=== PATIENT | female | born 1995 | race Caucasian/White ===

== ENCOUNTER 2020-01-23 17:10 | Emergency (ER) | payer SELFPAY ==
--- NOTE | 2020-01-23 17:20 | ED.GENADULT ---
HPI - General Adult General Chief complaint: General Medical Stated complaint: FLU LIKE SYMPTOMS Time Seen by Provider: 01/23/20 17:19 Source: patient Mode of arrival: ambulatory Limitations: no limitations History of Present Illness HPI narrative: Patient presents seeking COVID test. States she has had some mild body aches today around a friend that has COVID like symptoms. Denies any chest pain shortness of breath. No fever. No GI symptoms. Onset (ago): day(s) (today ) Severity: mild Quality: aching Relieving factors: none Exacerbating factors: none Associated symptoms: denies other symptoms Treatments prior to arrival: none Related Data Allergies Allergy/AdvReac Type Severity Reaction Status Date / Time No Known Allergies Allergy Unverified 11/26/19 16:31 Review of Systems Review of Systems: Constitutional: No Weight loss, No Fever, No Chills, No Night Sweats, No Fatigue, No Malaise ENT/Mouth: No Hearing loss, No Ear Pain, No Nasal Congestion, No Sinus Pain, No Hoarseness, No sore throat, No Rhinorrhea, No Swallowing Difficulty Eyes: No Eye Pain, No Swelling, No Redness, No Foreign Body, No Discharge, No Vision Changes Cardiovascular: No Chest Pain, No SOB, No Dyspnea on Exertion, No Orthopnea, No Edema, No Palpitations Respiratory: No Cough, No Sputum, No Wheezing, No Smoke Exposure, No Dyspnea Gastrointestinal: No Nausea, No Vomiting, No Diarrhea, No Constipation, No abdominal Pain, No Hematochezia, No Melena Genitourinary: no irregular bleeding, No Dysuria, No Urinary Frequency, No Hematuria, No Urinary Incontinence, No Urgency, No Flank Pain, No Urinary Flow Changes, No Hesitancy Musculoskeletal: No joint pain, No Myalgias, No Joint Swelling Skin: No Skin Lesions, No rash Neuro: No Weakness, No Numbness, No Paresthesias, No Loss of Consciousness, No Dizziness, No Headache Psych: No Social Issues Heme/Lymph: No Bruising, No Bleeding,No Lymphadenopathy Endocrine: No Polyuria, No Polydipsia, No Temperature Intolerance Yes all other systems are reviewed and are negative [facility] Past Medical History Attestation statement: The following information was validated with the patient. Social History Social History Advance Directives: No Advance Directives Information Provided: Yes Physical Exam Vital Signs: Vital Signs: Reviewed Const: General: cooperative and healthy appearing; No acute distress or intoxicated appearing Nutritional Appearance: average body habitus Orientation/consciousness: patient oriented x3 HENMT: Head: Yes normal to inspection Ears: hearing grossly normal bilaterally Eyes: General: appearance normal, both eyes and all related structures Visual Bryant: normal visual bryant by confrontation Neck: Neck: Yes normal visual inspection, No positive Brudzinski's sign, No positive Kernig's sign and No tender Thyroid: Thyroid normal Chest: Chest palpation & inspection: normal inspection of the chest Resp: Effort & Inspection: normal respiratory effort Cardio: Jugular venous distension: no JVD : General: Yes no CVA tenderness Back/Spine/Pelvis: Back: no CVA tenderness Skin: General skin exam: no rashes or lesions noted Neuro: General: patient oriented x3 Extrem: General: Yes normal to inspection Discharge Plan Discharge Clinical Impression: Viral syndrome Patient Disposition: Home, Self-Care Instructions: Viral Syndrome (ED) Additional Instructions: Based on your symptoms and history we have sent a COVID-19. Although your RESULT IS PENDING at this time. RESULTS should return within 72 hours. At this time you will be contacted with either NEGATIVE OR POSITIVE results. -Please wait until we contact you for your results. At this time you will be okay for discharge. Please plan for self quarantine for up to 14 days. Do not expose yourself to others. You may not go to work. If testing does come back negative you may return to activities as long as you are no longer having any symptoms for at least 3 days. Please continue to follow cold instructions and wash your hands frequently. You may take Tylenol as directed on the bottle for pain or fever. Patient seen in the emergency department on 09/04/2019 and should be excused from work until negative test results AND until 72 hours without any symptoms AND at least 10 days have passed since symptoms first appeared or since last exposure to COVID-19 positive patient CDC Guidelines for home isolation: - Stay away from others - WEAR A MASK if you are sick AND STAY HOME - Cover your mouth and nose with a tissue when you cough or sneeze. Dispose of tissues in a lined trash can and wash your hands immediately with soap and water for at least 20 seconds. If soap and water are not available, clean hands with alcohol-based hand wastewater supervisor that contains at least 60% alcohol. - Clean your hands often with soap and water for at least 20 seconds - Avoid touching your eyes, nose and mouth with unwashed hands - Do not share dishes, drinking glasses, cups, eating utensils, towels, or bedding with other people in your home. After using these items, wash them thoroughly with soap and water or put in the sugar drier. - Clean high-touch surfaces in your isolation area ( sick room and bathroom) every day; let a caregiver clean and disinfect high-touch surfaces in other areas of the home. Clean the area or item with soap and water or another detergent if it is dirty. Then, use a household disinfectant. - Limit contact with pets and animals: If you must care for a pet, wash your hands before and after interacting with them Referrals: Physician,Unknown [Primary Care Provider] - 1 week (Your primary care doctor as needed)
[2020-01-23 17:21] VITALS: BP 118/71; PULSE 86; RESP 16; TEMP 37.4; O2SAT 97; BMI 18.6
== END 2020-01-23 17:55 | disposition home or self-care (01) ==
PROVIDERS: Nurse Practitioner Primary Care; Emergency Provider Emergency Medicine
DX: B34.9 Viral infection, unspecified (principal); M79.10 Myalgia, unspecified site; Z20.828 Contact with and (suspected) exposure to other viral communicable diseases
CPT/HCPCS: 99283; U0003

== ENCOUNTER 2020-03-28 16:20 | Emergency (ER) | payer MEDICAID, SELFPAY ==
[2020-03-28] VITALS (27 sets, daily range): BP systolic 99–110; BP diastolic 72–75; PULSE 18–110; RESP 18–20; TEMP 36.1–36.3; O2SAT 97; BMI 18.2
[2020-03-28] MEDS: LORazepam 2 MG/ML VIAL IM (16:50)
[2020-03-28] MEDS: Haloperidol Lactate 5 MG/ML VIAL IM (16:50)
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
[2020-03-28] MEDS: diphenhydrAMINE HCL 50 MG/ML VIAL IM (17:10)
--- NOTE | 2020-03-28 18:43 | MHC.RECOVSUP ---
ETOH/Substance o Current location: [facility] o Identified substance use concern: - ? Intervention: o ? Plan: o ? Additional information: I was not able to engage with pt. pt was being monitored by sitters due to erratic behaviors. Will attempt again
[2020-03-28] MEDS: Ziprasidone Mesylate 20 MG VIAL 10 MG IM (20:30)
--- NOTE | 2020-03-28 21:58 | PC.NURSE ---
PT NOTED TO HAVE BRUISE TO R FOOT SUPERIOR R SIDE, PROVIDER AWARE, PT HAD COMPLAINED OF PAIN TO R FOOT UPON ARRIVAL.
[2020-03-29 01:52] LABS: COVID-19 Test Negative (Negative)
--- NOTE | 2020-03-29 02:24 | PC.NURSE ---
pt ambulatory to bathroom, has been restless the past few hours. didn't obtain urine sample in time.
--- NOTE | 2020-03-29 02:51 | PC.NURSE ---
pt asking for water, able to sit up and drink without difficulty swallowing.
--- NOTE | 2020-03-29 03:59 | PC.NURSE ---
plan is to discharge patient in morning, pt's uncle has been calling and asking to pick her up.
== END 2020-03-29 04:00 | disposition home or self-care (01) ==
PROVIDERS: Emergency Provider Emergency Medicine
DX: F10.120 Alcohol abuse with intoxication, uncomplicated (principal); Y90.9 Presence of alcohol in blood, level not specified; F19.10 Other psychoactive substance abuse, uncomplicated; S40.812A Abrasion of left upper arm, initial encounter; S40.811A Abrasion of right upper arm, initial encounter; X58.XXXA Exposure to other specified factors, initial encounter; Z20.822 Contact with and (suspected) exposure to COVID-19; Y93.9 Activity, unspecified; Y92.9 Unspecified place or not applicable; Y99.9 Unspecified external cause status
CPT/HCPCS: 36415; 87635; 96372; 99284; J1200; J2060; J3486

== ENCOUNTER 2020-04-15 13:23 | Emergency (ER) | payer MEDICAID, SELFPAY ==
--- NOTE | ~2020-04-15 | XR_ITS ---
EXAMINATION: XR FOOT, RIGHT CLINICAL INFORMATION: Pain and swelling fourth and fifth metatarsal. COMPARISON: None TECHNIQUE: AP, lateral, and oblique views of the right foot. FINDINGS: There are slightly displaced oblique fractures of the midshaft of the fourth and fifth metatarsal. No dislocation. Joint spaces are normal. XR/XR foot RT min 3V IMPRESSION: Fracture of the fourth and fifth metatarsal shaft.
--- NOTE | ~2020-04-15 | XR_ITS ---
EXAMINATION: XR CLAVICLE, RIGHT CLINICAL INFORMATION: Pain in right clavicle COMPARISON: None TECHNIQUE: Two views of the right clavicle. FINDINGS: No fracture of the clavicle. The acromioclavicular and the sternoclavicular joints are normal. Normal glenohumeral joint. Amorphous calcification over the humeral head in the soft tissues consistent with calcific tendinosis/bursitis. This measures about 1.5 cm in length. XR/XR clavicle RT IMPRESSION: 1. No abnormality of the clavicle. 2. Soft tissue calcifications adjacent humeral head consistent with calcific tendinosis/bursitis.
[2020-04-15 15:04] VITALS: BP 109/57; PULSE 69; RESP 17; TEMP 36.8; O2SAT 98; BMI 17.8
--- NOTE | 2020-04-15 15:51 | PC.NURSE ---
pt sleeping in wr, aroused ambulatory with steady gait to main ed, sleeping on stretcher, easily aroused, ewa patel at bedside for exam
--- NOTE | 2020-04-15 16:44 | PC.NURSE ---
ewa patel at bedside for exam and collection of vaginal swabs with pct nerupa present
[2020-04-15 16:59] LABS: MANUAL DIFF FLAG NO
[2020-04-15 17:00] LABS: Basophils Absolute Auto 0.1 X10*3/uL (0.0-0.2); Basophils Percent Auto 0.8 % (0-2); Eosinophils Absolute Auto 0.1 X10*3/uL (0.0-0.4); Eosinophils Percent Auto 1.5 % (0-4); Hematocrit 38.3 % (37-47); Imm Gran Abs Auto 0.02 X10*3/uL (0.00-0.03); Imm Gran Pct Auto 0.3 % (0.0-0.4); Lymphocytes Absolute Auto 3.2 X10*3/uL (1.2-4.9); Lymphocytes Percent Auto 42.7 % (20-40); Mean Corpuscular HGB Conc 33.9 g/dl (31.0-35.0); Mean Corpuscular Volume 91.4 fL (80-98); Mean Platelet Volume 9.1 fL (9.4-12.3); Monocytes Absolute Auto 0.6 X10*3/uL (0.1-1.2); Monocytes Percent Auto 7.4 % (2-11); Neutrophils Absolute Auto 3.6 X10*3/uL (2.0-8.3); Neutrophils Percent Auto 47.3 % (45-73); Platelet Count 276 X10*3/uL (160-400); Red Blood Count 4.19 X10*6/uL (4.20-5.50); Red Cell Distribution Width 12.5 % (11.0-16.0); White Blood Count 7.6 X10*3/uL (4.8-10.8)
[2020-04-15 17:06] LABS: INTERNATIONAL NORM RATIO 1.1 (0.9-1.1); Prothrombin Time 12.5 SEC (10.8-13.0)
[2020-04-15 17:24] LABS: Alanine Aminotransferase 23 U/L (0-31); Albumin Level 4.3 g/dL (3.5-5.0); Alkaline Phosphatase 95 U/L (39-117); Anion Gap 13 (12-20); Aspartate Amino Transferase 25 U/L (5-31); Bilirubin Direct 0.2 mg/dL (0.0-0.5); Bilirubin Total 0.4 mg/dL (0.0-1.0); Blood Urea Nitrogen 13 mg/dL (9-16); Calcium 9.3 mg/dL (8.4-10.2); Carbon Dioxide 28 mmol/L (22-29); Chloride 102 mmol/L (96-108); Creatinine Clr Calc Pharmacy 88.7; Estimated Glomerular Filt Rate > 60; Glucose Random 94 mg/dL (60-115); Magnesium 2.4 mg/dL (1.6-2.6); Potassium 4.3 mmol/L (3.3-5.1); Sodium 139 mmol/L (135-145); Total Protein 7.5 g/dL (6.5-8.0)
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
[2020-04-15 17:40] LABS: Syphilis Screen Nonreactive (Nonreactive)
--- NOTE | 2020-04-15 17:54 | PC.NURSE ---
pt refused covid swab pt still very intoxicated and sleeing no urine sample yet.
[2020-04-15 18:00] VITALS: BP 103/69; PULSE 55; RESP 16; TEMP 37.1; O2SAT 99
[2020-04-15] MEDS: cefTRIAXone sodium 500 MG, Lidocaine HCl 1 % MPF 1 ML IM (18:44)
[2020-04-15 18:48] LABS: HCG Quantitative < 2 mIU/mL
[2020-04-15 20:00] VITALS: PULSE 82; RESP 105; TEMP 36.4
[2020-04-15 20:32] LABS: Glucose Urine UA NEG (NEG); Leukocyte Esterase Urine NEG (NEG); Nitrite Urine POS (NEG); PH 5.5 (5.0-8.0); Specific Gravity - Urine 1.025 (1.005-1.025); UACC Culture Trigger YES; Urine Blood TRACE (NEG); Urine Ketones NEG (NEG); Urine Protein NEG (NEG-TRACE)
[2020-04-15 20:33] LABS: Appearance Urine HAZY; Color Urine YELLOW
[2020-04-15 20:40] LABS: Bacteria Urine 2+ /LPF; RBC Urine 0 /HPF (0); Squamous Epithelial Cell Urine 1+ /LPF; WBC Urine 0 /HPF (0-4)
[2020-04-15 21:50] VITALS: BP 107/72; PULSE 83; RESP 15; TEMP 36.3; O2SAT 97
--- NOTE | 2020-04-15 23:01 | PC.NURSE ---
PT GOT UP AND LEFT AWOKE SHE HAD PREVEIOUSLY SPOKEN TO AND HE WAS ON HIS WAY TO PICK HER UP FROM THE HOSPITAL. PT HAS BEEN EATING AND DRINKING WITHOUT ISSUE AND WAS JUST WAITING FOR URINE RESULTS TO COMPLETE. YESSICA BANDA AWARE PT LEFT.
[2020-04-16 04:03] LABS: CT PCR NOT DETECTED (Not Detect.)
[2020-04-16 04:04] LABS: NG PCR NOT DETECTED (Not Detect.)
[2020-04-16 11:27] LABS: BV Int Neg Control Negative (Negative); BV Int Pos Control Positive (Positive)
[2020-04-18 04:27] LABS: HBS Num1 0.44 mIU/mL (0-7.99); HBc Num1 0.11 S/CO (0.00-0.79); HIV AB/AG Nonreactive (Nonreactive); HIV Num 1 0.09 S/CO (0.00-0.99); Hepatitis B Core Antibody Nonreactive (Nonreactive); Hepatitis B Surface Antigen Negative (Negative); ~Hepatitis B Surface Antibody NONREACTIVE (Nonreactive)
[2020-04-18 04:39] LABS: ~Hepatitis C Antibody Nonreactive (Nonreactive)
[2020-04-20 07:57] LABS: Hepatitis A Antibody IgM 0.09 Index (0-0.79); ~Hepatitis A Antibody IgM Nonreactive (Nonreactive)
== END 2020-04-15 23:11 | disposition left against medical advice (07) ==
PROVIDERS: Physician Assistant Medical; Emergency Provider Emergency Medicine Emergency Medical Services
DX: S92.341A Displaced fracture of fourth metatarsal bone, right foot, initial encounter for closed fracture (principal); S92.351A Displaced fracture of fifth metatarsal bone, right foot, initial encounter for closed fracture; M79.671 Pain in right foot; F14.10 Cocaine abuse, uncomplicated; W01.0XXA Fall on same level from slipping, tripping and stumbling without subsequent striking against object, initial encounter; Y93.9 Activity, unspecified; Y92.009 Unspecified place in unspecified non-institutional (private) residence as the place of occurrence of the external cause; Y99.9 Unspecified external cause status; Z20.2 Contact with and (suspected) exposure to infections with a predominantly sexual mode of transmission
CPT/HCPCS: 36415; 73000; 73630; 80048; 80076; 81001; 81003; 83735; 84702; 85025; 85610; 86704; 86706; 86709; 86780; 86803; 87086; 87088; 87186; 87340; 87389; 87480; 87491; 87510; 87591; 87660; 96372; 99284; J0696

== ENCOUNTER 2020-05-19 14:18 | Outpatient (REF) | payer MEDICAID, SELFPAY ==
[2020-05-21 15:12] LABS: Codeine, Ur NEGATIVE ng/mL (<50); Hydrocodone, Ur NEGATIVE ng/mL (<50); Hydromorphone, Ur NEGATIVE ng/mL (<50); Morphine, Ur NEGATIVE ng/mL (<50); Norhydrocodone, Ur NEGATIVE ng/mL (<50); Noroxycodone, Ur NEGATIVE ng/mL (<50); Oxycodone, Ur NEGATIVE ng/mL (<50); Oxymorphone, Ur NEGATIVE ng/mL (<50)
== END 2020-05-19 14:19 | disposition home or self-care (01) ==
LOC: CF 14:18
PROVIDERS: Visit Provider Nurse Practitioner Psychiatric/Mental Health
DX: F11.10 Opioid abuse, uncomplicated (principal)
CPT/HCPCS: 80305; 80354; 80364; 80365; 99212

== ENCOUNTER → 2020-05-26 13:20 | Outpatient (BNVA) | payer MEDICAID, SELFPAY | PROVIDERS: Visit Provider Nurse Practitioner Psychiatric/Mental Health | DX: F11.99 Opioid use, unspecified with unspecified opioid-induced disorder (principal); F14.10 Cocaine abuse, uncomplicated; N76.0 Acute vaginitis; B96.89 Other specified bacterial agents as the cause of diseases classified elsewhere | CPT/HCPCS: 80305; 81025; 99212 ==

== ENCOUNTER 2020-05-30 13:45 | Emergency (ER) | payer MEDICAID, SELFPAY ==
[2020-05-30 14:04] VITALS: BP 000/00; PULSE 110; RESP 18; TEMP 37; O2SAT 98
[2020-05-30 14:47] LABS: Ethanol < 10 mg/dL
--- NOTE | 2020-05-30 15:27 | ED.ALCOHOL ---
HPI - Alcohol General Chief Complaint: ETOH/Substance Use Stated Complaint: CRISIS Time Seen by Provider: 05/30/20 13:54 Source: EMS Mode of arrival: EMS Limitations: other (Agitation and under the influence) History of Present Illness HPI narrative: 24-year-old female with history of polysubstance abuse preferred cocaine/cannabis and EtOH who presents via EMS with [facility] with complaint of patient was acting bizarre and agitated and acting erratic PD called EMS and patient was transferred to emergency room for potential alcohol abuse versus other illicit substance. She is extremely agitated upon arrival given that she does not want to be here and feels this is unwarranted. MD complaint: alcohol intoxication Chronic alcohol use: No Previous visits for alcohol intoxication: Yes Recent trauma: No Associated symptoms: denies other symptoms Treatments prior to arrival: physical restraints (She was placed in PD custody with handcuffs) Related Data Previous Rx's Medication Instructions Recorded mupirocin 1 appl TOPICAL BID #15 g 05/30/20 buprenorphine 8 mg-naloxone 2 mg 1 film SUBLINGUAL DAILY #7 ea 06/02/20 sublingual film metronidazole 0.75 % vaginal gel 1 appful VAGINAL DAILY 5 Days #70 g 06/02/20 Allergies Allergy/AdvReac Type Severity Reaction Status Date / Time bee venom protein (honey bee) Allergy Intermediate Localized Verified 06/02/20 16:23 swelling near sting Review of Systems Review of Systems: Yes Unobtainable due to mental condition (Agitated , refusing to participate) PMFSH Past Medical History Medical History Substance abuse Physical Exam Vital Signs: Vital Signs: Last Vital Signs Temp 98.6 F 05/30/20 14:04 Pulse 110 H 05/30/20 14:04 Resp 18 05/30/20 14:04 BP 000/00 L 05/30/20 14:04 Pulse Ox 98 05/30/20 14:04 Body Mass Index 20.0 Reviewed Const: General: anxious and combative; No intoxicated appearing Nutritional Appearance: average body habitus Orientation/consciousness: patient oriented x3 HENMT: Head: Yes normal to inspection Ears: hearing grossly normal bilaterally Eyes: General: appearance normal, both eyes and all related structures Visual Bryant: normal visual bryant by confrontation Neck: Neck: Yes normal visual inspection, No positive Brudzinski's sign, No positive Kernig's sign and No tender Thyroid: Thyroid normal Chest: Chest palpation & inspection: normal inspection of the chest Resp: Effort & Inspection: normal respiratory effort Auscultation: clear to auscultation bilaterally Cardio: Jugular venous distension: no JVD Rhythm: regular rhythm Heart sounds: S1 normal heart sound present and S2 normal heart sound present GI: Inspection: Yes normal to inspection Palpation (GI): Soft to palpation Percussion: Yes normal to percussion Auscultation: normal bowel sounds : General: Yes no CVA tenderness Back/Spine/Pelvis: Back: no CVA tenderness Skin: General skin exam: no rashes or lesions noted Neuro: General: patient oriented x3 Extrem: General: Yes normal to inspection Course Course Course Narrative: Extremely agitated upon arrival but able to redirect. Similar to previous. Patient's. No SI or HI. Admits to illicit substance use. The the answer is a. Denies any need to go to detox or speak to anybody here. Requesting to be discharged. MDM - Alcohol Lab Data Labs: Lab Results 05/30/20 Range/Units 14:14 Ethyl Alcohol < 10 mg/dL Discharge Plan Discharge Clinical Impression: Substance abuse, Anxiety, Abrasion of forearm, left Patient Disposition: Home, Self-Care Instructions: Polysubstance Abuse (ED), Anxiety (ED) Additional Instructions: Please go to detox Follow up with her primary care doctor Return if any concerns or worsening symptoms Thank you Prescriptions: New mupirocin 2 % ointment 1 appl topical BID Qty: 15 RF: 0 No Action buprenorphine-naloxone [Suboxone] 8-2 mg film 1 film sublingual DAILY Qty: 7 RF: 0 metronidazole 0.75 % gel 1 appful vaginal DAILY 5 Days Qty: 70 RF: 0 Referrals: ED Physician,Generic [Physician] - 2 days Interventions: ED Discharge Assessment Last Done: 05/30/20 15:41 Discharge Date/Time: 05/30/20 15:43
--- NOTE | 2020-05-30 15:40 | PC.NURSE ---
Pt's ETOH level negative. She was becoming very agitated yelling and screaming that she wanted to leave. Per [employer]ONECUTTER Norbert okay to leave. Pt's belongings given back to her including crumpled up money <$80 that was in her pocket. Pt escorted out of the building by security.
== END 2020-05-30 15:43 | disposition home or self-care (01) ==
PROVIDERS: Nurse Practitioner Primary Care; Emergency Provider Emergency Medicine
DX: S50.812A Abrasion of left forearm, initial encounter (principal); F10.129 Alcohol abuse with intoxication, unspecified; M79.632 Pain in left forearm; F41.1 Generalized anxiety disorder; F43.0 Acute stress reaction; Y90.0 Blood alcohol level of less than 20 mg/100 ml; X58.XXXA Exposure to other specified factors, initial encounter; Y93.9 Activity, unspecified; Y92.9 Unspecified place or not applicable; Y99.9 Unspecified external cause status; Z71.41 Alcohol abuse counseling and surveillance of alcoholic
CPT/HCPCS: 36415; 80320; 99283

== ENCOUNTER → 2020-06-02 15:40 | Outpatient (BNVA) | payer MEDICAID, SELFPAY | PROVIDERS: Visit Provider Nurse Practitioner Psychiatric/Mental Health | DX: F11.99 Opioid use, unspecified with unspecified opioid-induced disorder (principal); F14.10 Cocaine abuse, uncomplicated; Z51.81 Encounter for therapeutic drug level monitoring | CPT/HCPCS: 80305; 99212 ==

== ENCOUNTER → 2020-06-09 15:45 | Outpatient (BNVA) | payer MEDICAID, SELFPAY | PROVIDERS: Visit Provider Nurse Practitioner Psychiatric/Mental Health | DX: Z51.81 Encounter for therapeutic drug level monitoring (principal); F19.10 Other psychoactive substance abuse, uncomplicated ==

== ENCOUNTER → 2020-06-10 10:40 | Outpatient (BNVA) | payer MEDICAID, SELFPAY | PROVIDERS: Visit Provider Nurse Practitioner Psychiatric/Mental Health ==

== ENCOUNTER 2020-07-08 12:08 | Emergency (ER) | payer MEDICAID, SELFPAY ==
--- NOTE | ~2020-07-08 | XR_ITS ---
EXAMINATION: XR SHOULDER, RIGHT CLINICAL INFORMATION: Injury. COMPARISON: X-ray 04/15/2020 right clavicle TECHNIQUE: Four views of the right shoulder. FINDINGS: There is a lucency in the greater tuberosity/lateral humeral head, which appears new as compared to the prior radiograph. There are calcifications/ossifications adjacent to this focus, which appears more prominent as compared to the prior radiograph. The findings raise concern for a fracture with displaced osseous fragments in addition to the previously noted calcific tendinitis/bursitis in this region. The humeral head articulates with the glenoid. AC joint is intact. Visualized right lung is clear. XR/XR shoulder RT min 2V IMPRESSION: New lucency in the greater tuberosity/lateral humeral head, with increase in prominence of the calcifications/ossifications adjacent to the greater tuberosity. Findings raise concern for a fracture with displaced osseous fragments in addition to the previously noted calcific tendinitis/bursitis in this region. Please clinically correlate.
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
--- NOTE | ~2020-07-08 | XR_ITS ---
EXAMINATION: XR FINGER, LEFT CLINICAL INFORMATION: Injury index finger COMPARISON: None TECHNIQUE: 3 views of the 2nd digit. FINDINGS: Second digit: No visible acute fracture or dislocation. The articulation appears maintained at the joints. The remainder of the visualized bones appear intact without evidence of discrete fracture. XR/XR finger LT min 2V IMPRESSION: No radiographically visible acute fracture or dislocation of the 2nd digit.
[2020-07-08 12:26] VITALS: BP 106/84; BP 110/82; PULSE 81; PULSE 84; RESP 16; TEMP 36.7; O2SAT 96; BMI 15.9
[2020-07-08] MEDS: Diphth,Pertus(ACell),Tet Adult 0.5 ML SYRINGE IM (12:50)
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
== END 2020-07-08 15:23 ==
PROVIDERS: Emergency Provider Emergency Medicine
DX: S60.022A Contusion of left index finger without damage to nail, initial encounter (principal); S00.03XA Contusion of scalp, initial encounter; S43.401A Unspecified sprain of right shoulder joint, initial encounter; S00.81XA Abrasion of other part of head, initial encounter; Y35.893A Legal intervention involving other specified means, suspect injured, initial encounter; F11.20 Opioid dependence, uncomplicated; Y93.89 Activity, other specified; Y92.512 Supermarket, store or market as the place of occurrence of the external cause; Y99.9 Unspecified external cause status
CPT/HCPCS: 70450; 73030; 73140; 90471; 90715; 99283; 99284

== ENCOUNTER 2020-08-04 07:13 | Emergency (ER) | payer MEDICAID, SELFPAY ==
[2020-08-04 07:17] VITALS: BP 143/83; PULSE 91; RESP 20; TEMP 36.6; O2SAT 97; BMI 19.5
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
[2020-08-04] MEDS: cefTRIAXone sodium 500 MG, Lidocaine HCl 1 % MPF 1 ML IM (08:07)
[2020-08-04 08:08] LABS: UPreg QC Valid YES
[2020-08-04 08:11] LABS: Urine Pregnancy NEGATIVE (NEGATIVE)
[2020-08-04 08:12] VITALS: BP 103/71; PULSE 89; RESP 20; O2SAT 97
--- NOTE | 2020-08-04 08:18 | PC.NURSE ---
Pt alert, answers questions appropriately. Pt anxious, pacing. UA obtained, NG swab obtained. Lab results pending.
[2020-08-04 10:48] LABS: CT PCR NOT DETECTED (Not Detect.); NG PCR NOT DETECTED (Not Detect.)
== END 2020-08-04 08:31 | disposition home or self-care (01) ==
LOC: HO.ED 07:40
PROVIDERS: Emergency Provider Emergency Medicine
DX: L03.211 Cellulitis of face (principal); N89.8 Other specified noninflammatory disorders of vagina; L98.9 Disorder of the skin and subcutaneous tissue, unspecified; F11.10 Opioid abuse, uncomplicated; Z79.899 Other long term (current) drug therapy; F17.200 Nicotine dependence, unspecified, uncomplicated; Z71.6 Tobacco abuse counseling; Z20.2 Contact with and (suspected) exposure to infections with a predominantly sexual mode of transmission
CPT/HCPCS: 81025; 87491; 87591; 96372; 99284; J0696

== ENCOUNTER 2020-09-19 13:27 | Inpatient (IN) | payer MEDICAID, SELFPAY ==
[2020-09-19] VITALS (15 sets, daily range): BP systolic 100–185; BP diastolic 64–100; PULSE 86–120; RESP 16–50; TEMP 36.6–38.2; O2SAT 90–100; BMI 20.5
--- NOTE | ~2020-09-19 | XR_ITS ---
EXAMINATION: XR CHEST CLINICAL INFORMATION: Aspiration COMPARISON: None TECHNIQUE: Frontal view of the chest was obtained. FINDINGS: Allowing for the supine positioning, no significant abnormality is noted involving the heart, lungs, mediastinum, bony thorax or soft tissues. XR/XR chest 1V IMPRESSION: No acute intrathoracic disease.
--- NOTE | ~2020-09-19 | CT_ITS ---
EXAMINATION: CT HEAD WITHOUT CONTRAST CT CERVICAL SPINE WITHOUT CONTRAST CLINICAL INFORMATION: Altered mental status. COMPARISON: CT head from 07/08/2020. TECHNIQUE: Contiguous axial imaging was performed from the skull base to vertex without intravenous administration of contrast. Contiguous axial imaging was performed from the upper chest through the skull base without intravenous administration of contrast. Coronal and sagittal reformats were obtained at the acquisition workstation. DLP: 1039 mGy-cm FINDINGS: Head: Exam is significantly motion degraded. Within this limitation, there is no overt evidence of acute intracranial hemorrhage or edematous territorial infarction. No demonstrated abnormal attenuation within the brain parenchyma. Redemonstrated loss of jean-white matter differentiation. The ventricles are normal in size and configuration. No evidence for obstructive hydrocephalus. No abnormal mass effect or midline shift. No extra-axial fluid collections. No acute soft tissue or osseous abnormalities. The mastoid air cells and paranasal sinuses are clear. Cervical Spine: Exam is moderately motion degraded. The atlantooccipital and atlantoaxial articulations remain well aligned. Mild reversal of the normal cervical lordosis centered on C4. Otherwise, there is anatomic alignment of the vertebral bodies and posterior elements. No evidence of acute fracture or subluxation. The vertebral body heights and disc spaces are maintained. There is no prevertebral soft tissue swelling. The thyroid gland and remaining cervical soft tissues are normal in appearance. Moderate multifocal airspace opacities in the dependent aspects of the visualized upper lungs. CT/CT cervical spine wo con IMPRESSION: Exam is significantly motion degraded. Within the limitations of this exam, there is no evidence of acute intracranial hemorrhage or edematous territorial infarction. No evidence of acute fracture or subluxation of the cervical spine. Moderate multifocal airspace opacities in the visualized upper lungs suggestive of an active infectious/inflammatory process.
--- NOTE | ~2020-09-19 | CT_ITS ---
EXAMINATION: CT CHEST WITHOUT CONTRAST CLINICAL INFORMATION: AMS rule out pneumonia. COMPARISON: Chest x-ray 08/20/2020 TECHNIQUE: Multidetector volumetric CT imaging of the chest was done. Axial MIP volume rendering provided. Sagittal and coronal reformatted images were obtained. This CT examination was performed using dose optimization techniques as appropriate, variously including the following: *Automated exposure control *Adjustment of mA and/or kV according to patient size (this includes techniques or standardized protocols for targeted exams where dose is matched to indication/reason for exam; i.e. extremities or head) *Use of iterative reconstruction technique DLP: 285 mGy-cm FINDINGS: PHOTOGRAPHY SPOTTER: Unremarkable chest exam. LUNGS: The exam is limited secondary to breathing artifact throughout the exam. The lungs are well-expanded with radicular stranding and patchy opacity in both upper lobes posterior segments and both superior segments of lower lobe consistent with dependent aspiration pneumonia or infiltrates. May similar minimal patchy of patchy opacity seen in both lung bases as well. No pulmonary nodules or enlarged mass visualized. MEDIASTINUM: The central trachea and bronchi are widely patent. Heart size and the great vessels are normal caliber. No abnormal size mediastinal or hilar lymph nodes seen. There is no pericardial effusion. PLEURA: There is no pleural effusion. No pleural mass or thickening. AXILLA: There are no abnormal size axillary lymph nodes. UPPER ABDOMEN: Visualized liver, spleen, pancreas and bilateral adrenal glands are unremarkable. OSSEOUS STRUCTURES: No lytic or sclerotic process seen. CT/CT chest wo con IMPRESSION: Bilateral posterior segment upper lobe, superior and posterior basilar segments lower lobe parenchymal opacities likely dependent aspiration pneumonia. There is no lung nodule or mass seen. No abnormal size mediastinal or axillary lymphadenopathy.
--- NOTE | 2020-09-19 13:48 | ECG_ITS ---
Test Reason : AMS Blood Pressure : / mmHG Vent. Rate : 113 BPM Atrial Rate : 113 BPM P-R Int : 200 ms QRS Dur : 092 ms QT Int : 304 ms P-R-T Axes : 068 -33 047 degrees QTc Int : 416 ms Sinus tachycardia Left axis deviation Incomplete right bundle branch block Nonspecific ST changes Abnormal ECG No previous ECGs available Referred By: Carmelita Barbosa Electronically Signed By:Omar Fernandes
--- NOTE | 2020-09-19 14:04 | ED_ITS ---
HPI - Altered Mental Status General Chief Complaint: Altered Mental Status <YESSICA Hall - Last Filed: 09/19/20 17:49> Stated Complaint: AMS <YESSICA Hall - Last Filed: 09/19/20 17:49> Time Seen by Provider: 09/19/20 13:44 <YESSICA Hall - Last Filed: 09/19/20 17:49> Source: EMS <YESSICA Hall - Last Filed: 09/19/20 17:49> Mode of arrival: EMS <YESSICA Hall - Last Filed: 09/19/20 17:49> Limitations: altered mental status <YESSICA Hall - Last Filed: 09/19/20 17:49> History of Present Illness HPI narrative: 25-year-old female with a past medical history of polysubstance abuse per for cocaine/cannabis and EtOH who presents via EMS with altered mental status after her friend apparently called her brother and told him that she was not waking up there for her brother and his friend went to her apartment and noticed that she was breathing heavily per the friend over the phone and called EMS. Although the friend over the phone at the number that were supposed to call for the brother reports that she does not know much else and that the brother should be coming to the emergency department. On exam patient is acting bizarre, agitated and not providing any history. - I spoke to the patient's sister in a call at [phone] and she reported that she is very concerned about her sister would like her to be committed due to she believes her sister is going to harm herself by doing drugs. She is concerned because her parents both overdose approximately 3 years ago and Saima has not taken it well. She also is living in her parent's old house which is condemned. <YESSICA Hall - Last Filed: 09/19/20 17:49> MD complaint: altered mental status <YESSICA Hall - Last Filed: 09/19/20 17:49> Related Data Home Medications: Previous Rx's Medication Instructions Recorded mupirocin 1 appl TOPICAL BID #15 g 05/30/20 buprenorphine 8 mg-naloxone 2 mg 1 film SUBLINGUAL DAILY #7 ea 06/02/20 sublingual film metronidazole 0.75 % vaginal gel 1 appful VAGINAL DAILY 5 Days #70 g 06/02/20 cephalexin 500 mg PO BID 7 Days #14 cap 08/04/20 doxycycline hyclate 100 mg PO BID 7 Days #14 cap 08/04/20 mupirocin 1 appl TOPICAL BID 7 Days #15 g 08/04/20 <YESSICA Hall - Last Filed: 09/19/20 17:49> Allergies/Adverse Reactions: Allergies Allergy/AdvReac Type Severity Reaction Status Date / Time bee venom protein (honey bee) Allergy Intermediate Localized Verified 08/04/20 07:20 swelling near sting <YESSICA Hall - Last Filed: 09/19/20 17:49> Review of Systems Review of Systems: Yes Unobtainable due to mental status <YESSICA Hall - Last Filed: 09/19/20 17:49> FORMERLY [facility], [facility] Past Medical History Source: obtained from family <YESSICA Hall - Last Filed: 09/19/20 17:49> Medical History: Medical History Substance abuse <YESSICA Hall - Last Filed: 09/19/20 17:49> Social History Social History: Social History Patient Tobacco Use Status: Current someday Tobacco user Substance Use Type: Crack/Cocaine Advance Directives: Yes Advance Directives Information Provided: Yes Advance Directives on File: No <YESSICA Hall - Last Filed: 09/19/20 17:49> Physical Exam Vital Signs: Vital Signs: Last Vital Signs Temp 98.7 F 09/19/20 19:46 Pulse 88 09/19/20 19:46 Resp 32 H 09/19/20 19:46 BP 100/64 09/19/20 19:46 Pulse Ox 98 09/19/20 19:46 Body Mass Index 20.5 Vital signs have been reviewed as normal and appeared to be correct. Blood pressure normal. Heart rate normal. Respiration rate normal. Temperature normal. Oxygen saturation normal. <YESSICA Hall - Last Filed: 09/19/20 17:49> Vital Signs: Last Vital Signs Temp 98.7 F 09/19/20 19:46 Pulse 88 09/19/20 19:46 Resp 32 H 09/19/20 19:46 BP 100/64 09/19/20 19:46 Pulse Ox 98 09/19/20 19:46 Body Mass Index 20.5 <John Durham MD - Last Filed: 09/19/20 20:54> Appearance: Altered/anxious/combative/agitated. Appears intoxicated very disheveled and unkept. Head: Patient has multiple bruises/abrasions on her face/forehead and she has possible dirt in her nose and her mouth versus blood. Otherwise she is able to rotate head bilaterally. Eyes: Pupils are dilated although minimaql reactive to light. No nystagmus is noted. Conjunctiva and sclera normal. Eyelids normal. Corneal reflex normal. ENT: EAC normal. TM's Normal. No septal hematomas noted. No hemotympanum is noted. Hearing normal. Pharynx normal. Uvula midline. tongue midline. Dry mucous membranes. No trismus noted. No drooling noted. No muffled voice noted. No nystagmus noted. Neck: Normal inspection. Neck supple. FROM. No adenopathy. Trachea midline. Thyroid Normal. No meningeal signs. No neck mass noted. CVS: Normal heart rate and rhythm. Heart sound normal. No murmurs noted. Pulses normal throughout. Respiratory: No respiratory distress. Painless inspiration. Breath sounds normal. No wheezes/rales/rhonchi noted. Chest nontender. No accessory muscle usage noted or decreased air movement noted. Abdomen: Soft and nontender. Bowel sounds normal in all 4 quadrants. No distention noted. No organomegaly noted. No visible injury noted. Questioning as patient's abdomen is mildly distended. Back: No CVA tenderness. Full range of motion noted. Skin: Skin warm and dry. Normal skin color. Normal skin turgor. Patient has multiple abrasions/lesions/ecchymosis scattered throughout the entire body. No lacerations are noted. Extremities: No lower extremity edema. Extremities exhibit normal range of motion. Extremities nontender. Neuro: Altered/anxious/combative/agitated appears very intoxicated. No motor deficit. No sensory deficit. Reflexes normal. Moving all extremities. No focal motor deficits. <YESSICA Hall - Last Filed: 09/19/20 17:49> Course Course Course Narrative: 13:50pm - 25-year-old female with a past medical history of polysubstance abuse usually cocaine/cannabis and EtOH presenting to the ED via EMS with altered mental status found by her friend/brother they called EMS. When EMS arrived they noticed that the patient had multiple empty bottles of Percocet and Suboxone laying around her. - On arrival patient is very combative/agitated/anxious not providing any hist ory she appears very disheveled and unkept. Pupils are dilated although reactive. She has multiple abrasions/lesions/ecchymosis scattered throughout the face and the body. Questioning dry blood to the oropharynx/nasal passages versus dirt. Otherwise she is moving all extremities. No focal neuro deficits are noted. No obvious signs of trauma. Plan: POC, Labs, blood cultures, lactic acid, UA, drugs of abuse screen, EKG then re-evaluate. <YESSICA Hall - Last Filed: 09/19/20 17:49> Reevaluation(s) Reevaluation #1: - patient became very agitated and she dove over the bed therefore she had to be chemically restrained with 2 mg of IM Ativan and 5 mg of IM Haldol. - labs return patient with an elevated white blood cell count 54587. Lactic acid 3.4. AST 82. Serum quant negative for . Patient negative for salicylates although Tylenol level was 23 therefore will re-evaluate in 3 hours. Otherwise all other labs appear to be within normal limits. ETOH level negative. Pending drugs of abuse screen/UA, CT scan of brain/cervical spine/Chest/abd/pelvis without contrast - due to patient's elevated white blood cell count and lactic acid patient will be given Rocephin for possible cellulitis due to she has multiple abrasions/ecchymosis/erythematous areas that could be related to cellulitis otherwise no other signs of infection/sepsis. <YESSICA Hall - Last Filed: 09/19/20 17:49> Patient post CT scan head and C-spine which is negative for any acute bleed or dislocation patient has to be given 80 mg of propofol for sedation for the test Cat catheter was placed and about 2 L of urine came out symptoms likely matching anticholinergic overdose although we not seen any tablets next to her continue to watch <John Durham MD - Last Filed: 09/19/20 20:54> Time: 15:00 <YESSICA Hall - Last Filed: 09/19/20 17:49> 18:55 <John Durham MD - Last Filed: 09/19/20 20:54> Reevaluation #2: - patient continues to be very agitated/restless therefore she was given 4 additional units of IV Ativan so we can actually have the patient have the CT scan of her brain/cervical spine/Chest/abd/pelvis without constrast - Repeat labs pending - Sign out to MD Herminio pending above <YESSICA Hall - Last Filed: 09/19/20 17:49> Time: 17:31 <YESSICA Hall - Last Filed: 09/19/20 17:49> MDM - Altered Mental Status MDM Narrative Medical decision making narrative: Patient with polysubstance abuse came very agitated received multiple doses of benzos along with Zyprexa and Haldol still patient is agitated people's dilated will give her propofol 50 mg IM. Will get head CT and C-spine CT. Check venous gases repeat acetaminophen levels in 4 hours Patient's labs reviewed patient has rhabdomyolysis [place] CP[place] was [address] with opiates and cocaine positive. Will admit patient for rhabdomyolysis and substance abuse/overdose at this time patient is sleeping with stable vitals started on bicarb drip will give calcium gluconate also <John Durham MD - Last Filed: 09/19/20 20:54> Medical Records Attestation: I reviewed the patient's medical records. <YESSICA Hall - Last Filed: 09/19/20 17:49> I reviewed the patient's medical records. <John Durham MD - Last Filed: 09/19/20 20:54> Lab Data Attestation: I reviewed the patient's lab results. <YESSICA Hall - Last Filed: 09/19/20 17:49> I reviewed the patient's lab results. <John Durham MD - Last Filed: 09/19/20 20:54> Result diagrams: : 09/19/20 17:00 09/19/20 19:39 <YESSICA Hall - Last Filed: 09/19/20 17:49> Labs: Lab Results 09/19/20 09/19/20 09/19/20 Range/Units 00:00 14:09 14:09 WBC 18.6 H (4.8-10.8) X10*3/uL RBC 4.49 (4.20-5.50) X10*6/uL Hgb 13.9 (12.0-16.0) g/dl Hct 40.6 (37-47) % MCV 90.4 (80-98) fL MCH 31.0 (27.0-33.0) pg MCHC 34.2 (31.0-35.0) g/dl RDW 12.1 (11.0-16.0) % Plt Count 262 (160-400) X10*3/uL MPV 9.5 (9.4-12.3) fL Immature Gran % (Auto) 0.4 (0.0-0.4) % Neut % (Auto) 93.2 H (45-73) % Lymph % (Auto) 3.8 L (20-40) % [place] % (Auto) 2.4 (2-11) % Eos % (Auto) 0.0 (0-4) % Baso % (Auto) 0.2 (0-2) % Lymph # (Auto) 0.7 L (1.2-4.9) X10*3/uL [place] # (Auto) 0.5 (0.1-1.2) X10*3/uL Eos # (Auto) 0.0 (0.0-0.4) X10*3/uL Baso # (Auto) 0.0 (0.0-0.2) X10*3/uL Abs Immat Gran (auto) 0.07 H (0.00-0.03) X10*3/uL Absolute Neuts (auto) 17.3 H (2.0-8.3) X10*3/uL Absolute Nucleated RBC 0.000 (0.0-0.012) X10*3/uL Nucleated RBC % (auto) 0.0 (0.0-0.2) /100WBC Smear Tech's Comments VERIFIED Hold Purple Top PT 12.8 (9.9-13.0) SEC INR 1.1 (0.9-1.1) VBG pH (7.32-7.43) VBG pCO2 mmHg VBG pO2 mmHg VBG HCO3 (22-26) mmol/L VBG O2 Saturation % VBG Base Excess mmol/L Sodium (135-145) mmol/L Potassium (3.3-5.1) mmol/L Chloride (96-108) mmol/L Carbon Dioxide (22-29) mmol/L Anion Gap (12-20) BUN (9-16) mg/dL Creatinine (0.5-1.4) mg/dL Estim Creat Clear Calc Estimated GFR POC Glucose (60-115) mg/dL Random Glucose (60-115) mg/dL Lactic Acid (0.5-2.0) mmol/L Lactic Acid Fup @ 2Hr (0.5-2.0) mmol/L Lactic Acid Fup @ 4Hr (0.5-2.0) mmol/L Calcium (8.4-10.2) mg/dL Magnesium (1.6-2.6) mg/dL Total Bilirubin (0.0-1.0) mg/dL AST (5-31) U/L ALT (0-31) U/L Alkaline Phosphatase (39-117) U/L Ammonia (13-55) umol/L Total Creatine Kinase (26-140) U/L Troponin I High Sens (<3.5-17.0) ng/L Total Protein (6.5-8.0) g/dL Albumin (3.5-5.0) g/dL Lipase (8-78) U/L Beta HCG, Quant mIU/mL Urine Color Urine Appearance Urine pH (5.0-8.0) Ur Specific [place] (1.005-1.025) Urine Protein (NEG-TRACE) MG/DL Urine Glucose (UA) (NEG) MG/DL Urine Ketones (NEG) MG/DL Urine Blood (NEG) Urine Nitrite (NEG) Ur Leukocyte Esterase (NEG) Urine RBC (0) /HPF Urine WBC (0-4) /HPF Ur Squamous Epith Cells /LPF Amorphous Sediment /LPF Urine Bacteria /LPF Urine Mucus /LPF Salicylates (15-30) mg/dL Urine Opiates Screen (Not Detect) Acetaminophen (<30) mcg/mL Ur Barbiturates Screen (Not Detect) Ur Phencyclidine Scrn (Not Detect) Ur Amphetamines Screen (Not Detect) U Benzodiazepines Scrn (Not Detect) Urine Cocaine Screen (Not Detect) U Marijuana (THC) Screen (Not Detect) Ethyl Alcohol mg/dL COVID-19 ([facility]) Negative (Negative) COVID-19 Clin Com See Note 09/19/20 09/19/20 09/19/20 Range/Units 14:09 14:09 14:09 WBC (4.8-10.8) X10*3/uL RBC (4.20-5.50) X10*6/uL Hgb (12.0-16.0) g/dl Hct (37-47) % MCV (80-98) fL MCH (27.0-33.0) pg MCHC (31.0-35.0) g/dl RDW (11.0-16.0) % Plt Count (160-400) X10*3/uL MPV (9.4-12.3) fL Immature Gran % (Auto) (0.0-0.4) % Neut % (Auto) (45-73) % Lymph % (Auto) (20-40) % [place] % (Auto) (2-11) % Eos % (Auto) (0-4) % Baso % (Auto) (0-2) % Lymph # (Auto) (1.2-4.9) X10*3/uL [place] # (Auto) (0.1-1.2) X10*3/uL Eos # (Auto) (0.0-0.4) X10*3/uL Baso # (Auto) (0.0-0.2) X10*3/uL Abs Immat Gran (auto) (0.00-0.03) X10*3/uL Absolute Neuts (auto) (2.0-8.3) X10*3/uL Absolute Nucleated RBC (0.0-0.012) X10*3/uL Nucleated RBC % (auto) (0.0-0.2) /100WBC Smear Tech's Comments Hold Purple Top SEE NOTE PT (9.9-13.0) SEC INR (0.9-1.1) VBG pH (7.32-7.43) VBG pCO2 mmHg VBG pO2 mmHg VBG HCO3 (22-26) mmol/L VBG O2 Saturation % VBG Base Excess mmol/L Sodium 139 (135-145) mmol/L Potassium 3.3 D (3.3-5.1) mmol/L Chloride 101 (96-108) mmol/L Carbon Dioxide 19 L (22-29) mmol/L Anion Gap 22 H (12-20) BUN 13 (9-16) mg/dL Creatinine 0.95 (0.5-1.4) mg/dL Estim Creat Clear Calc 78.5 Estimated GFR > 60 POC Glucose (60-115) mg/dL Random Glucose 73 (60-115) mg/dL Lactic Acid (0.5-2.0) mmol/L Lactic Acid Fup @ 2Hr (0.5-2.0) mmol/L Lactic Acid Fup @ 4Hr (0.5-2.0) mmol/L Calcium 9.1 (8.4-10.2) mg/dL Magnesium 2.6 (1.6-2.6) mg/dL Total Bilirubin 0.2 (0.0-1.0) mg/dL AST 82 H (5-31) U/L ALT 30 (0-31) U/L Alkaline Phosphatase 88 (39-117) U/L Ammonia (13-55) umol/L Total Creatine Kinase (26-140) U/L Troponin I High Sens (<3.5-17.0) ng/L Total Protein 8.9 H (6.5-8.0) g/dL Albumin 5.0 (3.5-5.0) g/dL Lipase 26 (8-78) U/L Beta HCG, Quant < 2 mIU/mL Urine Color Urine Appearance Urine pH (5.0-8.0) Ur Specific [place] (1.005-1.025) Urine Protein (NEG-TRACE) MG/DL Urine Glucose (UA) (NEG) MG/DL Urine Ketones (NEG) MG/DL Urine Blood (NEG) Urine Nitrite (NEG) Ur Leukocyte Esterase (NEG) Urine RBC (0) /HPF Urine WBC (0-4) /HPF Ur Squamous Epith Cells /LPF Amorphous Sediment /LPF Urine Bacteria /LPF Urine Mucus /LPF Salicylates (15-30) mg/dL Urine Opiates Screen (Not Detect) Acetaminophen (<30) mcg/mL Ur Barbiturates Screen (Not Detect) Ur Phencyclidine Scrn (Not Detect) Ur Amphetamines Screen (Not Detect) U Benzodiazepines Scrn (Not Detect) Urine Cocaine Screen (Not Detect) U Marijuana (THC) Screen (Not Detect) Ethyl Alcohol mg/dL COVID-19 ([facility]) (Negative) COVID-19 Clin Com 09/19/20 09/19/20 09/19/20 Range/Units 14:09 14:09 14:10 WBC (4.8-10.8) X10*3/uL RBC (4.20-5.50) X10*6/uL Hgb (12.0-16.0) g/dl Hct (37-47) % MCV (80-98) fL MCH (27.0-33.0) pg MCHC (31.0-35.0) g/dl RDW (11.0-16.0) % Plt Count (160-400) X10*3/uL MPV (9.4-12.3) fL Immature Gran % (Auto) (0.0-0.4) % Neut % (Auto) (45-73) % Lymph % (Auto) (20-40) % [place] % (Auto) (2-11) % Eos % (Auto) (0-4) % Baso % (Auto) (0-2) % Lymph # (Auto) (1.2-4.9) X10*3/uL [place] # (Auto) (0.1-1.2) X10*3/uL Eos # (Auto) (0.0-0.4) X10*3/uL Baso # (Auto) (0.0-0.2) X10*3/uL Abs Immat Gran (auto) (0.00-0.03) X10*3/uL Absolute Neuts (auto) (2.0-8.3) X10*3/uL Absolute Nucleated RBC (0.0-0.012) X10*3/uL Nucleated RBC % (auto) (0.0-0.2) /100WBC Smear Tech's Comments Hold Purple Top PT (9.9-13.0) SEC INR (0.9-1.1) VBG pH (7.32-7.43) VBG pCO2 mmHg VBG pO2 mmHg VBG HCO3 (22-26) mmol/L VBG O2 Saturation % VBG Base Excess mmol/L Sodium (135-145) mmol/L Potassium (3.3-5.1) mmol/L Chloride (96-108) mmol/L Carbon Dioxide (22-29) mmol/L Anion Gap (12-20) BUN (9-16) mg/dL Creatinine (0.5-1.4) mg/dL Estim Creat Clear Calc Estimated GFR POC Glucose (60-115) mg/dL Random Glucose (60-115) mg/dL Lactic Acid 3.4 H* (0.5-2.0) mmol/L Lactic Acid Fup @ 2Hr (0.5-2.0) mmol/L Lactic Acid Fup @ 4Hr (0.5-2.0) mmol/L Calcium (8.4-10.2) mg/dL Magnesium (1.6-2.6) mg/dL Total Bilirubin (0.0-1.0) mg/dL AST (5-31) U/L ALT (0-31) U/L Alkaline Phosphatase (39-117) U/L Ammonia (13-55) umol/L Total Creatine Kinase (26-140) U/L Troponin I High Sens (<3.5-17.0) ng/L Total Protein (6.5-8.0) g/dL Albumin (3.5-5.0) g/dL Lipase (8-78) U/L Beta HCG, Quant mIU/mL Urine Color Urine Appearance Urine pH (5.0-8.0) Ur Specific [place] (1.005-1.025) Urine Protein (NEG-TRACE) MG/DL Urine Glucose (UA) (NEG) MG/DL Urine Ketones (NEG) MG/DL Urine Blood (NEG) Urine Nitrite (NEG) Ur Leukocyte Esterase (NEG) Urine RBC (0) /HPF Urine WBC (0-4) /HPF Ur Squamous Epith Cells /LPF Amorphous Sediment /LPF Urine Bacteria /LPF Urine Mucus /LPF Salicylates < 5.0 L (15-30) mg/dL Urine Opiates Screen (Not Detect) Acetaminophen 23 (<30) mcg/mL Ur Barbiturates Screen (Not Detect) Ur Phencyclidine Scrn (Not Detect) Ur Amphetamines Screen (Not Detect) U Benzodiazepines Scrn (Not Detect) Urine Cocaine Screen (Not Detect) U Marijuana (THC) Screen (Not Detect) Ethyl Alcohol < 10 mg/dL COVID-19 ([facility]) (Negative) COVID-19 Clin Com 09/19/20 09/19/20 09/19/20 Range/Units 14:10 15:47 15:47 WBC (4.8-10.8) X10*3/uL RBC (4.20-5.50) X10*6/uL Hgb (12.0-16.0) g/dl Hct (37-47) % MCV (80-98) fL MCH (27.0-33.0) pg MCHC (31.0-35.0) g/dl RDW (11.0-16.0) % Plt Count (160-400) X10*3/uL MPV (9.4-12.3) fL Immature Gran % (Auto) (0.0-0.4) % Neut % (Auto) (45-73) % Lymph % (Auto) (20-40) % [place] % (Auto) (2-11) % Eos % (Auto) (0-4) % Baso % (Auto) (0-2) % Lymph # (Auto) (1.2-4.9) X10*3/uL [place] # (Auto) (0.1-1.2) X10*3/uL Eos # (Auto) (0.0-0.4) X10*3/uL Baso # (Auto) (0.0-0.2) X10*3/uL Abs Immat Gran (auto) (0.00-0.03) X10*3/uL Absolute Neuts (auto) (2.0-8.3) X10*3/uL Absolute Nucleated RBC (0.0-0.012) X10*3/uL Nucleated RBC % (auto) (0.0-0.2) /100WBC Smear Tech's Comments Hold Purple Top PT (9.9-13.0) SEC INR (0.9-1.1) VBG pH (7.32-7.43) VBG pCO2 mmHg VBG pO2 mmHg VBG HCO3 (22-26) mmol/L VBG O2 Saturation % VBG Base Excess mmol/L Sodium (135-145) mmol/L Potassium (3.3-5.1) mmol/L Chloride (96-108) mmol/L Carbon Dioxide (22-29) mmol/L Anion Gap (12-20) BUN (9-16) mg/dL Creatinine (0.5-1.4) mg/dL Estim Creat Clear Calc Estimated GFR POC Glucose (60-115) mg/dL Random Glucose (60-115) mg/dL Lactic Acid (0.5-2.0) mmol/L Lactic Acid Fup @ 2Hr (0.5-2.0) mmol/L Lactic Acid Fup @ 4Hr (0.5-2.0) mmol/L Calcium (8.4-10.2) mg/dL Magnesium (1.6-2.6) mg/dL Total Bilirubin (0.0-1.0) mg/dL AST (5-31) U/L ALT (0-31) U/L Alkaline Phosphatase (39-117) U/L Ammonia 23 (13-55) umol/L Total Creatine Kinase (26-140) U/L Troponin I High Sens (<3.5-17.0) ng/L Total Protein (6.5-8.0) g/dL Albumin (3.5-5.0) g/dL Lipase (8-78) U/L Beta HCG, Quant mIU/mL Urine Color YELLOW Urine Appearance CLEAR Urine pH 6.0 (5.0-8.0) Ur Specific [place] >= 1.030 H (1.005-1.025) Urine Protein TRACE (NEG-TRACE) MG/DL Urine Glucose (UA) NEG (NEG) MG/DL Urine Ketones NEG (NEG) MG/DL Urine Blood 1+ H (NEG) Urine Nitrite NEG (NEG) Ur Leukocyte Esterase NEG (NEG) Urine RBC 0-2 (0) /HPF Urine WBC 0 (0-4) /HPF Ur Squamous Epith Cells 1+ /LPF Amorphous Sediment TRACE /LPF Urine Bacteria TRACE /LPF Urine Mucus TRACE /LPF Salicylates (15-30) mg/dL Urine Opiates Screen POSITIVE H (Not Detect) Acetaminophen (<30) mcg/mL Ur Barbiturates Screen Not Detected (Not Detect) Ur Phencyclidine Scrn Not Detected (Not Detect) Ur Amphetamines Screen Not Detected (Not Detect) U Benzodiazepines Scrn Not Detected (Not Detect) Urine Cocaine Screen POSITIVE H (Not Detect) U Marijuana (THC) Screen Not Detected (Not Detect) Ethyl Alcohol mg/dL COVID-19 ([facility]) (Negative) COVID-19 Clin Com 09/19/20 09/19/20 09/19/20 Range/Units 16:53 17:00 17:00 WBC (4.8-10.8) X10*3/uL RBC (4.20-5.50) X10*6/uL Hgb (12.0-16.0) g/dl Hct (37-47) % MCV (80-98) fL MCH (27.0-33.0) pg MCHC (31.0-35.0) g/dl RDW (11.0-16.0) % Plt Count (160-400) X10*3/uL MPV (9.4-12.3) fL Immature Gran % (Auto) (0.0-0.4) % Neut % (Auto) (45-73) % Lymph % (Auto) (20-40) % [place] % (Auto) (2-11) % Eos % (Auto) (0-4) % Baso % (Auto) (0-2) % Lymph # (Auto) (1.2-4.9) X10*3/uL [place] # (Auto) (0.1-1.2) X10*3/uL Eos # (Auto) (0.0-0.4) X10*3/uL Baso # (Auto) (0.0-0.2) X10*3/uL Abs Immat Gran (auto) (0.00-0.03) X10*3/uL Absolute Neuts (auto) (2.0-8.3) X10*3/uL Absolute Nucleated RBC (0.0-0.012) X10*3/uL Nucleated RBC % (auto) (0.0-0.2) /100WBC Smear Tech's Comments Hold Purple Top PT (9.9-13.0) SEC INR (0.9-1.1) VBG pH (7.32-7.43) VBG pCO2 mmHg VBG pO2 mmHg VBG HCO3 (22-26) mmol/L VBG O2 Saturation % VBG Base Excess mmol/L Sodium 141 (135-145) mmol/L Potassium 3.5 (3.3-5.1) mmol/L Chloride 112 H (96-108) mmol/L Carbon Dioxide 13 L (22-29) mmol/L Anion Gap 20 (12-20) BUN 12 (9-16) mg/dL Creatinine 0.83 (0.5-1.4) mg/dL Estim Creat Clear Calc 89.8 Estimated GFR > 60 POC Glucose 86 (60-115) mg/dL Random Glucose 94 (60-115) mg/dL Lactic Acid (0.5-2.0) mmol/L Lactic Acid Fup @ 2Hr 3.1 H* (0.5-2.0) mmol/L Lactic Acid Fup @ 4Hr (0.5-2.0) mmol/L Calcium 8.0 L D (8.4-10.2) mg/dL Magnesium (1.6-2.6) mg/dL Total Bilirubin 0.3 (0.0-1.0) mg/dL AST 103 H (5-31) U/L ALT 29 (0-31) U/L Alkaline Phosphatase 73 (39-117) U/L Ammonia (13-55) umol/L Total Creatine Kinase 51748 H (26-140) U/L Troponin I High Sens (<3.5-17.0) ng/L Total Protein 7.5 (6.5-8.0) g/dL Albumin 4.2 (3.5-5.0) g/dL Lipase (8-78) U/L Beta HCG, Quant mIU/mL Urine Color Urine Appearance Urine pH (5.0-8.0) Ur Specific [place] (1.005-1.025) Urine Protein (NEG-TRACE) MG/DL Urine Glucose (UA) (NEG) MG/DL Urine Ketones (NEG) MG/DL Urine Blood (NEG) Urine Nitrite (NEG) Ur Leukocyte Esterase (NEG) Urine RBC (0) /HPF Urine WBC (0-4) /HPF Ur Squamous Epith Cells /LPF Amorphous Sediment /LPF Urine Bacteria /LPF Urine Mucus /LPF Salicylates < 5.0 L (15-30) mg/dL Urine Opiates Screen (Not Detect) Acetaminophen 16 (<30) mcg/mL Ur Barbiturates Screen (Not Detect) Ur Phencyclidine Scrn (Not Detect) Ur Amphetamines Screen (Not Detect) U Benzodiazepines Scrn (Not Detect) Urine Cocaine Screen (Not Detect) U Marijuana (THC) Screen (Not Detect) Ethyl Alcohol mg/dL COVID-19 ([facility]) (Negative) COVID-19 Clin Com 09/19/20 09/19/20 09/19/20 Range/Units 17:00 17:05 18:04 WBC 17.5 H (4.8-10.8) X10*3/uL RBC 4.04 L (4.20-5.50) X10*6/uL Hgb 12.7 (12.0-16.0) g/dl Hct 36.0 L (37-47) % MCV 89.1 (80-98) fL MCH 31.4 (27.0-33.0) pg MCHC 35.3 H (31.0-35.0) g/dl RDW 12.1 (11.0-16.0) % Plt Count 244 (160-400) X10*3/uL MPV 9.6 (9.4-12.3) fL Immature Gran % (Auto) 0.4 (0.0-0.4) % Neut % (Auto) 91.6 H (45-73) % Lymph % (Auto) 5.6 L (20-40) % [place] % (Auto) 2.2 (2-11) % Eos % (Auto) 0.0 (0-4) % Baso % (Auto) 0.2 (0-2) % Lymph # (Auto) 1.0 L (1.2-4.9) X10*3/uL [place] # (Auto) 0.4 (0.1-1.2) X10*3/uL Eos # (Auto) 0.0 (0.0-0.4) X10*3/uL Baso # (Auto) 0.0 (0.0-0.2) X10*3/uL Abs Immat Gran (auto) 0.07 H (0.00-0.03) X10*3/uL Absolute Neuts (auto) 16.0 H (2.0-8.3) X10*3/uL Absolute Nucleated RBC 0.000 (0.0-0.012) X10*3/uL Nucleated RBC % (auto) 0.0 (0.0-0.2) /100WBC Smear Tech's Comments Hold Purple Top PT (9.9-13.0) SEC INR (0.9-1.1) VBG pH 7.37 (7.32-7.43) VBG pCO2 23 mmHg VBG pO2 110 mmHg VBG HCO3 14 L (22-26) mmol/L VBG O2 Saturation 98.0 % VBG Base Excess -9.2 mmol/L Sodium (135-145) mmol/L Potassium (3.3-5.1) mmol/L Chloride (96-108) mmol/L Carbon Dioxide (22-29) mmol/L Anion Gap (12-20) BUN (9-16) mg/dL Creatinine (0.5-1.4) mg/dL Estim Creat Clear Calc Estimated GFR POC Glucose (60-115) mg/dL Random Glucose (60-115) mg/dL Lactic Acid (0.5-2.0) mmol/L Lactic Acid Fup @ 2Hr (0.5-2.0) mmol/L Lactic Acid Fup @ 4Hr (0.5-2.0) mmol/L Calcium (8.4-10.2) mg/dL Magnesium (1.6-2.6) mg/dL Total Bilirubin (0.0-1.0) mg/dL AST (5-31) U/L ALT (0-31) U/L Alkaline Phosphatase (39-117) U/L Ammonia (13-55) umol/L Total Creatine Kinase (26-140) U/L Troponin I High Sens < 3.5 (<3.5-17.0) ng/L Total Protein (6.5-8.0) g/dL Albumin (3.5-5.0) g/dL Lipase (8-78) U/L Beta HCG, Quant mIU/mL Urine Color Urine Appearance Urine pH (5.0-8.0) Ur Specific [place] (1.005-1.025) Urine Protein (NEG-TRACE) MG/DL Urine Glucose (UA) (NEG) MG/DL Urine Ketones (NEG) MG/DL Urine Blood (NEG) Urine Nitrite (NEG) Ur Leukocyte Esterase (NEG) Urine RBC (0) /HPF Urine WBC (0-4) /HPF Ur Squamous Epith Cells /LPF Amorphous Sediment /LPF Urine Bacteria /LPF Urine Mucus /LPF Salicylates (15-30) mg/dL Urine Opiates Screen (Not Detect) Acetaminophen (<30) mcg/mL Ur Barbiturates Screen (Not Detect) Ur Phencyclidine Scrn (Not Detect) Ur Amphetamines Screen (Not Detect) U Benzodiazepines Scrn (Not Detect) Urine Cocaine Screen (Not Detect) U Marijuana (THC) Screen (Not Detect) Ethyl Alcohol mg/dL COVID-19 ([facility]) (Negative) COVID-19 Clin Com 09/19/20 09/19/20 09/19/20 Range/Units 19:23 19:39 19:39 WBC (4.8-10.8) X10*3/uL RBC (4.20-5.50) X10*6/uL Hgb (12.0-16.0) g/dl Hct (37-47) % MCV (80-98) fL MCH (27.0-33.0) pg MCHC (31.0-35.0) g/dl RDW (11.0-16.0) % Plt Count (160-400) X10*3/uL MPV (9.4-12.3) fL Immature Gran % (Auto) (0.0-0.4) % Neut % (Auto) (45-73) % Lymph % (Auto) (20-40) % [place] % (Auto) (2-11) % Eos % (Auto) (0-4) % Baso % (Auto) (0-2) % Lymph # (Auto) (1.2-4.9) X10*3/uL [place] # (Auto) (0.1-1.2) X10*3/uL Eos # (Auto) (0.0-0.4) X10*3/uL Baso # (Auto) (0.0-0.2) X10*3/uL Abs Immat Gran (auto) (0.00-0.03) X10*3/uL Absolute Neuts (auto) (2.0-8.3) X10*3/uL Absolute Nucleated RBC (0.0-0.012) X10*3/uL Nucleated RBC % (auto) (0.0-0.2) /100WBC Smear Tech's Comments Hold Purple Top PT (9.9-13.0) SEC INR (0.9-1.1) VBG pH (7.32-7.43) VBG pCO2 mmHg VBG pO2 mmHg VBG HCO3 (22-26) mmol/L VBG O2 Saturation % VBG Base Excess mmol/L Sodium 141 (135-145) mmol/L Potassium 3.4 (3.3-5.1) mmol/L Chloride 113 H (96-108) mmol/L Carbon Dioxide 15 L (22-29) mmol/L Anion Gap 16 (12-20) BUN 12 (9-16) mg/dL Creatinine 0.78 (0.5-1.4) mg/dL Estim Creat Clear Calc 95.5 Estimated GFR > 60 POC Glucose 97 (60-115) mg/dL Random Glucose 103 (60-115) mg/dL Lactic Acid (0.5-2.0) mmol/L Lactic Acid Fup @ 2Hr (0.5-2.0) mmol/L Lactic Acid Fup @ 4Hr 1.6 (0.5-2.0) mmol/L Calcium 7.7 L (8.4-10.2) mg/dL Magnesium (1.6-2.6) mg/dL Total Bilirubin (0.0-1.0) mg/dL AST (5-31) U/L ALT (0-31) U/L Alkaline Phosphatase (39-117) U/L Ammonia (13-55) umol/L Total Creatine Kinase 28109 H (26-140) U/L Troponin I High Sens (<3.5-17.0) ng/L Total Protein (6.5-8.0) g/dL Albumin (3.5-5.0) g/dL Lipase (8-78) U/L Beta HCG, Quant mIU/mL Urine Color Urine Appearance Urine pH (5.0-8.0) Ur Specific [place] (1.005-1.025) Urine Protein (NEG-TRACE) MG/DL Urine Glucose (UA) (NEG) MG/DL Urine Ketones (NEG) MG/DL Urine Blood (NEG) Urine Nitrite (NEG) Ur Leukocyte Esterase (NEG) Urine RBC (0) /HPF Urine WBC (0-4) /HPF Ur Squamous Epith Cells /LPF Amorphous Sediment /LPF Urine Bacteria /LPF Urine Mucus /LPF Salicylates (15-30) mg/dL Urine Opiates Screen (Not Detect) Acetaminophen (<30) mcg/mL Ur Barbiturates Screen (Not Detect) Ur Phencyclidine Scrn (Not Detect) Ur Amphetamines Screen (Not Detect) U Benzodiazepines Scrn (Not Detect) Urine Cocaine Screen (Not Detect) U Marijuana (THC) Screen (Not Detect) Ethyl Alcohol mg/dL COVID-19 ([facility]) (Negative) COVID-19 Clin Com <YESSICA Hall - Last Filed: 09/19/20 17:49> Lab Results 09/19/20 09/19/20 09/19/20 Range/Units 00:00 14:09 14:09 WBC 18.6 H (4.8-10.8) X10*3/uL RBC 4.49 (4.20-5.50) X10*6/uL Hgb 13.9 (12.0-16.0) g/dl Hct 40.6 (37-47) % MCV 90.4 (80-98) fL MCH 31.0 (27.0-33.0) pg MCHC 34.2 (31.0-35.0) g/dl RDW 12.1 (11.0-16.0) % Plt Count 262 (160-400) X10*3/uL MPV 9.5 (9.4-12.3) fL Immature Gran % (Auto) 0.4 (0.0-0.4) % Neut % (Auto) 93.2 H (45-73) % Lymph % (Auto) 3.8 L (20-40) % [place] % (Auto) 2.4 (2-11) % Eos % (Auto) 0.0 (0-4) % Baso % (Auto) 0.2 (0-2) % Lymph # (Auto) 0.7 L (1.2-4.9) X10*3/uL [place] # (Auto) 0.5 (0.1-1.2) X10*3/uL Eos # (Auto) 0.0 (0.0-0.4) X10*3/uL Baso # (Auto) 0.0 (0.0-0.2) X10*3/uL Abs Immat Gran (auto) 0.07 H (0.00-0.03) X10*3/uL Absolute Neuts (auto) 17.3 H (2.0-8.3) X10*3/uL Absolute Nucleated RBC 0.000 (0.0-0.012) X10*3/uL Nucleated RBC % (auto) 0.0 (0.0-0.2) /100WBC Smear Tech's Comments VERIFIED Hold Purple Top PT 12.8 (9.9-13.0) SEC INR 1.1 (0.9-1.1) VBG pH (7.32-7.43) VBG pCO2 mmHg VBG pO2 mmHg VBG HCO3 (22-26) mmol/L VBG O2 Saturation % VBG Base Excess mmol/L Sodium (135-145) mmol/L Potassium (3.3-5.1) mmol/L Chloride (96-108) mmol/L Carbon Dioxide (22-29) mmol/L Anion Gap (12-20) BUN (9-16) mg/dL Creatinine (0.5-1.4) mg/dL Estim Creat Clear Calc Estimated GFR POC Glucose (60-115) mg/dL Random Glucose (60-115) mg/dL Lactic Acid (0.5-2.0) mmol/L Lactic Acid Fup @ 2Hr (0.5-2.0) mmol/L Lactic Acid Fup @ 4Hr (0.5-2.0) mmol/L Calcium (8.4-10.2) mg/dL Magnesium (1.6-2.6) mg/dL Total Bilirubin (0.0-1.0) mg/dL AST (5-31) U/L ALT (0-31) U/L Alkaline Phosphatase (39-117) U/L Ammonia (13-55) umol/L Total Creatine Kinase (26-140) U/L Troponin I High Sens (<3.5-17.0) ng/L Total Protein (6.5-8.0) g/dL Albumin (3.5-5.0) g/dL Lipase (8-78) U/L Beta HCG, Quant mIU/mL Urine Color Urine Appearance Urine pH (5.0-8.0) Ur Specific [place] (1.005-1.025) Urine Protein (NEG-TRACE) MG/DL Urine Glucose (UA) (NEG) MG/DL Urine Ketones (NEG) MG/DL Urine Blood (NEG) Urine Nitrite (NEG) Ur Leukocyte Esterase (NEG) Urine RBC (0) /HPF Urine WBC (0-4) /HPF Ur Squamous Epith Cells /LPF Amorphous Sediment /LPF Urine Bacteria /LPF Urine Mucus /LPF Salicylates (15-30) mg/dL Urine Opiates Screen (Not Detect) Acetaminophen (<30) mcg/mL Ur Barbiturates Screen (Not Detect) Ur Phencyclidine Scrn (Not Detect) Ur Amphetamines Screen (Not Detect) U Benzodiazepines Scrn (Not Detect) Urine Cocaine Screen (Not Detect) U Marijuana (THC) Screen (Not Detect) Ethyl Alcohol mg/dL COVID-19 ([facility]) Negative (Negative) COVID-19 Clin Com See Note 09/19/20 09/19/20 09/19/20 Range/Units 14:09 14:09 14:09 WBC (4.8-10.8) X10*3/uL RBC (4.20-5.50) X10*6/uL Hgb (12.0-16.0) g/dl Hct (37-47) % MCV (80-98) fL MCH (27.0-33.0) pg MCHC (31.0-35.0) g/dl RDW (11.0-16.0) % Plt Count (160-400) X10*3/uL MPV (9.4-12.3) fL Immature Gran % (Auto) (0.0-0.4) % Neut % (Auto) (45-73) % Lymph % (Auto) (20-40) % [place] % (Auto) (2-11) % Eos % (Auto) (0-4) % Baso % (Auto) (0-2) % Lymph # (Auto) (1.2-4.9) X10*3/uL [place] # (Auto) (0.1-1.2) X10*3/uL Eos # (Auto) (0.0-0.4) X10*3/uL Baso # (Auto) (0.0-0.2) X10*3/uL Abs Immat Gran (auto) (0.00-0.03) X10*3/uL Absolute Neuts (auto) (2.0-8.3) X10*3/uL Absolute Nucleated RBC (0.0-0.012) X10*3/uL Nucleated RBC % (auto) (0.0-0.2) /100WBC Smear Tech's Comments Hold Purple Top SEE NOTE PT (9.9-13.0) SEC INR (0.9-1.1) VBG pH (7.32-7.43) VBG pCO2 mmHg VBG pO2 mmHg VBG HCO3 (22-26) mmol/L VBG O2 Saturation % VBG Base Excess mmol/L Sodium 139 (135-145) mmol/L Potassium 3.3 D (3.3-5.1) mmol/L Chloride 101 (96-108) mmol/L Carbon Dioxide 19 L (22-29) mmol/L Anion Gap 22 H (12-20) BUN 13 (9-16) mg/dL Creatinine 0.95 (0.5-1.4) mg/dL Estim Creat Clear Calc 78.5 Estimated GFR > 60 POC Glucose (60-115) mg/dL Random Glucose 73 (60-115) mg/dL Lactic Acid (0.5-2.0) mmol/L Lactic Acid Fup @ 2Hr (0.5-2.0) mmol/L Lactic Acid Fup @ 4Hr (0.5-2.0) mmol/L Calcium 9.1 (8.4-10.2) mg/dL Magnesium 2.6 (1.6-2.6) mg/dL Total Bilirubin 0.2 (0.0-1.0) mg/dL AST 82 H (5-31) U/L ALT 30 (0-31) U/L Alkaline Phosphatase 88 (39-117) U/L Ammonia (13-55) umol/L Total Creatine Kinase (26-140) U/L Troponin I High Sens (<3.5-17.0) ng/L Total Protein 8.9 H (6.5-8.0) g/dL Albumin 5.0 (3.5-5.0) g/dL Lipase 26 (8-78) U/L Beta HCG, Quant < 2 mIU/mL Urine Color Urine Appearance Urine pH (5.0-8.0) Ur Specific [place] (1.005-1.025) Urine Protein (NEG-TRACE) MG/DL Urine Glucose (UA) (NEG) MG/DL Urine Ketones (NEG) MG/DL Urine Blood (NEG) Urine Nitrite (NEG) Ur Leukocyte Esterase (NEG) Urine RBC (0) /HPF Urine WBC (0-4) /HPF Ur Squamous Epith Cells /LPF Amorphous Sediment /LPF Urine Bacteria /LPF Urine Mucus /LPF Salicylates (15-30) mg/dL Urine Opiates Screen (Not Detect) Acetaminophen (<30) mcg/mL Ur Barbiturates Screen (Not Detect) Ur Phencyclidine Scrn (Not Detect) Ur Amphetamines Screen (Not Detect) U Benzodiazepines Scrn (Not Detect) Urine Cocaine Screen (Not Detect) U Marijuana (THC) Screen (Not Detect) Ethyl Alcohol mg/dL COVID-19 ([facility]) (Negative) COVID-19 Clin Com 09/19/20 09/19/20 09/19/20 Range/Units 14:09 14:09 14:10 WBC (4.8-10.8) X10*3/uL RBC (4.20-5.50) X10*6/uL Hgb (12.0-16.0) g/dl Hct (37-47) % MCV (80-98) fL MCH (27.0-33.0) pg MCHC (31.0-35.0) g/dl RDW (11.0-16.0) % Plt Count (160-400) X10*3/uL MPV (9.4-12.3) fL Immature Gran % (Auto) (0.0-0.4) % Neut % (Auto) (45-73) % Lymph % (Auto) (20-40) % [place] % (Auto) (2-11) % Eos % (Auto) (0-4) % Baso % (Auto) (0-2) % Lymph # (Auto) (1.2-4.9) X10*3/uL [place] # (Auto) (0.1-1.2) X10*3/uL Eos # (Auto) (0.0-0.4) X10*3/uL Baso # (Auto) (0.0-0.2) X10*3/uL Abs Immat Gran (auto) (0.00-0.03) X10*3/uL Absolute Neuts (auto) (2.0-8.3) X10*3/uL Absolute Nucleated RBC (0.0-0.012) X10*3/uL Nucleated RBC % (auto) (0.0-0.2) /100WBC Smear Tech's Comments Hold Purple Top PT (9.9-13.0) SEC INR (0.9-1.1) VBG pH (7.32-7.43) VBG pCO2 mmHg VBG pO2 mmHg VBG HCO3 (22-26) mmol/L VBG O2 Saturation % VBG Base Excess mmol/L Sodium (135-145) mmol/L Potassium (3.3-5.1) mmol/L Chloride (96-108) mmol/L Carbon Dioxide (22-29) mmol/L Anion Gap (12-20) BUN (9-16) mg/dL Creatinine (0.5-1.4) mg/dL Estim Creat Clear Calc Estimated GFR POC Glucose (60-115) mg/dL Random Glucose (60-115) mg/dL Lactic Acid 3.4 H* (0.5-2.0) mmol/L Lactic Acid Fup @ 2Hr (0.5-2.0) mmol/L Lactic Acid Fup @ 4Hr (0.5-2.0) mmol/L Calcium (8.4-10.2) mg/dL Magnesium (1.6-2.6) mg/dL Total Bilirubin (0.0-1.0) mg/dL AST (5-31) U/L ALT (0-31) U/L Alkaline Phosphatase (39-117) U/L Ammonia (13-55) umol/L Total Creatine Kinase (26-140) U/L Troponin I High Sens (<3.5-17.0) ng/L Total Protein (6.5-8.0) g/dL Albumin (3.5-5.0) g/dL Lipase (8-78) U/L Beta HCG, Quant mIU/mL Urine Color Urine Appearance Urine pH (5.0-8.0) Ur Specific [place] (1.005-1.025) Urine Protein (NEG-TRACE) MG/DL Urine Glucose (UA) (NEG) MG/DL Urine Ketones (NEG) MG/DL Urine Blood (NEG) Urine Nitrite (NEG) Ur Leukocyte Esterase (NEG) Urine RBC (0) /HPF Urine WBC (0-4) /HPF Ur Squamous Epith Cells /LPF Amorphous Sediment /LPF Urine Bacteria /LPF Urine Mucus /LPF Salicylates < 5.0 L (15-30) mg/dL Urine Opiates Screen (Not Detect) Acetaminophen 23 (<30) mcg/mL Ur Barbiturates Screen (Not Detect) Ur Phencyclidine Scrn (Not Detect) Ur Amphetamines Screen (Not Detect) U Benzodiazepines Scrn (Not Detect) Urine Cocaine Screen (Not Detect) U Marijuana (THC) Screen (Not Detect) Ethyl Alcohol < 10 mg/dL COVID-19 ([facility]) (Negative) COVID-19 Clin Com 09/19/20 09/19/20 09/19/20 Range/Units 14:10 15:47 15:47 WBC (4.8-10.8) X10*3/uL RBC (4.20-5.50) X10*6/uL Hgb (12.0-16.0) g/dl Hct (37-47) % MCV (80-98) fL MCH (27.0-33.0) pg MCHC (31.0-35.0) g/dl RDW (11.0-16.0) % Plt Count (160-400) X10*3/uL MPV (9.4-12.3) fL Immature Gran % (Auto) (0.0-0.4) % Neut % (Auto) (45-73) % Lymph % (Auto) (20-40) % [place] % (Auto) (2-11) % Eos % (Auto) (0-4) % Baso % (Auto) (0-2) % Lymph # (Auto) (1.2-4.9) X10*3/uL [place] # (Auto) (0.1-1.2) X10*3/uL Eos # (Auto) (0.0-0.4) X10*3/uL Baso # (Auto) (0.0-0.2) X10*3/uL Abs Immat Gran (auto) (0.00-0.03) X10*3/uL Absolute Neuts (auto) (2.0-8.3) X10*3/uL Absolute Nucleated RBC (0.0-0.012) X10*3/uL Nucleated RBC % (auto) (0.0-0.2) /100WBC Smear Tech's Comments Hold Purple Top PT (9.9-13.0) SEC INR (0.9-1.1) VBG pH (7.32-7.43) VBG pCO2 mmHg VBG pO2 mmHg VBG HCO3 (22-26) mmol/L VBG O2 Saturation % VBG Base Excess mmol/L Sodium (135-145) mmol/L Potassium (3.3-5.1) mmol/L Chloride (96-108) mmol/L Carbon Dioxide (22-29) mmol/L Anion Gap (12-20) BUN (9-16) mg/dL Creatinine (0.5-1.4) mg/dL Estim Creat Clear Calc Estimated GFR POC Glucose (60-115) mg/dL Random Glucose (60-115) mg/dL Lactic Acid (0.5-2.0) mmol/L Lactic Acid Fup @ 2Hr (0.5-2.0) mmol/L Lactic Acid Fup @ 4Hr (0.5-2.0) mmol/L Calcium (8.4-10.2) mg/dL Magnesium (1.6-2.6) mg/dL Total Bilirubin (0.0-1.0) mg/dL AST (5-31) U/L ALT (0-31) U/L Alkaline Phosphatase (39-117) U/L Ammonia 23 (13-55) umol/L Total Creatine Kinase (26-140) U/L Troponin I High Sens (<3.5-17.0) ng/L Total Protein (6.5-8.0) g/dL Albumin (3.5-5.0) g/dL Lipase (8-78) U/L Beta HCG, Quant mIU/mL Urine Color YELLOW Urine Appearance CLEAR Urine pH 6.0 (5.0-8.0) Ur Specific [place] >= 1.030 H (1.005-1.025) Urine Protein TRACE (NEG-TRACE) MG/DL Urine Glucose (UA) NEG (NEG) MG/DL Urine Ketones NEG (NEG) MG/DL Urine Blood 1+ H (NEG) Urine Nitrite NEG (NEG) Ur Leukocyte Esterase NEG (NEG) Urine RBC 0-2 (0) /HPF Urine WBC 0 (0-4) /HPF Ur Squamous Epith Cells 1+ /LPF Amorphous Sediment TRACE /LPF Urine Bacteria TRACE /LPF Urine Mucus TRACE /LPF Salicylates (15-30) mg/dL Urine Opiates Screen POSITIVE H (Not Detect) Acetaminophen (<30) mcg/mL Ur Barbiturates Screen Not Detected (Not Detect) Ur Phencyclidine Scrn Not Detected (Not Detect) Ur Amphetamines Screen Not Detected (Not Detect) U Benzodiazepines Scrn Not Detected (Not Detect) Urine Cocaine Screen POSITIVE H (Not Detect) U Marijuana (THC) Screen Not Detected (Not Detect) Ethyl Alcohol mg/dL COVID-19 ([facility]) (Negative) COVID-19 Clin Com 09/19/20 09/19/20 09/19/20 Range/Units 16:53 17:00 17:00 WBC (4.8-10.8) X10*3/uL RBC (4.20-5.50) X10*6/uL Hgb (12.0-16.0) g/dl Hct (37-47) % MCV (80-98) fL MCH (27.0-33.0) pg MCHC (31.0-35.0) g/dl RDW (11.0-16.0) % Plt Count (160-400) X10*3/uL MPV (9.4-12.3) fL Immature Gran % (Auto) (0.0-0.4) % Neut % (Auto) (45-73) % Lymph % (Auto) (20-40) % [place] % (Auto) (2-11) % Eos % (Auto) (0-4) % Baso % (Auto) (0-2) % Lymph # (Auto) (1.2-4.9) X10*3/uL [place] # (Auto) (0.1-1.2) X10*3/uL Eos # (Auto) (0.0-0.4) X10*3/uL Baso # (Auto) (0.0-0.2) X10*3/uL Abs Immat Gran (auto) (0.00-0.03) X10*3/uL Absolute Neuts (auto) (2.0-8.3) X10*3/uL Absolute Nucleated RBC (0.0-0.012) X10*3/uL Nucleated RBC % (auto) (0.0-0.2) /100WBC Smear Tech's Comments Hold Purple Top PT (9.9-13.0) SEC INR (0.9-1.1) VBG pH (7.32-7.43) VBG pCO2 mmHg VBG pO2 mmHg VBG HCO3 (22-26) mmol/L VBG O2 Saturation % VBG Base Excess mmol/L Sodium 141 (135-145) mmol/L Potassium 3.5 (3.3-5.1) mmol/L Chloride 112 H (96-108) mmol/L Carbon Dioxide 13 L (22-29) mmol/L Anion Gap 20 (12-20) BUN 12 (9-16) mg/dL Creatinine 0.83 (0.5-1.4) mg/dL Estim Creat Clear Calc 89.8 Estimated GFR > 60 POC Glucose 86 (60-115) mg/dL Random Glucose 94 (60-115) mg/dL Lactic Acid (0.5-2.0) mmol/L Lactic Acid Fup @ 2Hr 3.1 H* (0.5-2.0) mmol/L Lactic Acid Fup @ 4Hr (0.5-2.0) mmol/L Calcium 8.0 L D (8.4-10.2) mg/dL Magnesium (1.6-2.6) mg/dL Total Bilirubin 0.3 (0.0-1.0) mg/dL AST 103 H (5-31) U/L ALT 29 (0-31) U/L Alkaline Phosphatase 73 (39-117) U/L Ammonia (13-55) umol/L Total Creatine Kinase 75958 H (26-140) U/L Troponin I High Sens (<3.5-17.0) ng/L Total Protein 7.5 (6.5-8.0) g/dL Albumin 4.2 (3.5-5.0) g/dL Lipase (8-78) U/L Beta HCG, Quant mIU/mL Urine Color Urine Appearance Urine pH (5.0-8.0) Ur Specific [place] (1.005-1.025) Urine Protein (NEG-TRACE) MG/DL Urine Glucose (UA) (NEG) MG/DL Urine Ketones (NEG) MG/DL Urine Blood (NEG) Urine Nitrite (NEG) Ur Leukocyte Esterase (NEG) Urine RBC (0) /HPF Urine WBC (0-4) /HPF Ur Squamous Epith Cells /LPF Amorphous Sediment /LPF Urine Bacteria /LPF Urine Mucus /LPF Salicylates < 5.0 L (15-30) mg/dL Urine Opiates Screen (Not Detect) Acetaminophen 16 (<30) mcg/mL Ur Barbiturates Screen (Not Detect) Ur Phencyclidine Scrn (Not Detect) Ur Amphetamines Screen (Not Detect) U Benzodiazepines Scrn (Not Detect) Urine Cocaine Screen (Not Detect) U Marijuana (THC) Screen (Not Detect) Ethyl Alcohol mg/dL COVID-19 ([facility]) (Negative) COVID-19 Clin Com 09/19/20 09/19/20 09/19/20 Range/Units 17:00 17:05 18:04 WBC 17.5 H (4.8-10.8) X10*3/uL RBC 4.04 L (4.20-5.50) X10*6/uL Hgb 12.7 (12.0-16.0) g/dl Hct 36.0 L (37-47) % MCV 89.1 (80-98) fL MCH 31.4 (27.0-33.0) pg MCHC 35.3 H (31.0-35.0) g/dl RDW 12.1 (11.0-16.0) % Plt Count 244 (160-400) X10*3/uL MPV 9.6 (9.4-12.3) fL Immature Gran % (Auto) 0.4 (0.0-0.4) % Neut % (Auto) 91.6 H (45-73) % Lymph % (Auto) 5.6 L (20-40) % [place] % (Auto) 2.2 (2-11) % Eos % (Auto) 0.0 (0-4) % Baso % (Auto) 0.2 (0-2) % Lymph # (Auto) 1.0 L (1.2-4.9) X10*3/uL [place] # (Auto) 0.4 (0.1-1.2) X10*3/uL Eos # (Auto) 0.0 (0.0-0.4) X10*3/uL Baso # (Auto) 0.0 (0.0-0.2) X10*3/uL Abs Immat Gran (auto) 0.07 H (0.00-0.03) X10*3/uL Absolute Neuts (auto) 16.0 H (2.0-8.3) X10*3/uL Absolute Nucleated RBC 0.000 (0.0-0.012) X10*3/uL Nucleated RBC % (auto) 0.0 (0.0-0.2) /100WBC Smear Tech's Comments Hold Purple Top PT (9.9-13.0) SEC INR (0.9-1.1) VBG pH 7.37 (7.32-7.43) VBG pCO2 23 mmHg VBG pO2 110 mmHg VBG HCO3 14 L (22-26) mmol/L VBG O2 Saturation 98.0 % VBG Base Excess -9.2 mmol/L Sodium (135-145) mmol/L Potassium (3.3-5.1) mmol/L Chloride (96-108) mmol/L Carbon Dioxide (22-29) mmol/L Anion Gap (12-20) BUN (9-16) mg/dL Creatinine (0.5-1.4) mg/dL Estim Creat Clear Calc Estimated GFR POC Glucose (60-115) mg/dL Random Glucose (60-115) mg/dL Lactic Acid (0.5-2.0) mmol/L Lactic Acid Fup @ 2Hr (0.5-2.0) mmol/L Lactic Acid Fup @ 4Hr (0.5-2.0) mmol/L Calcium (8.4-10.2) mg/dL Magnesium (1.6-2.6) mg/dL Total Bilirubin (0.0-1.0) mg/dL AST (5-31) U/L ALT (0-31) U/L Alkaline Phosphatase (39-117) U/L Ammonia (13-55) umol/L Total Creatine Kinase (26-140) U/L Troponin I High Sens < 3.5 (<3.5-17.0) ng/L Total Protein (6.5-8.0) g/dL Albumin (3.5-5.0) g/dL Lipase (8-78) U/L Beta HCG, Quant mIU/mL Urine Color Urine Appearance Urine pH (5.0-8.0) Ur Specific [place] (1.005-1.025) Urine Protein (NEG-TRACE) MG/DL Urine Glucose (UA) (NEG) MG/DL Urine Ketones (NEG) MG/DL Urine Blood (NEG) Urine Nitrite (NEG) Ur Leukocyte Esterase (NEG) Urine RBC (0) /HPF Urine WBC (0-4) /HPF Ur Squamous Epith Cells /LPF Amorphous Sediment /LPF Urine Bacteria /LPF Urine Mucus /LPF Salicylates (15-30) mg/dL Urine Opiates Screen (Not Detect) Acetaminophen (<30) mcg/mL Ur Barbiturates Screen (Not Detect) Ur Phencyclidine Scrn (Not Detect) Ur Amphetamines Screen (Not Detect) U Benzodiazepines Scrn (Not Detect) Urine Cocaine Screen (Not Detect) U Marijuana (THC) Screen (Not Detect) Ethyl Alcohol mg/dL COVID-19 ([facility]) (Negative) COVID-19 Clin Com 09/19/20 09/19/20 09/19/20 Range/Units 19:23 19:39 19:39 WBC (4.8-10.8) X10*3/uL RBC (4.20-5.50) X10*6/uL Hgb (12.0-16.0) g/dl Hct (37-47) % MCV (80-98) fL MCH (27.0-33.0) pg MCHC (31.0-35.0) g/dl RDW (11.0-16.0) % Plt Count (160-400) X10*3/uL MPV (9.4-12.3) fL Immature Gran % (Auto) (0.0-0.4) % Neut % (Auto) (45-73) % Lymph % (Auto) (20-40) % [place] % (Auto) (2-11) % Eos % (Auto) (0-4) % Baso % (Auto) (0-2) % Lymph # (Auto) (1.2-4.9) X10*3/uL [place] # (Auto) (0.1-1.2) X10*3/uL Eos # (Auto) (0.0-0.4) X10*3/uL Baso # (Auto) (0.0-0.2) X10*3/uL Abs Immat Gran (auto) (0.00-0.03) X10*3/uL Absolute Neuts (auto) (2.0-8.3) X10*3/uL Absolute Nucleated RBC (0.0-0.012) X10*3/uL Nucleated RBC % (auto) (0.0-0.2) /100WBC Smear Tech's Comments Hold Purple Top PT (9.9-13.0) SEC INR (0.9-1.1) VBG pH (7.32-7.43) VBG pCO2 mmHg VBG pO2 mmHg VBG HCO3 (22-26) mmol/L VBG O2 Saturation % VBG Base Excess mmol/L Sodium 141 (135-145) mmol/L Potassium 3.4 (3.3-5.1) mmol/L Chloride 113 H (96-108) mmol/L Carbon Dioxide 15 L (22-29) mmol/L Anion Gap 16 (12-20) BUN 12 (9-16) mg/dL Creatinine 0.78 (0.5-1.4) mg/dL Estim Creat Clear Calc 95.5 Estimated GFR > 60 POC Glucose 97 (60-115) mg/dL Random Glucose 103 (60-115) mg/dL Lactic Acid (0.5-2.0) mmol/L Lactic Acid Fup @ 2Hr (0.5-2.0) mmol/L Lactic Acid Fup @ 4Hr 1.6 (0.5-2.0) mmol/L Calcium 7.7 L (8.4-10.2) mg/dL Magnesium (1.6-2.6) mg/dL Total Bilirubin (0.0-1.0) mg/dL AST (5-31) U/L ALT (0-31) U/L Alkaline Phosphatase (39-117) U/L Ammonia (13-55) umol/L Total Creatine Kinase 04462 H (26-140) U/L Troponin I High Sens (<3.5-17.0) ng/L Total Protein (6.5-8.0) g/dL Albumin (3.5-5.0) g/dL Lipase (8-78) U/L Beta HCG, Quant mIU/mL Urine Color Urine Appearance Urine pH (5.0-8.0) Ur Specific [place] (1.005-1.025) Urine Protein (NEG-TRACE) MG/DL Urine Glucose (UA) (NEG) MG/DL Urine Ketones (NEG) MG/DL Urine Blood (NEG) Urine Nitrite (NEG) Ur Leukocyte Esterase (NEG) Urine RBC (0) /HPF Urine WBC (0-4) /HPF Ur Squamous Epith Cells /LPF Amorphous Sediment /LPF Urine Bacteria /LPF Urine Mucus /LPF Salicylates (15-30) mg/dL Urine Opiates Screen (Not Detect) Acetaminophen (<30) mcg/mL Ur Barbiturates Screen (Not Detect) Ur Phencyclidine Scrn (Not Detect) Ur Amphetamines Screen (Not Detect) U Benzodiazepines Scrn (Not Detect) Urine Cocaine Screen (Not Detect) U Marijuana (THC) Screen (Not Detect) Ethyl Alcohol mg/dL COVID-19 ([facility]) (Negative) COVID-19 Clin Com <John Durham MD - Last Filed: 09/19/20 20:54> ECG Data ECG #1: Attestation: I personally reviewed and interpreted this ECG as follows: <YESSICA Hall - Last Filed: 09/19/20 17:49> ECG interpretation date: 09/19/20 <YESSICA Hall - Last Filed: 09/19/20 17:49> ECG interpretation time: 17:14 <YESSICA Hall - Last Filed: 09/19/20 17:49> Interpretation: Sinus tachycardia with left axis deviation with incomplete right bundle angel block no acute ischemic changes noted. <YESSICA Hall - Last Filed: 09/19/20 17:49> Critical Care Time Critical Care Time Critical Care Time: Yes <YESSICA Hall - Last Filed: 09/19/20 17:49> Total Critical Care Time: 60 <YESSICA Hall - Last Filed: 09/19/20 17:49> Attestation: I personally attest to this time spent taking care of the patient <YESSICA Hall - Last Filed: 09/19/20 17:49> Discharge Plan Discharge Clinical Impression: Substance abuse, Altered mental status, Cellulitis <YESSICA Hall - Last Filed: 09/19/20 17:49> Prescriptions: No Action mupirocin 2 % ointment 1 appl topical BID Qty: 15 RF: 0 doxycycline hyclate 100 mg capsule 100 mg PO BID 7 Days Qty: 14 RF: 0 cephalexin 500 mg capsule 500 mg PO BID 7 Days Qty: 14 RF: 0 mupirocin 2 % ointment 1 appl topical BID 7 Days Qty: 15 RF: 0 buprenorphine-naloxone [Suboxone] 8-2 mg film 1 film sublingual DAILY Qty: 7 RF: 0 metronidazole 0.75 % gel 1 appful vaginal DAILY 5 Days Qty: 70 RF: 0 <YESSICA Hall - Last Filed: 09/19/20 17:49>
[2020-09-19] MEDS: 0.9 % Sodium Chloride 1,000 ML 999 ML IVCONT ×2 (14:13→19:30)
[2020-09-19 14:17] LABS: Basophils Percent Auto 0.2 % (0-2); Hematocrit 40.6 % (37-47); Hemoglobin 13.9 g/dl (12.0-16.0); Imm Gran Abs Auto 0.07 X10*3/uL (0.00-0.03); Imm Gran Pct Auto 0.4 % (0.0-0.4); Lymphocytes Absolute Auto 0.7 X10*3/uL (1.2-4.9); Lymphocytes Percent Auto 3.8 % (20-40); MANUAL DIFF FLAG SCAN; Mean Corpuscular HGB Conc 34.2 g/dl (31.0-35.0); Mean Corpuscular Volume 90.4 fL (80-98); Mean Platelet Volume 9.5 fL (9.4-12.3); Monocytes Absolute Auto 0.5 X10*3/uL (0.1-1.2); Monocytes Percent Auto 2.4 % (2-11); Neutrophils Absolute Auto 17.3 X10*3/uL (2.0-8.3); Neutrophils Percent Auto 93.2 % (45-73); Platelet Count 262 X10*3/uL (160-400); Red Blood Count 4.49 X10*6/uL (4.20-5.50); Red Cell Distribution Width 12.1 % (11.0-16.0); SCAN SMEAR FLAG 1; White Blood Count 18.6 X10*3/uL (4.8-10.8)
[2020-09-19 14:28] LABS: INTERNATIONAL NORM RATIO 1.1 (0.9-1.1); Prothrombin Time 12.8 SEC (9.9-13.0)
[2020-09-19 14:38] LABS: Ammonia 23 umol/L (13-55)
[2020-09-19 14:45] LABS: SLIDE REVIEW VERIFIED
[2020-09-19 14:46] LABS: Ethanol < 10 mg/dL
[2020-09-19 14:47] LABS: Lactic Acid 3.4 mmol/L (0.5-2.0)
[2020-09-19 14:48] LABS: Magnesium 2.6 mg/dL (1.6-2.6)
[2020-09-19 14:50] LABS: Acetaminophen LAB 23 mcg/mL (<30); Salicylate < 5.0 mg/dL (15-30)
[2020-09-19 14:53] LABS: Alanine Aminotransferase 30 U/L (0-31); Alkaline Phosphatase 88 U/L (39-117); Anion Gap 22 (12-20); Aspartate Amino Transferase 82 U/L (5-31); Bilirubin Total 0.2 mg/dL (0.0-1.0); Blood Urea Nitrogen 13 mg/dL (9-16); Calcium 9.1 mg/dL (8.4-10.2); Carbon Dioxide 19 mmol/L (22-29); Chloride 101 mmol/L (96-108); Creatinine Clr Calc Pharmacy 78.5; Estimated Glomerular Filt Rate > 60; Glucose Random 73 mg/dL (60-115); Lipase 26 U/L (8-78); Potassium 3.3 mmol/L (3.3-5.1); Sodium 139 mmol/L (135-145); Total Protein 8.9 g/dL (6.5-8.0)
[2020-09-19 14:59] LABS: HCG Quantitative < 2 mIU/mL
[2020-09-19] MEDS: LORazepam 2 MG/ML VIAL IM (15:05)
[2020-09-19] MEDS: Haloperidol Lactate 5 MG/ML VIAL IM (15:05)
--- NOTE | 2020-09-19 15:05 | PC.NURSE ---
Patient is awake, occasionally yelling out, thrashing around in the bed. patient was just placed on bedpan by staff then once staff left the room patient attempted to jump out of bed landing on chair next to bed, physician aware.
[2020-09-19] MEDS: cefTRIAXone sodium 2 GM in 0.9 % Sodium Chloride 50 ML IV (16:00)
[2020-09-19] MEDS: OLANZapine 10 MG VIAL IM (16:03)
[2020-09-19 16:11] LABS: Glucose Urine UA NEG (NEG); Leukocyte Esterase Urine NEG (NEG); Nitrite Urine NEG (NEG); Specific Gravity - Urine >= 1.030 (1.005-1.025); Urine Blood 1+ (NEG); Urine Ketones NEG (NEG); Urine Protein TRACE MG/DL (NEG-TRACE)
[2020-09-19 16:12] LABS: Appearance Urine CLEAR; Color Urine YELLOW
[2020-09-19 16:13] LABS: Reflex Lactate? Lactic Acid Added
[2020-09-19 16:21] LABS: Amorphous Sediment Urine TRACE /LPF; Bacteria Urine TRACE /LPF; Mucus Urine TRACE /LPF; RBC Urine 0-2 /HPF (0); Squamous Epithelial Cell Urine 1+ /LPF; WBC Urine 0 /HPF (0-4)
[2020-09-19 16:33] LABS: Amphetamine Screen Urine Not Detected (Not Detect); Barbiturates, Urine Not Detected (Not Detect); Benzodiazepines Screen Urine Not Detected (Not Detect); Cannabinoid Screen Urine Not Detected (Not Detect); Cocaine Screen Urine POSITIVE (Not Detect); Opiate Screen Urine POSITIVE (Not Detect); Phencyclidine Screen Urine Not Detected (Not Detect)
[2020-09-19 16:57] LABS: COVID-19 Test Negative (Negative)
[2020-09-19] MEDS: LORazepam 2 MG/ML VIAL IVPUSH ×2 (17:07→17:18)
[2020-09-19 17:10] LABS: Basophils Percent Auto 0.2 % (0-2); Hemoglobin 12.7 g/dl (12.0-16.0); Imm Gran Abs Auto 0.07 X10*3/uL (0.00-0.03); Imm Gran Pct Auto 0.4 % (0.0-0.4); Lymphocytes Percent Auto 5.6 % (20-40); MANUAL DIFF FLAG SCAN; Mean Corpuscular HGB Conc 35.3 g/dl (31.0-35.0); Mean Corpuscular Hemoglobin 31.4 pg (27.0-33.0); Mean Corpuscular Volume 89.1 fL (80-98); Mean Platelet Volume 9.6 fL (9.4-12.3); Monocytes Absolute Auto 0.4 X10*3/uL (0.1-1.2); Monocytes Percent Auto 2.2 % (2-11); Neutrophils Percent Auto 91.6 % (45-73); Platelet Count 244 X10*3/uL (160-400); Red Blood Count 4.04 X10*6/uL (4.20-5.50); Red Cell Distribution Width 12.1 % (11.0-16.0); SCAN SMEAR FLAG 1; White Blood Count 17.5 X10*3/uL (4.8-10.8)
[2020-09-19 17:17] LABS: Glucose, Whole Blood 86 mg/dL (60-115)
[2020-09-19 17:38] LABS: ~Lactic Acid-LAB USE ONLY 3.1 mmol/L (0.5-2.0)
[2020-09-19 18:11] LABS: Troponin-I High Sensitivity < 3.5 ng/L (<3.5-17.0)
[2020-09-19 18:12] LABS: Acetaminophen LAB 16 mcg/mL (<30); Alanine Aminotransferase 29 U/L (0-31); Albumin Level 4.2 g/dL (3.5-5.0); Alkaline Phosphatase 73 U/L (39-117); Anion Gap 20 (12-20); Aspartate Amino Transferase 103 U/L (5-31); Bilirubin Total 0.3 mg/dL (0.0-1.0); Blood Urea Nitrogen 12 mg/dL (9-16); Carbon Dioxide 13 mmol/L (22-29); Chloride 112 mmol/L (96-108); Creatinine Clr Calc Pharmacy 89.8; Estimated Glomerular Filt Rate > 60; Glucose Random 94 mg/dL (60-115); Potassium 3.5 mmol/L (3.3-5.1); Salicylate < 5.0 mg/dL (15-30); Sodium 141 mmol/L (135-145); Total Protein 7.5 g/dL (6.5-8.0)
[2020-09-19 18:12] LABS: VBG Base Excess -9.2 mmol/L; VBG HCO3 14 mmol/L (22-26); VBG pCO2 23 mmHg; VBG pH 7.37 (7.32-7.43); VBG pO2 110 mmHg
[2020-09-19 18:12] LABS: Venous Blood Gas Refer to POC result
[2020-09-19] MEDS: propofoL 200 MG/20 ML VIAL 50 MG IVPUSH (18:25)
[2020-09-19] MEDS: propofoL 200 MG/20 ML VIAL 30 MG IVPUSH (18:29)
[2020-09-19 19:06] LABS: Reflex Lactate? 2 Y
--- NOTE | 2020-09-19 19:11 | PC.NURSE ---
Pt given a total of 80mg propofol in order to obtain CT. VS remained stable. Physician present throughout procedure. No DC paperwork provided as pt is not oriented and pt will not be discharged at this time.
--- NOTE | 2020-09-19 19:19 | PC.NURSE ---
PT F/C HAD 1700cc
[2020-09-19 19:26] LABS: Glucose, Whole Blood 97 mg/dL (60-115)
--- NOTE | 2020-09-19 19:49 | PC.NURSE ---
ASSUMED CARE OF PT. PT RESTING IN STRETCHER WITH 1:1 OBS. PT RESTING IN NAD. PT'S LABS DRAWN, NS UP AND RUNNING W/O, PT WAKES TO VOICE AND FALLS BACK TO SLEEP. RESPIRATIONS EASY N/L. WILL CONTINUE TO MONITOR PT.
[2020-09-19 20:02] LABS: ~Lactic Acid-LAB USE ONLY 1.6 mmol/L (0.5-2.0)
[2020-09-19 20:15] LABS: Anion Gap 16 (12-20); Blood Urea Nitrogen 12 mg/dL (9-16); Calcium 7.7 mg/dL (8.4-10.2); Carbon Dioxide 15 mmol/L (22-29); Chloride 113 mmol/L (96-108); Creatinine Clr Calc Pharmacy 95.5; Estimated Glomerular Filt Rate > 60; Glucose Random 103 mg/dL (60-115); Potassium 3.4 mmol/L (3.3-5.1); Sodium 141 mmol/L (135-145)
--- NOTE | 2020-09-19 20:54 | PC.NURSE ---
PT MEDICATED AT THIS TIME.
[2020-09-19] MEDS: Calcium Gluconate/NaCl,Iso-Osm 2 GM/100 ML PLAST..BAG IV (20:56)
--- NOTE | 2020-09-19 21:15 | PC.NURSE ---
RN AWARE OF PATIENT HIGH RESPIRATION RATE .
--- NOTE | 2020-09-19 21:28 | PC.NURSE ---
DR WILLIS AWARE THAT PT ONLY HAS 1 IV TO RAC, INFUSING W/O DIFFICULTY, SITE INTACT. PT IS A VERY DIFFICULT STICK AND UNABLE TO GET 2ND LINE. OK'D NOT TO HANG SODIUM BICARB UNTIL 1ST INFUSION IS FINISHED. WILL CONTINUE TO MONITOR PT.
[2020-09-19] MEDS: Sodium Bicarbonate 8.4% 150 MEQ in Dextrose 5 % 850 ML 100 MEQ IV (22:53)
[2020-09-20 00:34] LABS: HCG Quantitative < 2 mIU/mL
[2020-09-20 00:40] VITALS: BP 110/68; PULSE 91; RESP 20; O2SAT 98
[2020-09-20] MEDS: Lactated Ringers 1,000 ML 150 ML IVCONT ×4 (02:30→20:03)
[2020-09-20] MEDS: 0.9 % Sodium Chloride Flush 3 ML SYRINGE IVFLUSH ×3 (04:35→17:36)
--- NOTE | 2020-09-20 05:05 | PC.NURSE ---
PT WAKES TO VOICE AND STARTLES WAKING UP. HOSPITALIST AT BEDSIDE AND AWARE OF HIGH RESPIRATORY RATE RANGING FROM 24-41 RESPIRATIONS. PT DENIES COMPLAINTS AND IS MUMBLING WORDS. MD TO ORDER ABG. OVER-NIGHT PHARMACY NOTIFIED AND STATED LACTATED RINGERS ARE COMPATIBLE WITH SODIUM BICARB IN THE Y PORT. NA+ BICARB AND LR UP AND RUNNING ON PUMP. PT IS A DIFFICULT STICK AND UNABLE TO GET 2ND LINE. HOSPITALIST AWARE. PT ON MONITOR WITH HR 94. PT IS NOT FOLLOWING SIMPLE COMMANDS AND STATES JUST LEAVE ME ALONE . WILL CONTINUE TO MONITOR PT.
--- NOTE | 2020-09-20 06:38 | PM.IMHP ---
History of Present Illness Date of Service: 09/19/20 Chief Complaint: Drug overdose This is a 25-year-old female with history of substance abuse who presents to the hospital after being found semiconscious on the floor by her family. Patient was found with different drugs around her. At this time patient is obtunded therefore history is obtained from ED physician. Patient presented with altered mental status after her friend apparently called her brother and told him that she was not waking up. She was found to be breathing heavily per her friend and therefore EMS was called. On arrival to the ED patient was significantly agitated, with bizarre behavior, and not providing any history. On my exam patient is obtunded and therefore unable to obtain any review of system. Patient's sister reports that patient did have possible self-harm behaviors and suicidal ideation. Due to her combative nature and agitation patient received Haldol, Ativan, Zyprexa, and propofol. Urine drug screen is positive for opioids as well as cocaine. Her vitals on arrival showed temp of 99.7?, heart rate of 114, respiratory rate of 42, blood pressure 124/85, satting 100% on room air Labs are significant for WBC count of 17.5, lactic acid of 3.4 than normalized after fluids, AST of 103, CPK of 10,528, urine negative for any infection. Chest x-ray shows no intrathoracic disease but head CT showed moderate multifocal airspace opacities in the visualized upper lung suggestive of an active infectious/inflammatory process Review of Systems Review of Systems: Yes Unobtainable due to mental condition and Unobtainable due to mental status [facility] Medical History Substance abuse Social History Patient Tobacco Use Status: Current someday Tobacco user Substance Use Type: Crack/Cocaine Advance Directives: Yes Advance Directives Information Provided: Yes Advance Directives on File: No Meds Allergies Allergy/AdvReac Type Severity Reaction Status Date / Time bee venom protein (honey bee) Allergy Intermediate Localized Verified 08/04/20 07:20 swelling near sting Active Medications: Current Medications Generic Name Dose Route Start Last Admin Trade Name Freq PRN Reason Stop Dose Admin Acetaminophen 650 mg 09/19/20 23:52 Acetaminophen 325 Mg Tablet PO Q6H PRN Pain, Mild (Pain Scale 1-3) Acetaminophen 650 mg 09/19/20 23:52 Acetaminophen Supp 650 Mg Supp.Rect LA Q6H PRN Pain, Mild (Pain Scale 1-3) Enoxaparin Sodium 40 mg 09/20/20 01:00 09/20/20 04:38 Enoxaparin Sodium 40 Mg/0.4 Ml Syringe SUBCUT Not Given Q24H [facility] Sodium Bicarbonate 150 meq/ 1,000 mls @ 100 mls/hr 09/19/20 21:17 09/20/20 00:49 Dextrose IV 09/20/20 07:16 Infused .Q10H ONE Infusion Ampicillin Sodium/Sulbactam 100 mls @ 200 mls/hr 09/20/20 01:00 Sodium 3 gm/ Sodium Chloride IV Q8H NAKUL Lactated Ringer's 1,000 mls @ 150 mls/hr 09/19/20 23:45 09/20/20 02:30 Lr IVCONT 150 mls/hr .Q6H40M [facility] Administration Ondansetron HCl 4 mg 09/19/20 23:52 Ondansetron Hcl 4 Mg/2 Ml Vial IVPUSH Q8H PRN Nausea and Vomiting Sodium Chloride 3 ml 09/20/20 00:00 09/20/20 04:35 0.9 % Sodium Chloride Flush 3 Ml Syringe IVFLUSH 3 ml QSHIFT NAKUL Administration Physical Exam Vital Signs and Narrative: Vital Signs: Last Vital Signs Temp 100.7 F H 09/19/20 21:14 Pulse 91 09/20/20 00:40 Resp 20 09/20/20 00:40 BP 110/68 09/20/20 00:40 Pulse Ox 98 09/20/20 00:40 Body Mass Index 20.5 Const: General: ill appearing, patient obtunded and poor hygiene Orientation/consciousness: patient obtunded Eyes: General: appearance normal, both eyes and all related structures Resp: Effort & Inspection: normal respiratory effort Auscultation: clear to auscultation bilaterally Cardio: Rate: regular rate Rhythm: regular rhythm GI: Palpation (GI): Soft to palpation Auscultation: normal bowel sounds Skin: Other: Has multiple abrasions all over her face, Neuro: General: patient obtunded Cognition (Neuro): normal cognition Extrem: General: Yes normal to inspection and Yes no pedal edema Results Labs CBC and Chem 7: 09/19/20 17:00 09/19/20 19:39 Labs: Laboratory Results - last 24 hr 09/19/20 09/19/20 09/19/20 00:00 14:09 14:09 MCV 90.4 MCH 31.0 MCHC 34.2 RDW 12.1 Plt Count 262 MPV 9.5 Immature Gran % (Auto) 0.4 Neut % (Auto) 93.2 H Lymph % (Auto) 3.8 L [place] % (Auto) 2.4 Eos % (Auto) 0.0 Baso % (Auto) 0.2 Lymph # (Auto) 0.7 L [place] # (Auto) 0.5 Eos # (Auto) 0.0 Baso # (Auto) 0.0 Abs Immat Gran (auto) 0.07 H Absolute Neuts (auto) 17.3 H Absolute Nucleated RBC 0.000 Nucleated RBC % (auto) 0.0 Smear Tech's Comments VERIFIED Hold Purple Top PT 12.8 INR 1.1 VBG pH VBG pCO2 VBG pO2 VBG HCO3 VBG O2 Saturation VBG Base Excess Anion Gap Estim Creat Clear Calc Estimated GFR POC Glucose Random Glucose Lactic Acid Lactic Acid Fup @ 2Hr Lactic Acid Fup @ 4Hr Calcium Magnesium Total Bilirubin AST ALT Alkaline Phosphatase Ammonia Total Creatine Kinase Troponin I High Sens Total Protein Albumin Lipase Beta HCG, Quant Urine Color Urine Appearance Urine pH Ur Specific [place] Urine Protein Urine Glucose (UA) Urine Ketones Urine Blood Urine Nitrite Ur Leukocyte Esterase Urine RBC Urine WBC Ur Squamous Epith Cells Amorphous Sediment Urine Bacteria Urine Mucus Salicylates Urine Opiates Screen Acetaminophen Ur Barbiturates Screen Ur Phencyclidine Scrn Ur Amphetamines Screen U Benzodiazepines Scrn Urine Cocaine Screen U Marijuana (THC) Screen Ethyl Alcohol COVID-19 ([facility]) Negative COVID-19 Clin Com See Note 09/19/20 09/19/20 09/19/20 14:09 14:09 14:09 MCV MCH MCHC RDW Plt Count MPV Immature Gran % (Auto) Neut % (Auto) Lymph % (Auto) [place] % (Auto) Eos % (Auto) Baso % (Auto) Lymph # (Auto) [place] # (Auto) Eos # (Auto) Baso # (Auto) Abs Immat Gran (auto) Absolute Neuts (auto) Absolute Nucleated RBC Nucleated RBC % (auto) Smear Tech's Comments Hold Purple Top SEE NOTE PT INR VBG pH VBG pCO2 VBG pO2 VBG HCO3 VBG O2 Saturation VBG Base Excess Anion Gap 22 H Estim Creat Clear Calc 78.5 Estimated GFR > 60 POC Glucose Random Glucose 73 Lactic Acid Lactic Acid Fup @ 2Hr Lactic Acid Fup @ 4Hr Calcium 9.1 Magnesium 2.6 Total Bilirubin 0.2 AST 82 H ALT 30 Alkaline Phosphatase 88 Ammonia Total Creatine Kinase Troponin I High Sens Total Protein 8.9 H Albumin 5.0 Lipase 26 Beta HCG, Quant < 2 Urine Color Urine Appearance Urine pH Ur Specific [place] Urine Protein Urine Glucose (UA) Urine Ketones Urine Blood Urine Nitrite Ur Leukocyte Esterase Urine RBC Urine WBC Ur Squamous Epith Cells Amorphous Sediment Urine Bacteria Urine Mucus Salicylates Urine Opiates Screen Acetaminophen Ur Barbiturates Screen Ur Phencyclidine Scrn Ur Amphetamines Screen U Benzodiazepines Scrn Urine Cocaine Screen U Marijuana (THC) Screen Ethyl Alcohol COVID-19 ([facility]) COVID-19 [employer] 09/19/20 09/19/20 09/19/20 14:09 14:09 14:10 MCV MCH MCHC RDW Plt Count MPV Immature Gran % (Auto) Neut % (Auto) Lymph % (Auto) [place] % (Auto) Eos % (Auto) Baso % (Auto) Lymph # (Auto) [place] # (Auto) Eos # (Auto) Baso # (Auto) Abs Immat Gran (auto) Absolute Neuts (auto) Absolute Nucleated RBC Nucleated RBC % (auto) Smear Tech's Comments Hold Purple Top PT INR VBG pH VBG pCO2 VBG pO2 VBG HCO3 VBG O2 Saturation VBG Base Excess Anion Gap Estim Creat Clear Calc Estimated GFR POC Glucose Random Glucose Lactic Acid 3.4 H* Lactic Acid Fup @ 2Hr Lactic Acid Fup @ 4Hr Calcium Magnesium Total Bilirubin AST ALT Alkaline Phosphatase Ammonia Total Creatine Kinase Troponin I High Sens Total Protein Albumin Lipase Beta HCG, Quant Urine Color Urine Appearance Urine pH Ur Specific [place] Urine Protein Urine Glucose (UA) Urine Ketones Urine Blood Urine Nitrite Ur Leukocyte Esterase Urine RBC Urine WBC Ur Squamous Epith Cells Amorphous Sediment Urine Bacteria Urine Mucus Salicylates < 5.0 L Urine Opiates Screen Acetaminophen 23 Ur Barbiturates Screen Ur Phencyclidine Scrn Ur Amphetamines Screen U Benzodiazepines Scrn Urine Cocaine Screen U Marijuana (THC) Screen Ethyl Alcohol < 10 COVID-19 ([facility]) COVID-19 Clin Com 09/19/20 09/19/20 09/19/20 14:10 15:47 15:47 MCV MCH MCHC RDW Plt Count MPV Immature Gran % (Auto) Neut % (Auto) Lymph % (Auto) [place] % (Auto) Eos % (Auto) Baso % (Auto) Lymph # (Auto) [place] # (Auto) Eos # (Auto) Baso # (Auto) Abs Immat Gran (auto) Absolute Neuts (auto) Absolute Nucleated RBC Nucleated RBC % (auto) Smear Tech's Comments Hold Purple Top PT INR VBG pH VBG pCO2 VBG pO2 VBG HCO3 VBG O2 Saturation VBG Base Excess Anion Gap Estim Creat Clear Calc Estimated GFR POC Glucose Random Glucose Lactic Acid Lactic Acid Fup @ 2Hr Lactic Acid Fup @ 4Hr Calcium Magnesium Total Bilirubin AST ALT Alkaline Phosphatase Ammonia 23 Total Creatine Kinase Troponin I High Sens Total Protein Albumin Lipase Beta HCG, Quant Urine Color YELLOW Urine Appearance CLEAR Urine pH 6.0 Ur Specific [place] >= 1.030 H Urine Protein TRACE Urine Glucose (UA) NEG Urine Ketones NEG Urine Blood 1+ H Urine Nitrite NEG Ur Leukocyte Esterase NEG Urine RBC 0-2 Urine WBC 0 Ur Squamous Epith Cells 1+ Amorphous Sediment TRACE Urine Bacteria TRACE Urine Mucus TRACE Salicylates Urine Opiates Screen POSITIVE H Acetaminophen Ur Barbiturates Screen Not Detected Ur Phencyclidine Scrn Not Detected Ur Amphetamines Screen Not Detected U Benzodiazepines Scrn Not Detected Urine Cocaine Screen POSITIVE H U Marijuana (THC) Screen Not Detected Ethyl Alcohol COVID-19 ([facility]) COVID-19 Clin Com 09/19/20 09/19/20 09/19/20 16:53 17:00 17:00 MCV MCH MCHC RDW Plt Count MPV Immature Gran % (Auto) Neut % (Auto) Lymph % (Auto) [place] % (Auto) Eos % (Auto) Baso % (Auto) Lymph # (Auto) [place] # (Auto) Eos # (Auto) Baso # (Auto) Abs Immat Gran (auto) Absolute Neuts (auto) Absolute Nucleated RBC Nucleated RBC % (auto) Smear Tech's Comments Hold Purple Top PT INR VBG pH VBG pCO2 VBG pO2 VBG HCO3 VBG O2 Saturation VBG Base Excess Anion Gap 20 Estim Creat Clear Calc 89.8 Estimated GFR > 60 POC Glucose 86 Random Glucose 94 Lactic Acid Lactic Acid Fup @ 2Hr 3.1 H* Lactic Acid Fup @ 4Hr Calcium 8.0 L D Magnesium Total Bilirubin 0.3 AST 103 H ALT 29 Alkaline Phosphatase 73 Ammonia Total Creatine Kinase 25463 H Troponin I High Sens Total Protein 7.5 Albumin 4.2 Lipase Beta HCG, Quant Urine Color Urine Appearance Urine pH Ur Specific [place] Urine Protein Urine Glucose (UA) Urine Ketones Urine Blood Urine Nitrite Ur Leukocyte Esterase Urine RBC Urine WBC Ur Squamous Epith Cells Amorphous Sediment Urine Bacteria Urine Mucus Salicylates < 5.0 L Urine Opiates Screen Acetaminophen 16 Ur Barbiturates Screen Ur Phencyclidine Scrn Ur Amphetamines Screen U Benzodiazepines Scrn Urine Cocaine Screen U Marijuana (THC) Screen Ethyl Alcohol COVID-19 ([facility]) COVID-19 Clin Com 09/19/20 09/19/20 09/19/20 17:00 17:05 18:04 MCV 89.1 MCH 31.4 MCHC 35.3 H RDW 12.1 Plt Count 244 MPV 9.6 Immature Gran % (Auto) 0.4 Neut % (Auto) 91.6 H Lymph % (Auto) 5.6 L [place] % (Auto) 2.2 Eos % (Auto) 0.0 Baso % (Auto) 0.2 Lymph # (Auto) 1.0 L [place] # (Auto) 0.4 Eos # (Auto) 0.0 Baso # (Auto) 0.0 Abs Immat Gran (auto) 0.07 H Absolute Neuts (auto) 16.0 H Absolute Nucleated RBC 0.000 Nucleated RBC % (auto) 0.0 Smear Tech's Comments Hold Purple Top PT INR VBG pH 7.37 VBG pCO2 23 VBG pO2 110 VBG HCO3 14 L VBG O2 Saturation 98.0 VBG Base Excess -9.2 Anion Gap Estim Creat Clear Calc Estimated GFR POC Glucose Random Glucose Lactic Acid Lactic Acid Fup @ 2Hr Lactic Acid Fup @ 4Hr Calcium Magnesium Total Bilirubin AST ALT Alkaline Phosphatase Ammonia Total Creatine Kinase Troponin I High Sens < 3.5 Total Protein Albumin Lipase Beta HCG, Quant Urine Color Urine Appearance Urine pH Ur Specific [place] Urine Protein Urine Glucose (UA) Urine Ketones Urine Blood Urine Nitrite Ur Leukocyte Esterase Urine RBC Urine WBC Ur Squamous Epith Cells Amorphous Sediment Urine Bacteria Urine Mucus Salicylates Urine Opiates Screen Acetaminophen Ur Barbiturates Screen Ur Phencyclidine Scrn Ur Amphetamines Screen U Benzodiazepines Scrn Urine Cocaine Screen U Marijuana (THC) Screen Ethyl Alcohol COVID-19 ([facility]) COVID-19 Clin Com 09/19/20 09/19/20 09/19/20 19:23 19:39 19:39 MCV MCH MCHC RDW Plt Count MPV Immature Gran % (Auto) Neut % (Auto) Lymph % (Auto) [place] % (Auto) Eos % (Auto) Baso % (Auto) Lymph # (Auto) [place] # (Auto) Eos # (Auto) Baso # (Auto) Abs Immat Gran (auto) Absolute Neuts (auto) Absolute Nucleated RBC Nucleated RBC % (auto) Smear Tech's Comments Hold Purple Top PT INR VBG pH VBG pCO2 VBG pO2 VBG HCO3 VBG O2 Saturation VBG Base Excess Anion Gap 16 Estim Creat Clear Calc 95.5 Estimated GFR > 60 POC Glucose 97 Random Glucose 103 Lactic Acid Lactic Acid Fup @ 2Hr Lactic Acid Fup @ 4Hr 1.6 Calcium 7.7 L Magnesium Total Bilirubin AST ALT Alkaline Phosphatase Ammonia Total Creatine Kinase 02559 H Troponin I High Sens Total Protein Albumin Lipase Beta HCG, Quant < 2 Urine Color Urine Appearance Urine pH Ur Specific [place] Urine Protein Urine Glucose (UA) Urine Ketones Urine Blood Urine Nitrite Ur Leukocyte Esterase Urine RBC Urine WBC Ur Squamous Epith Cells Amorphous Sediment Urine Bacteria Urine Mucus Salicylates Urine Opiates Screen Acetaminophen Ur Barbiturates Screen Ur Phencyclidine Scrn Ur Amphetamines Screen U Benzodiazepines Scrn Urine Cocaine Screen U Marijuana (THC) Screen Ethyl Alcohol COVID-19 ([facility]) COVID-19 Clin Com Imaging Radiologist's Impressions: Impressions Cervical Spine CT 09/19/20 15:01 IMPRESSION: Exam is significantly motion degraded. Within the limitations of this exam, there is no evidence of acute intracranial hemorrhage or edematous territorial infarction. No evidence of acute fracture or subluxation of the cervical spine. Moderate multifocal airspace opacities in the visualized upper lungs suggestive of an active infectious/inflammatory process. Head CT 09/19/20 15:01 IMPRESSION: Exam is significantly motion degraded. Within the limitations of this exam, there is no evidence of acute intracranial hemorrhage or edematous territorial infarction. No evidence of acute fracture or subluxation of the cervical spine. Moderate multifocal airspace opacities in the visualized upper lungs suggestive of an active infectious/inflammatory process. Chest X-Ray 09/19/20 17:30 IMPRESSION: No acute intrathoracic disease. Assessment and Plan (1) Drug overdose: Status: Acute (2) Encephalopathy: Status: Acute (3) Pneumonia: Status: Acute This is a 25-year-old female with past medical history of polysubstance abuse who presents to the hospital after friend and family found her on the floor semiconscious with drugs although around her. # encephalopathy - most likely secondary to drug overdose, CT head negative for intracranial pathology - patient received multiple sedating medications therefore currently have tended - monitor mental status, re-evaluate once more awake # drug overdose - positive for opioids and cocaine - there is also possible self-harm behavior - in lead evaluation by care team/behavioral health once patient is more alert # pneumonia - most likely aspiration - seen on CT of the head - patient too combative and agitated and does not follow command for chest CT - will treat her for aspiration pneumonia - follow cultures DVT prophylaxis: Lovenox Quality Stroke Does the patient have a stroke diagnosis?: No VTE Prior VTE?: No VTE Risk Level:: Medical - moderate - high VTE Device Contraindication: Treatment Not Indicated VTE Drug Contraindication: N/A - Med Ordered
[2020-09-20 07:01] LABS: MANUAL DIFF FLAG NO
[2020-09-20 07:05] LABS: Basophils Percent Auto 0.2 % (0-2); Eosinophils Percent Auto 0.1 % (0-4); Hematocrit 33.6 % (37-47); Hemoglobin 11.5 g/dl (12.0-16.0); Imm Gran Abs Auto 0.05 X10*3/uL (0.00-0.03); Imm Gran Pct Auto 0.3 % (0.0-0.4); Lymphocytes Absolute Auto 1.9 X10*3/uL (1.2-4.9); Lymphocytes Percent Auto 12.7 % (20-40); Mean Corpuscular HGB Conc 34.2 g/dl (31.0-35.0); Mean Corpuscular Hemoglobin 31.1 pg (27.0-33.0); Mean Corpuscular Volume 90.8 fL (80-98); Mean Platelet Volume 9.6 fL (9.4-12.3); Monocytes Absolute Auto 0.6 X10*3/uL (0.1-1.2); Monocytes Percent Auto 3.8 % (2-11); Neutrophils Absolute Auto 12.2 X10*3/uL (2.0-8.3); Neutrophils Percent Auto 82.9 % (45-73); Platelet Count 245 X10*3/uL (160-400); Red Cell Distribution Width 12.7 % (11.0-16.0); White Blood Count 14.7 X10*3/uL (4.8-10.8)
--- NOTE | 2020-09-20 07:06 | PC.NURSE ---
Lab called to say blood gas drawn per phlebotomy just prior to shift change was too old to run. Lab informed pt is a difficulty stick and phlebotomy needed to come redraw.
--- NOTE | 2020-09-20 07:08 | PC.NURSE ---
LAB IN ROOM TO DRAW BLOOD. PT WAKES TO VOICE AND MUMBLES WORDS UNABLE TO UNDERSTAND WHAT PT IS SAYING. LR AND SODIUM BICARB UP AND RUNNING ON PUMP, SITE INTACT. LABS DRAWN TO LAB. REPORT GIVEN TO ARIADNE PRICE.
--- NOTE | 2020-09-20 07:28 | PHA.MEDREC ---
Pharmacy Consult ? Medication Reconciliation Pharmacy has completed the medication reconciliation.According to Pati her last dose of Suboxone would have been on 09/17/20.
[2020-09-20 07:39] LABS: Glucose, Whole Blood 102 mg/dL (60-115)
[2020-09-20 07:39] LABS: Anion Gap 16 (12-20); Blood Urea Nitrogen 13 mg/dL (9-16); Carbon Dioxide 19 mmol/L (22-29); Chloride 112 mmol/L (96-108); Estimated Glomerular Filt Rate > 60; Glucose Random 104 mg/dL (60-115); Potassium 3.9 mmol/L (3.3-5.1); Sodium 143 mmol/L (135-145)
[2020-09-20 07:41] VITALS: BP 122/78; PULSE 96; RESP 24; O2SAT 96
--- NOTE | 2020-09-20 07:44 | PC.NURSE ---
Patient lying in bed quietly. Pt mumbles when she speaks. Pt answers to name. Bilateral breath sounds are clear to auscultate. Respirations are even and nonlabored at 24 . Respiratory rate increases to 33 with movement. Loose cough noted.
[2020-09-20 07:57] LABS: Calcium 8.5 mg/dL (8.4-10.2)
--- NOTE | 2020-09-20 10:00 | PC.NURSE ---
Patient back from getting ct of chest. Pt continues to mumble from time to time. The only clear speech from pt is when she says stop when staff adjust bp cuff or places pulse ox on finger. Pt changes position herself. Cat catheter remain in place and draining. IV site wnl.
[2020-09-20 10:04] VITALS: BP 135/78; PULSE 85; RESP 28; O2SAT 99
[2020-09-20] MEDS: Ampicillin Sodium/Sulbactam Na 3 GM in 0.9 % Sodium Chloride 100 ML IV ×2 (10:10→17:43)
--- NOTE | 2020-09-20 10:48 | HO.PM.IMPN ---
Subjective Subjective Date of Service: 09/21/20 Interval History: Seen in f/u for drup overdose, aspiration pneumonia and rhabdomylosis. She is becoming more alert and awake, Review of Systems Review of Systems: Yes Unobtainable due to mental status Physical Exam Vital Signs: Vital Signs: Last Vital Signs Temp 100.7 F H 09/19/20 21:14 Pulse 85 09/20/20 10:04 Resp 28 H 09/20/20 10:04 BP 135/78 09/20/20 10:04 Pulse Ox 99 09/20/20 10:04 Body Mass Index 20.5 Const: General: ill appearing, patient obtunded and poor hygiene Orientation/consciousness: patient obtunded Eyes: General: appearance normal, both eyes and all related structures Resp: Effort & Inspection: normal respiratory effort Auscultation: clear to auscultation bilaterally Cardio: Rate: regular rate Rhythm: regular rhythm GI: Palpation (GI): Soft to palpation Auscultation: normal bowel sounds Skin: Other: Has multiple abrasions all over her face, Neuro: General: patient obtunded Cognition (Neuro): normal cognition Extrem: General: Yes normal to inspection and Yes no pedal edema Objective Data Current Medications Generic Name Dose Route Start Last Admin Trade Name Freq PRN Reason Stop Dose Admin Acetaminophen 650 mg 09/19/20 23:52 Acetaminophen 325 Mg Tablet PO Q6H PRN Pain, Mild (Pain Scale 1-3) Acetaminophen 650 mg 09/19/20 23:52 Acetaminophen Supp 650 Mg Supp.Rect KS Q6H PRN Pain, Mild (Pain Scale 1-3) Enoxaparin Sodium 40 mg 09/20/20 01:00 09/20/20 04:38 Enoxaparin Sodium 40 Mg/0.4 Ml Syringe SUBCUT Not Given Q24H NAKUL Ampicillin Sodium/Sulbactam 100 mls @ 200 mls/hr 09/20/20 01:00 09/20/20 10:10 Sodium 3 gm/ Sodium Chloride IV 200 mls/hr Q8H NAKUL Administration Lactated Ringer's 1,000 mls @ 150 mls/hr 09/19/20 23:45 09/20/20 07:07 Lr IVCONT 150 mls/hr .Q6H40M NAKUL Administration Ondansetron HCl 4 mg 09/19/20 23:52 Ondansetron Hcl 4 Mg/2 Ml Vial IVPUSH Q8H PRN Nausea and Vomiting Sodium Chloride 3 ml 09/20/20 00:00 09/20/20 04:35 0.9 % Sodium Chloride Flush 3 Ml Syringe IVFLUSH 3 ml QSHIFT [facility] Administration Labs CBC & Chem 7: 09/21/20 08:03 09/20/20 06:52 Labs: Laboratory Results - last 24 hr 09/19/20 09/19/20 09/19/20 00:00 14:09 14:09 WBC 18.6 H RBC 4.49 Hgb 13.9 Hct 40.6 MCV 90.4 MCH 31.0 MCHC 34.2 RDW 12.1 Plt Count 262 MPV 9.5 Immature Gran % (Auto) 0.4 Neut % (Auto) 93.2 H Lymph % (Auto) 3.8 L [place] % (Auto) 2.4 Eos % (Auto) 0.0 Baso % (Auto) 0.2 Lymph # (Auto) 0.7 L [place] # (Auto) 0.5 Eos # (Auto) 0.0 Baso # (Auto) 0.0 Abs Immat Gran (auto) 0.07 H Absolute Neuts (auto) 17.3 H Absolute Nucleated RBC 0.000 Nucleated RBC % (auto) 0.0 Smear Tech's Comments VERIFIED Hold Purple Top PT 12.8 INR 1.1 VBG pH VBG pCO2 VBG pO2 VBG HCO3 VBG O2 Saturation VBG Base Excess Sodium Potassium Chloride Carbon Dioxide Anion Gap BUN Creatinine Estim Creat Clear Calc Estimated GFR POC Glucose Random Glucose Lactic Acid Lactic Acid Fup @ 2Hr Lactic Acid Fup @ 4Hr Calcium Magnesium Total Bilirubin AST ALT Alkaline Phosphatase Ammonia Total Creatine Kinase Troponin I High Sens Total Protein Albumin Lipase Beta HCG, Quant Urine Color Urine Appearance Urine pH Ur Specific [place] Urine Protein Urine Glucose (UA) Urine Ketones Urine Blood Urine Nitrite Ur Leukocyte Esterase Urine RBC Urine WBC Ur Squamous Epith Cells Amorphous Sediment Urine Bacteria Urine Mucus Salicylates Urine Opiates Screen Acetaminophen Ur Barbiturates Screen Ur Phencyclidine Scrn Ur Amphetamines Screen U Benzodiazepines Scrn Urine Cocaine Screen U Marijuana (THC) Screen Ethyl Alcohol COVID-19 ([facility]) Negative COVID-19 Clin Com See Note 09/19/20 09/19/20 09/19/20 14:09 14:09 14:09 WBC RBC Hgb Hct MCV MCH MCHC RDW Plt Count MPV Immature Gran % (Auto) Neut % (Auto) Lymph % (Auto) [place] % (Auto) Eos % (Auto) Baso % (Auto) Lymph # (Auto) [place] # (Auto) Eos # (Auto) Baso # (Auto) Abs Immat Gran (auto) Absolute Neuts (auto) Absolute Nucleated RBC Nucleated RBC % (auto) Smear Tech's Comments Hold Purple Top SEE NOTE PT INR VBG pH VBG pCO2 VBG pO2 VBG HCO3 VBG O2 Saturation VBG Base Excess Sodium 139 Potassium 3.3 D Chloride 101 Carbon Dioxide 19 L Anion Gap 22 H BUN 13 Creatinine 0.95 Estim Creat Clear Calc 78.5 Estimated GFR > 60 POC Glucose Random Glucose 73 Lactic Acid Lactic Acid Fup @ 2Hr Lactic Acid Fup @ 4Hr Calcium 9.1 Magnesium 2.6 Total Bilirubin 0.2 AST 82 H ALT 30 Alkaline Phosphatase 88 Ammonia Total Creatine Kinase Troponin I High Sens Total Protein 8.9 H Albumin 5.0 Lipase 26 Beta HCG, Quant < 2 Urine Color Urine Appearance Urine pH Ur Specific [place] Urine Protein Urine Glucose (UA) Urine Ketones Urine Blood Urine Nitrite Ur Leukocyte Esterase Urine RBC Urine WBC Ur Squamous Epith Cells Amorphous Sediment Urine Bacteria Urine Mucus Salicylates Urine Opiates Screen Acetaminophen Ur Barbiturates Screen Ur Phencyclidine Scrn Ur Amphetamines Screen U Benzodiazepines Scrn Urine Cocaine Screen U Marijuana (THC) Screen Ethyl Alcohol COVID-19 ([facility]) COVID-19 Clin Com 09/19/20 09/19/20 09/19/20 14:09 14:09 14:10 WBC RBC Hgb Hct MCV MCH MCHC RDW Plt Count MPV Immature Gran % (Auto) Neut % (Auto) Lymph % (Auto) [place] % (Auto) Eos % (Auto) Baso % (Auto) Lymph # (Auto) [place] # (Auto) Eos # (Auto) Baso # (Auto) Abs Immat Gran (auto) Absolute Neuts (auto) Absolute Nucleated RBC Nucleated RBC % (auto) Smear Tech's Comments Hold Purple Top PT INR VBG pH VBG pCO2 VBG pO2 VBG HCO3 VBG O2 Saturation VBG Base Excess Sodium Potassium Chloride Carbon Dioxide Anion Gap BUN Creatinine Estim Creat Clear Calc Estimated GFR POC Glucose Random Glucose Lactic Acid 3.4 H* Lactic Acid Fup @ 2Hr Lactic Acid Fup @ 4Hr Calcium Magnesium Total Bilirubin AST ALT Alkaline Phosphatase Ammonia Total Creatine Kinase Troponin I High Sens Total Protein Albumin Lipase Beta HCG, Quant Urine Color Urine Appearance Urine pH Ur Specific [place] Urine Protein Urine Glucose (UA) Urine Ketones Urine Blood Urine Nitrite Ur Leukocyte Esterase Urine RBC Urine WBC Ur Squamous Epith Cells Amorphous Sediment Urine Bacteria Urine Mucus Salicylates < 5.0 L Urine Opiates Screen Acetaminophen 23 Ur Barbiturates Screen Ur Phencyclidine Scrn Ur Amphetamines Screen U Benzodiazepines Scrn Urine Cocaine Screen U Marijuana (THC) Screen Ethyl Alcohol < 10 COVID-19 ([facility]) COVID-19 [employer] Com 09/19/20 09/19/20 09/19/20 14:10 15:47 15:47 WBC RBC Hgb Hct MCV MCH MCHC RDW Plt Count MPV Immature Gran % (Auto) Neut % (Auto) Lymph % (Auto) [place] % (Auto) Eos % (Auto) Baso % (Auto) Lymph # (Auto) [place] # (Auto) Eos # (Auto) Baso # (Auto) Abs Immat Gran (auto) Absolute Neuts (auto) Absolute Nucleated RBC Nucleated RBC % (auto) Smear Tech's Comments Hold Purple Top PT INR VBG pH VBG pCO2 VBG pO2 VBG HCO3 VBG O2 Saturation VBG Base Excess Sodium Potassium Chloride Carbon Dioxide Anion Gap BUN Creatinine Estim Creat Clear Calc Estimated GFR POC Glucose Random Glucose Lactic Acid Lactic Acid Fup @ 2Hr Lactic Acid Fup @ 4Hr Calcium Magnesium Total Bilirubin AST ALT Alkaline Phosphatase Ammonia 23 Total Creatine Kinase Troponin I High Sens Total Protein Albumin Lipase Beta HCG, Quant Urine Color YELLOW Urine Appearance CLEAR Urine pH 6.0 Ur Specific [place] >= 1.030 H Urine Protein TRACE Urine Glucose (UA) NEG Urine Ketones NEG Urine Blood 1+ H Urine Nitrite NEG Ur Leukocyte Esterase NEG Urine RBC 0-2 Urine WBC 0 Ur Squamous Epith Cells 1+ Amorphous Sediment TRACE Urine Bacteria TRACE Urine Mucus TRACE Salicylates Urine Opiates Screen POSITIVE H Acetaminophen Ur Barbiturates Screen Not Detected Ur Phencyclidine Scrn Not Detected Ur Amphetamines Screen Not Detected U Benzodiazepines Scrn Not Detected Urine Cocaine Screen POSITIVE H U Marijuana (THC) Screen Not Detected Ethyl Alcohol COVID-19 ([facility]) COVID-19 [employer] Com 09/19/20 09/19/20 09/19/20 16:53 17:00 17:00 WBC RBC Hgb Hct MCV MCH MCHC RDW Plt Count MPV Immature Gran % (Auto) Neut % (Auto) Lymph % (Auto) [place] % (Auto) Eos % (Auto) Baso % (Auto) Lymph # (Auto) [place] # (Auto) Eos # (Auto) Baso # (Auto) Abs Immat Gran (auto) Absolute Neuts (auto) Absolute Nucleated RBC Nucleated RBC % (auto) Smear Tech's Comments Hold Purple Top PT INR VBG pH VBG pCO2 VBG pO2 VBG HCO3 VBG O2 Saturation VBG Base Excess Sodium 141 Potassium 3.5 Chloride 112 H Carbon Dioxide 13 L Anion Gap 20 BUN 12 Creatinine 0.83 Estim Creat Clear Calc 89.8 Estimated GFR > 60 POC Glucose 86 Random Glucose 94 Lactic Acid Lactic Acid Fup @ 2Hr 3.1 H* Lactic Acid Fup @ 4Hr Calcium 8.0 L D Magnesium Total Bilirubin 0.3 AST 103 H ALT 29 Alkaline Phosphatase 73 Ammonia Total Creatine Kinase 96549 H Troponin I High Sens Total Protein 7.5 Albumin 4.2 Lipase Beta HCG, Quant Urine Color Urine Appearance Urine pH Ur Specific [place] Urine Protein Urine Glucose (UA) Urine Ketones Urine Blood Urine Nitrite Ur Leukocyte Esterase Urine RBC Urine WBC Ur Squamous Epith Cells Amorphous Sediment Urine Bacteria Urine Mucus Salicylates < 5.0 L Urine Opiates Screen Acetaminophen 16 Ur Barbiturates Screen Ur Phencyclidine Scrn Ur Amphetamines Screen U Benzodiazepines Scrn Urine Cocaine Screen U Marijuana (THC) Screen Ethyl Alcohol COVID-19 ([facility]) COVID-19 Clin Com 09/19/20 09/19/20 09/19/20 17:00 17:05 18:04 WBC 17.5 H RBC 4.04 L Hgb 12.7 Hct 36.0 L MCV 89.1 MCH 31.4 MCHC 35.3 H RDW 12.1 Plt Count 244 MPV 9.6 Immature Gran % (Auto) 0.4 Neut % (Auto) 91.6 H Lymph % (Auto) 5.6 L [place] % (Auto) 2.2 Eos % (Auto) 0.0 Baso % (Auto) 0.2 Lymph # (Auto) 1.0 L [place] # (Auto) 0.4 Eos # (Auto) 0.0 Baso # (Auto) 0.0 Abs Immat Gran (auto) 0.07 H Absolute Neuts (auto) 16.0 H Absolute Nucleated RBC 0.000 Nucleated RBC % (auto) 0.0 Smear Tech's Comments Hold Purple Top PT INR VBG pH 7.37 VBG pCO2 23 VBG pO2 110 VBG HCO3 14 L VBG O2 Saturation 98.0 VBG Base Excess -9.2 Sodium Potassium Chloride Carbon Dioxide Anion Gap BUN Creatinine Estim Creat Clear Calc Estimated GFR POC Glucose Random Glucose Lactic Acid Lactic Acid Fup @ 2Hr Lactic Acid Fup @ 4Hr Calcium Magnesium Total Bilirubin AST ALT Alkaline Phosphatase Ammonia Total Creatine Kinase Troponin I High Sens < 3.5 Total Protein Albumin Lipase Beta HCG, Quant Urine Color Urine Appearance Urine pH Ur Specific [place] Urine Protein Urine Glucose (UA) Urine Ketones Urine Blood Urine Nitrite Ur Leukocyte Esterase Urine RBC Urine WBC Ur Squamous Epith Cells Amorphous Sediment Urine Bacteria Urine Mucus Salicylates Urine Opiates Screen Acetaminophen Ur Barbiturates Screen Ur Phencyclidine Scrn Ur Amphetamines Screen U Benzodiazepines Scrn Urine Cocaine Screen U Marijuana (THC) Screen Ethyl Alcohol COVID-19 ([facility]) COVID-19 [employer] 09/19/20 09/19/20 09/19/20 19:23 19:39 19:39 WBC RBC Hgb Hct MCV MCH MCHC RDW Plt Count MPV Immature Gran % (Auto) Neut % (Auto) Lymph % (Auto) [place] % (Auto) Eos % (Auto) Baso % (Auto) Lymph # (Auto) [place] # (Auto) Eos # (Auto) Baso # (Auto) Abs Immat Gran (auto) Absolute Neuts (auto) Absolute Nucleated RBC Nucleated RBC % (auto) Smear Tech's Comments Hold Purple Top PT INR VBG pH VBG pCO2 VBG pO2 VBG HCO3 VBG O2 Saturation VBG Base Excess Sodium 141 Potassium 3.4 Chloride 113 H Carbon Dioxide 15 L Anion Gap 16 BUN 12 Creatinine 0.78 Estim Creat Clear Calc 95.5 Estimated GFR > 60 POC Glucose 97 Random Glucose 103 Lactic Acid Lactic Acid Fup @ 2Hr Lactic Acid Fup @ 4Hr 1.6 Calcium 7.7 L Magnesium Total Bilirubin AST ALT Alkaline Phosphatase Ammonia Total Creatine Kinase 54648 H Troponin I High Sens Total Protein Albumin Lipase Beta HCG, Quant < 2 Urine Color Urine Appearance Urine pH Ur Specific [place] Urine Protein Urine Glucose (UA) Urine Ketones Urine Blood Urine Nitrite Ur Leukocyte Esterase Urine RBC Urine WBC Ur Squamous Epith Cells Amorphous Sediment Urine Bacteria Urine Mucus Salicylates Urine Opiates Screen Acetaminophen Ur Barbiturates Screen Ur Phencyclidine Scrn Ur Amphetamines Screen U Benzodiazepines Scrn Urine Cocaine Screen U Marijuana (THC) Screen Ethyl Alcohol COVID-19 ([facility]) COVID-19 [employer] 09/20/20 09/20/20 09/20/20 06:52 06:52 07:35 WBC 14.7 H RBC 3.70 L Hgb 11.5 L Hct 33.6 L MCV 90.8 MCH 31.1 MCHC 34.2 RDW 12.7 Plt Count 245 MPV 9.6 Immature Gran % (Auto) 0.3 Neut % (Auto) 82.9 H Lymph % (Auto) 12.7 L [place] % (Auto) 3.8 Eos % (Auto) 0.1 Baso % (Auto) 0.2 Lymph # (Auto) 1.9 [place] # (Auto) 0.6 Eos # (Auto) 0.0 Baso # (Auto) 0.0 Abs Immat Gran (auto) 0.05 H Absolute Neuts (auto) 12.2 H Absolute Nucleated RBC 0.000 Nucleated RBC % (auto) 0.0 Smear Tech's Comments Hold Purple Top PT INR VBG pH VBG pCO2 VBG pO2 VBG HCO3 VBG O2 Saturation VBG Base Excess Sodium 143 Potassium 3.9 Chloride 112 H Carbon Dioxide 19 L Anion Gap 16 BUN 13 Creatinine 0.81 Estim Creat Clear Calc 92.0 Estimated GFR > 60 POC Glucose 102 Random Glucose 104 Lactic Acid Lactic Acid Fup @ 2Hr Lactic Acid Fup @ 4Hr Calcium 8.5 D Magnesium Total Bilirubin AST ALT Alkaline Phosphatase Ammonia Total Creatine Kinase Troponin I High Sens Total Protein Albumin Lipase Beta HCG, Quant Urine Color Urine Appearance Urine pH Ur Specific [place] Urine Protein Urine Glucose (UA) Urine Ketones Urine Blood Urine Nitrite Ur Leukocyte Esterase Urine RBC Urine WBC Ur Squamous Epith Cells Amorphous Sediment Urine Bacteria Urine Mucus Salicylates Urine Opiates Screen Acetaminophen Ur Barbiturates Screen Ur Phencyclidine Scrn Ur Amphetamines Screen U Benzodiazepines Scrn Urine Cocaine Screen U Marijuana (THC) Screen Ethyl Alcohol COVID-19 ([facility]) COVID-19 [employer] Com Quality Stroke Does the patient have a stroke diagnosis?: No VTE Prior VTE?: No VTE Risk Level:: Medical - moderate - high VTE Device Contraindication: Treatment Not Indicated VTE Drug Contraindication: N/A - Med Ordered Assessment and Plan (1) Drug overdose: Status: Acute (2) Encephalopathy: Status: Acute (3) Pneumonia: Status: Acute Assessment and Plan: 25-year-old female with past medical history of polysubstance abuse who presents to the hospital after friend and family found her on the floor semiconscious with drugs although around her. # Encephalopathy - most likely secondary to drug overdose, CT head negative for intracranial pathology - patient received multiple sedating medications therefore currently remain confused and starting to wake up - monitor mental status, re-evaluate once more awake -Addiction service is seeing #Drug Overdose - positive for opioids and cocaine - there is also possible self-harm behavior - in lead evaluation by care team/behavioral health once patient is more alert -should have sitter # pneumonia - most likely aspiration - seen on CT of the head - patient too combative and agitated and does not follow command for chest CT - will treat her for aspiration pneumonia - follow cultures #Rhabdomylosis--CPK of 10K, IVF and repat labs today DVT prophylaxis: Lovenox
--- NOTE | 2020-09-20 12:01 | MHC.CM.PN ---
Attempted to meet with patient in regards to discharge planning. Patient is currently lethargic. No family is present. Case Management assessment completed using medical record. Patient will stay in hotels or with family when she can. Patient has a long standing polysubstance abuse history. Patient is active with MAT at [facility]. Patient has no PCP and no HCP on file. Continue to monitor for d/c needs.
[2020-09-20 12:24] VITALS: BP 105/78; PULSE 82; RESP 30; O2SAT 99
--- NOTE | 2020-09-20 12:27 | PC.NURSE ---
Patient a little more alert then at the beginning of the shift. pt following directions more.
--- NOTE | 2020-09-20 13:12 | PC.NURSE ---
Pt more cooperative to have blood drawn. blood drawn and sent to the lab
[2020-09-20 13:24] LABS: Venous Blood Gas Refer to POC result
[2020-09-20 13:26] LABS: VBG Base Excess 1.5 mmol/L; VBG HCO3 22 mmol/L (22-26); VBG pCO2 23 mmHg; VBG pH 7.57 (7.32-7.43); VBG pO2 73 mmHg
--- NOTE | 2020-09-20 13:54 | PC.NURSE ---
Patient is awake, and speech is clear at this time. Significant other is at bedside. Pt eating a few bites of her lunch and drinking water.
--- NOTE | 2020-09-20 14:51 | PC.NURSE ---
Patient is asleep in bed currently. Respiratory rate continues to be elevated at 28 breaths per minute. Respirations are even and nonlabored. NO acute distress noted.
--- NOTE | 2020-09-20 15:40 | PC.NURSE ---
Pt is lying in bed with eyes closed in no distress. respirations are even and nonlabored but continue to be rapid.
--- NOTE | 2020-09-20 17:54 | MHC.CM.PN ---
CM met with sister, Lynda Smith ([phone]). Pt awake at times, c/o catheter. Not answering direct questions. Wants catheter removed. Will speak with RN. Lynda is very concerned about her sister, stating her sister has been abusing drugs, especially since their parents . Parents from overdoses. Pt is homeless according to Lynda and lives with a drug dealer. Lynda feels her sister has undiagnosed mental health issues, along with her polysubstance drug misuse. Lynda feels her sister needs to be section 12 and admitted in house psychiatrically. Explained to Lynda that when her sister is more awake and responsive, the Crisis Team with evaluate her from a psychiatric perspective. The recovery support team will also meet with her. CM will follow her for any d/c needs if her psych evaluation does not recommend admission to inhouse psych after she is medically cleared. Pt now is admitted to hospital. CM to follow for d/c needs.
--- NOTE | 2020-09-20 19:01 | PC.NURSE ---
Report called to ARIADNE Burger Pt will be going to room 473.
[2020-09-20 19:32] VITALS: BP 137/77; PULSE 73; RESP 20; TEMP 37.3; O2SAT 99
[2020-09-21] VITALS (8 sets, daily range): BP systolic 105–159; BP diastolic 58–103; PULSE 65–84; RESP 16–21; TEMP 36–37.4; O2SAT 94–99
[2020-09-21] MEDS: Ampicillin Sodium/Sulbactam Na 3 GM in 0.9 % Sodium Chloride 100 ML IV ×3 (00:13→16:19)
[2020-09-21] MEDS: 0.9 % Sodium Chloride Flush 3 ML SYRINGE IVFLUSH ×2 (00:14→21:07)
[2020-09-21] MEDS: Acetaminophen 325 MG TABLET 650 MG PO ×2 (03:32→21:04)
[2020-09-21] MEDS: Lactated Ringers 1,000 ML 150 ML IVCONT ×3 (03:34→21:07)
--- NOTE | 2020-09-21 03:45 | MHC.PIE ---
P.REQUEST SOMETHING FOR OPIATE WITHDRAWAL I.PT STATING SHE NEEDS SOMETHING FOR MY OPIATE WITHDRAWAL . NOTIFIED.NEW ORDERS FOR ATARAX 25MG PO Q 6HRS PRN AND CLONIDINE O.1MG PO TID PRN GIVEN.PT UPDATED AND MEDS GIVEN E.CONT TO MONITOR.
[2020-09-21] MEDS: cloNIDine HCL 0.1 MG TABLET PO ×3 (04:21→21:04)
[2020-09-21] MEDS: hydrOXYzine HCL 25 MG TABLET PO ×3 (04:21→21:04)
--- NOTE | 2020-09-21 08:17 | P.CDIC_ITS ---
CDI Concurrent Query Service Date: 09/21/20 Documentation Clarification: Please clarify if you are treating a proba ble/suspected/likely or confirmed: Sepsis, present on Admission No Sepsis Other, please specify Provider Response: Sepsis PLEASE DO NOT DELETE/MODIFY EXISTING CONTENT Additional information is needed in order to code to the highest accuracy and appropriate Severity of Illness (SOI). Please clarify the information noted below in your progress notes and discharge summary. Risk Factors/Clinical Indicators/Treatments WBC 18.6 T100.7, P 87, R 30, BP 129/85 LA 3.4 Per H&P: Aspiration Pneumonia Treated with IV antibiotic CDS: Dalia Broderick RN Contact Number: [phone] Please Review the information above and exercise your independent professional judgment in responding to the query. If you concur, pleas document in the PROGRESS NOTES and DISCHARGE SUMMARY. If you do not agree with the query, please document in the query above. THIS QUERY IS PART OF THE PERMANENT MEDICAL RECORD
[2020-09-21 08:20] LABS: Hematocrit 36.3 % (37-47); Hemoglobin 12.6 g/dl (12.0-16.0); Mean Corpuscular HGB Conc 34.7 g/dl (31.0-35.0); Mean Corpuscular Hemoglobin 30.9 pg (27.0-33.0); Mean Platelet Volume 9.5 fL (9.4-12.3); Platelet Count 230 X10*3/uL (160-400); Red Blood Count 4.08 X10*6/uL (4.20-5.50); Red Cell Distribution Width 12.4 % (11.0-16.0); White Blood Count 12.3 X10*3/uL (4.8-10.8)
[2020-09-21 09:00] LABS: Ammonia 46 umol/L (13-55)
--- NOTE | 2020-09-21 09:00 | MHC.RECOVRN ---
T/w met with pt to f/u regarding substance use and withdrawal symptoms. Pt reports feeling hot/cold, body aches, feeling sick. Pt would like to start Suboxone, has been on it in the past. Pt familiar with induction process and precipitated withdrawal. Pt does not recall when last substance use was, reports using heroin and cocaine, intranasal. Pt reports taking a handful of Benadryl prior to arrival. Pt is unsure if it was a SA, however, pts sister reports that it was. Discussed with Kay Marrero APRN, as well as made CARE Team aware of possible SA. Will continue to follow.
--- NOTE | 2020-09-21 09:58 | HO.PM.IMPN ---
Subjective Subjective Date of Service: 09/21/20 Interval History: Seen in f/u for drug overloda, aspiration pna/sepsis, and rhabdomylosis. She is more alert today, and cooperative Review of Systems Gen: no fever Resp: no sob, no cough CV: no chest, no PETERS, no leg edema GI: No n/v, no abd pain Neuro: No confusion Physical Exam Vital Signs: Vital Signs: Last Vital Signs Temp 97.8 F 09/21/20 06:45 Pulse 65 09/21/20 06:45 Resp 16 09/21/20 06:45 BP 147/88 H 09/21/20 06:45 Pulse Ox 98 09/21/20 06:45 Body Mass Index 20.5 Const: General: ill appearing and poor hygiene Orientation/consciousness: oriented to person, oriented to place and oriented to time Eyes: General: appearance normal, both eyes and all related structures Resp: Effort & Inspection: normal respiratory effort Auscultation: clear to auscultation bilaterally Cardio: Rate: regular rate Rhythm: regular rhythm GI: Palpation (GI): Soft to palpation Auscultation: normal bowel sounds Neuro: General: oriented to person, oriented to place and oriented to time Cognition (Neuro): normal cognition Extrem: General: Yes normal to inspection and Yes no pedal edema Objective Data Current Medications Generic Name Dose Route Start Last Admin Trade Name Rahatq PRN Reason Stop Dose Admin Acetaminophen 650 mg 09/19/20 23:52 09/21/20 03:32 Acetaminophen 325 Mg Tablet PO 650 mg Q6H PRN Administration Pain, Mild (Pain Scale 1-3) Acetaminophen 650 mg 09/19/20 23:52 Acetaminophen Supp 650 Mg Supp.Rect NM Q6H PRN Pain, Mild (Pain Scale 1-3) Buprenorphine/Naloxone 1 film 09/21/20 09:25 Buprenorphine/Naloxone 8/2 Mg Film SUBLINGUAL BID NAKUL Clonidine HCl 0.1 mg 09/21/20 03:50 09/21/20 04:21 Clonidine Hcl 0.1 Mg Tablet PO 0.1 mg TID PRN Administration anxiety Protocol Enoxaparin Sodium 40 mg 09/20/20 01:00 09/21/20 00:17 Enoxaparin Sodium 40 Mg/0.4 Ml Syringe SUBCUT Not Given Q24H NAKUL Hydroxyzine HCl 25 mg 09/21/20 03:50 09/21/20 04:21 Hydroxyzine Hcl 25 Mg Tablet PO 25 mg Q6H PRN Administration withdrawal sx Ampicillin Sodium/Sulbactam 100 mls @ 200 mls/hr 09/20/20 01:00 09/21/20 00:53 Sodium 3 gm/ Sodium Chloride IV Infused Q8H NAKUL Infusion Lactated Ringer's 1,000 mls @ 150 mls/hr 09/19/20 23:45 09/21/20 03:34 Lr IVCONT 150 mls/hr .Q6H40M NAKUL Administration Ondansetron HCl 4 mg 09/19/20 23:52 Ondansetron Hcl 4 Mg/2 Ml Vial IVPUSH Q8H PRN Nausea and Vomiting Sodium Chloride 3 ml 09/20/20 00:00 09/21/20 08:05 0.9 % Sodium Chloride Flush 3 Ml Syringe IVFLUSH Not Given QSHIFT [facility] Labs CBC & Chem 7: 09/21/20 08:03 09/20/20 06:52 Labs: Laboratory Results - last 24 hr 09/20/20 09/20/20 09/21/20 13:12 13:17 08:03 WBC RBC Hgb Hct MCV MCH MCHC RDW Plt Count MPV Absolute Nucleated RBC Nucleated RBC % (auto) VBG pH 7.57 H VBG pCO2 23 VBG pO2 73 VBG HCO3 22 VBG O2 Saturation 95.0 VBG Base Excess 1.5 Ammonia 46 Total Creatine Kinase 7732 H 09/21/20 09/21/20 08:03 08:03 WBC 12.3 H RBC 4.08 L Hgb 12.6 Hct 36.3 L MCV 89.0 MCH 30.9 MCHC 34.7 RDW 12.4 Plt Count 230 MPV 9.5 Absolute Nucleated RBC 0.000 Nucleated RBC % (auto) 0.0 VBG pH VBG pCO2 VBG pO2 VBG HCO3 VBG O2 Saturation VBG Base Excess Ammonia Total Creatine Kinase 3596 H D Microbiology Microbiology Results: Microbiology 09/19/20 14:46 Blood Culture - Preliminary Blood - Venous No growth after 24 hours. 09/19/20 14:09 Blood Culture - Preliminary Blood - Venous No growth after 24 hours. Quality Stroke Does the patient have a stroke diagnosis?: No VTE Prior VTE?: No VTE Risk Level:: Medical - moderate - high VTE Device Contraindication: Treatment Not Indicated VTE Drug Contraindication: N/A - Med Ordered Assessment and Plan (1) Drug overdose: Status: Acute (2) Encephalopathy: Status: Acute (3) Pneumonia: Status: Acute Assessment and Plan: 25-year-old female with past medical history of polysubstance abuse who presents to the hospital after friend and family found her on the floor semiconscious with drugs although around her. # Encephalopathy --resolved - most likely secondary to drug overdose, CT head negative for intracranial pathology - patient received multiple sedating medications therefore currently remain confused and starting to wake up - monitor mental status, re-evaluate once more awake -Addiction service is seeing #Drug Overdose - positive for opioids and cocaine - there is also possible self-harm behavior - in lead evaluation by care team/behavioral health once patient is more alert -should have sitter #Sepsis due to aspiration pneumonia, sepsis resolved. -Clinically responding to therapy -Continue IV Abx with Unasyn and when ready to discharge Augmentin #Rhabdomylosis--CPK of 10K and now down to 3596 #Opioid dependince--Addiction service following and has started on Suboxone DVT prophylaxis: Lovenox
[2020-09-21] MEDS: Buprenorphine/Naloxone 8/2 mg FILM 1 FILM SUBLINGUAL ×2 (10:23→21:04)
--- NOTE | 2020-09-21 12:00 | MHC.CARE ---
CARE Team is made aware by Janina from recovery support services that pt reportedly took an intentional Benadryl overdose. CARE Team recommends that once pt is medically cleared, she should be referred to N and CARE Team. If N is not able to see pt promptly, CARE Team can provide intervention to the patient.
--- NOTE | 2020-09-21 12:52 | MHC.RECOVRN ---
Met with pt to assess effectiveness of Suboxone. Pt reports feeling better, much brighter affect. Pts sister currently visiting. Will continue to follow.
--- NOTE | 2020-09-21 12:53 | MHC.CM.PN ---
Female 25 DX OD w Rhabdo and Aspiration. Janina Horvath as well as Kay Marrero have seen Pt today. Once medically cleared [facility]N will assess for SA and dispo. CM will follow.
[2020-09-21] MEDS: Mag&Al/Sim/Diphenhyd/Lidocaine 10 ML ORAL.SUSP PO (13:40)
--- NOTE | 2020-09-21 14:10 | HO.ADDICT_ITS ---
History of Present Illness Date of Service: 09/21/2020 Chief Complaint: Aspiration, rhabdo, drug overdose Reason for Consult: OUD Requesting physician: Rip Marie Discussed with referring provider: Yes Sources of Information: patient interviewed and chart reviewed HPI Narrative: Patient is a 25 year old female with history of OUD, alcohol use disorder and cocaine use. Currently medically admitted with rhabdo, pneumonia and (resolving) encephalopathy--secondary to substance use. Patient seen in room 473. She was in recliner, eyes closed, lethargic, providing minimal answers to questions--but answering appropriately. Mentation much improved from yesterday and the day before when she was completely obtunded then awake and incoherent. Patient reporting opioid withdrawal sx and requesting suboxone. Patient known to this writer technical publications via outpatient treatment for OUD. She has been using substances for approximately 3-5 years. Has presented to the ED numerous t imes for altered mental status after being found wandering the streets, or sustaining injuries secondary to substance use. Patient has trialed suboxone several times, but has not been able to remain engaged in treatment for greater than 2-3 weeks. Does have history of one section [address] admission and one detox admission Collateral obtained from sister: Patient began using heroin about 3 years ago following the of both her parents. Per sister, patient continues to stay in parents home, with no running water or electricity. Sister also states that patient has been involved with a man who was friends with her father and this is who supplies her drugs. Sister states that patient told her she was tired of living the way that she was living and wanted to and that is why she took Benadryl. Of note, patient also reported to RS RN that she took a handful of Benadryl and when asked if it was intentional, declined to answer. Past Psychiatric History: Denies Medical Evaluation Reviewed: Yes Personal & Social History: per sister: -squatting in her parents home (no water or electricity) -both parets Review of Systems Constitutional: Reports body ache(s), Reports chills, Reports fatigue, Reports lethargy, Reports malaise and Reports weakness Cardiovascular: Reports dyspnea Respiratory: Reports dyspnea Gastrointestinal: Denies loose stools, Denies nausea and Denies vomiting Musculoskeletal: Reports myalgias and Reports arthralgias Reports weakness Psychiatric: Reports anxiety and Reports depression Endocrine: Reports fatigue Diagnostics Vital Signs (24Hr): Vital Signs - 24 hr 09/20/20 19:32 09/21/20 00:00 09/21/20 04:00 Temperature 99.2 F 98.3 F Pulse Rate 73 74 70 Respiratory Rate 20 20 Blood Pressure 137/77 159/103 H Pulse Oximetry 99 99 09/21/20 04:21 09/21/20 06:45 09/21/20 10:47 Temperature 97.8 F 98 F Pulse Rate 65 78 Respiratory Rate 16 18 Blood Pressure 159/103 H 147/88 H 125/82 Pulse Oximetry 98 96 Body Mass Index 20.5 Labs Results: 09/21/20 08:03 09/20/20 06:52 Labs: Laboratory Results - last 48 hr 09/19/20 09/19/20 09/19/20 00:00 14:09 14:09 WBC 18.6 H RBC 4.49 Hgb 13.9 Hct 40.6 MCV 90.4 MCH 31.0 MCHC 34.2 RDW 12.1 Plt Count 262 MPV 9.5 Immature Gran % (Auto) 0.4 Neut % (Auto) 93.2 H Lymph % (Auto) 3.8 L [place] % (Auto) 2.4 Eos % (Auto) 0.0 Baso % (Auto) 0.2 Lymph # (Auto) 0.7 L [place] # (Auto) 0.5 Eos # (Auto) 0.0 Baso # (Auto) 0.0 Abs Immat Gran (auto) 0.07 H Absolute Neuts (auto) 17.3 H Absolute Nucleated RBC 0.000 Nucleated RBC % (auto) 0.0 Smear Tech's Comments VERIFIED Hold Purple Top PT 12.8 INR 1.1 VBG pH VBG pCO2 VBG pO2 VBG HCO3 VBG O2 Saturation VBG Base Excess Sodium Potassium Chloride Carbon Dioxide Anion Gap BUN Creatinine Estim Creat Clear Calc Estimated GFR POC Glucose Random Glucose Lactic Acid Lactic Acid Fup @ 2Hr Lactic Acid Fup @ 4Hr Calcium Magnesium Total Bilirubin AST ALT Alkaline Phosphatase Ammonia Total Creatine Kinase Troponin I High Sens Total Protein Albumin Lipase Beta HCG, Quant Urine Color Urine Appearance Urine pH Ur Specific [place] Urine Protein Urine Glucose (UA) Urine Ketones Urine Blood Urine Nitrite Ur Leukocyte Esterase Urine RBC Urine WBC Ur Squamous Epith Cells Amorphous Sediment Urine Bacteria Urine Mucus Salicylates Urine Opiates Screen Acetaminophen Ur Barbiturates Screen Ur Phencyclidine Scrn Ur Amphetamines Screen U Benzodiazepines Scrn Urine Cocaine Screen U Marijuana (THC) Screen Ethyl Alcohol COVID-19 ([facility]) Negative COVID-19 Locationary See Note 09/19/20 09/19/20 09/19/20 14:09 14:09 14:09 WBC RBC Hgb Hct MCV MCH MCHC RDW Plt Count MPV Immature Gran % (Auto) Neut % (Auto) Lymph % (Auto) [place] % (Auto) Eos % (Auto) Baso % (Auto) Lymph # (Auto) [place] # (Auto) Eos # (Auto) Baso # (Auto) Abs Immat Gran (auto) Absolute Neuts (auto) Absolute Nucleated RBC Nucleated RBC % (auto) Smear Tech's Comments Hold Purple Top SEE NOTE PT INR VBG pH VBG pCO2 VBG pO2 VBG HCO3 VBG O2 Saturation VBG Base Excess Sodium 139 Potassium 3.3 D Chloride 101 Carbon Dioxide 19 L Anion Gap 22 H BUN 13 Creatinine 0.95 Estim Creat Clear Calc 78.5 Estimated GFR > 60 POC Glucose Random Glucose 73 Lactic Acid Lactic Acid Fup @ 2Hr Lactic Acid Fup @ 4Hr Calcium 9.1 Magnesium 2.6 Total Bilirubin 0.2 AST 82 H ALT 30 Alkaline Phosphatase 88 Ammonia Total Creatine Kinase Troponin I High Sens Total Protein 8.9 H Albumin 5.0 Lipase 26 Beta HCG, Quant < 2 Urine Color Urine Appearance Urine pH Ur Specific [place] Urine Protein Urine Glucose (UA) Urine Ketones Urine Blood Urine Nitrite Ur Leukocyte Esterase Urine RBC Urine WBC Ur Squamous Epith Cells Amorphous Sediment Urine Bacteria Urine Mucus Salicylates Urine Opiates Screen Acetaminophen Ur Barbiturates Screen Ur Phencyclidine Scrn Ur Amphetamines Screen U Benzodiazepines Scrn Urine Cocaine Screen U Marijuana (THC) Screen Ethyl Alcohol COVID-19 ([facility]) COVID-19 Locationary 09/19/20 09/19/20 09/19/20 14:09 14:09 14:10 WBC RBC Hgb Hct MCV MCH MCHC RDW Plt Count MPV Immature Gran % (Auto) Neut % (Auto) Lymph % (Auto) [place] % (Auto) Eos % (Auto) Baso % (Auto) Lymph # (Auto) [place] # (Auto) Eos # (Auto) Baso # (Auto) Abs Immat Gran (auto) Absolute Neuts (auto) Absolute Nucleated RBC Nucleated RBC % (auto) Smear Tech's Comments Hold Purple Top PT INR VBG pH VBG pCO2 VBG pO2 VBG HCO3 VBG O2 Saturation VBG Base Excess Sodium Potassium Chloride Carbon Dioxide Anion Gap BUN Creatinine Estim Creat Clear Calc Estimated GFR POC Glucose Random Glucose Lactic Acid 3.4 H* Lactic Acid Fup @ 2Hr Lactic Acid Fup @ 4Hr Calcium Magnesium Total Bilirubin AST ALT Alkaline Phosphatase Ammonia Total Creatine Kinase Troponin I High Sens Total Protein Albumin Lipase Beta HCG, Quant Urine Color Urine Appearance Urine pH Ur Specific [place] Urine Protein Urine Glucose (UA) Urine Ketones Urine Blood Urine Nitrite Ur Leukocyte Esterase Urine RBC Urine WBC Ur Squamous Epith Cells Amorphous Sediment Urine Bacteria Urine Mucus Salicylates < 5.0 L Urine Opiates Screen Acetaminophen 23 Ur Barbiturates Screen Ur Phencyclidine Scrn Ur Amphetamines Screen U Benzodiazepines Scrn Urine Cocaine Screen U Marijuana (THC) Screen Ethyl Alcohol < 10 COVID-19 ([facility]) COVID-19 Capical Com 09/19/20 09/19/20 09/19/20 14:10 15:47 15:47 WBC RBC Hgb Hct MCV MCH MCHC RDW Plt Count MPV Immature Gran % (Auto) Neut % (Auto) Lymph % (Auto) [place] % (Auto) Eos % (Auto) Baso % (Auto) Lymph # (Auto) [place] # (Auto) Eos # (Auto) Baso # (Auto) Abs Immat Gran (auto) Absolute Neuts (auto) Absolute Nucleated RBC Nucleated RBC % (auto) Smear Tech's Comments Hold Purple Top PT INR VBG pH VBG pCO2 VBG pO2 VBG HCO3 VBG O2 Saturation VBG Base Excess Sodium Potassium Chloride Carbon Dioxide Anion Gap BUN Creatinine Estim Creat Clear Calc Estimated GFR POC Glucose Random Glucose Lactic Acid Lactic Acid Fup @ 2Hr Lactic Acid Fup @ 4Hr Calcium Magnesium Total Bilirubin AST ALT Alkaline Phosphatase Ammonia 23 Total Creatine Kinase Troponin I High Sens Total Protein Albumin Lipase Beta HCG, Quant Urine Color YELLOW Urine Appearance CLEAR Urine pH 6.0 Ur Specific [place] >= 1.030 H Urine Protein TRACE Urine Glucose (UA) NEG Urine Ketones NEG Urine Blood 1+ H Urine Nitrite NEG Ur Leukocyte Esterase NEG Urine RBC 0-2 Urine WBC 0 Ur Squamous Epith Cells 1+ Amorphous Sediment TRACE Urine Bacteria TRACE Urine Mucus TRACE Salicylates Urine Opiates Screen POSITIVE H Acetaminophen Ur Barbiturates Screen Not Detected Ur Phencyclidine Scrn Not Detected Ur Amphetamines Screen Not Detected U Benzodiazepines Scrn Not Detected Urine Cocaine Screen POSITIVE H U Marijuana (THC) Screen Not Detected Ethyl Alcohol COVID-19 ([facility]) COVID-19 Locationary 09/19/20 09/19/20 09/19/20 16:53 17:00 17:00 WBC RBC Hgb Hct MCV MCH MCHC RDW Plt Count MPV Immature Gran % (Auto) Neut % (Auto) Lymph % (Auto) [place] % (Auto) Eos % (Auto) Baso % (Auto) Lymph # (Auto) [place] # (Auto) Eos # (Auto) Baso # (Auto) Abs Immat Gran (auto) Absolute Neuts (auto) Absolute Nucleated RBC Nucleated RBC % (auto) Smear Tech's Comments Hold Purple Top PT INR VBG pH VBG pCO2 VBG pO2 VBG HCO3 VBG O2 Saturation VBG Base Excess Sodium 141 Potassium 3.5 Chloride 112 H Carbon Dioxide 13 L Anion Gap 20 BUN 12 Creatinine 0.83 Estim Creat Clear Calc 89.8 Estimated GFR > 60 POC Glucose 86 Random Glucose 94 Lactic Acid Lactic Acid Fup @ 2Hr 3.1 H* Lactic Acid Fup @ 4Hr Calcium 8.0 L D Magnesium Total Bilirubin 0.3 AST 103 H ALT 29 Alkaline Phosphatase 73 Ammonia Total Creatine Kinase 94230 H Troponin I High Sens Total Protein 7.5 Albumin 4.2 Lipase Beta HCG, Quant Urine Color Urine Appearance Urine pH Ur Specific [place] Urine Protein Urine Glucose (UA) Urine Ketones Urine Blood Urine Nitrite Ur Leukocyte Esterase Urine RBC Urine WBC Ur Squamous Epith Cells Amorphous Sediment Urine Bacteria Urine Mucus Salicylates < 5.0 L Urine Opiates Screen Acetaminophen 16 Ur Barbiturates Screen Ur Phencyclidine Scrn Ur Amphetamines Screen U Benzodiazepines Scrn Urine Cocaine Screen U Marijuana (THC) Screen Ethyl Alcohol COVID-19 ([facility]) COVID-19 Locationary 09/19/20 09/19/20 09/19/20 17:00 17:05 18:04 WBC 17.5 H RBC 4.04 L Hgb 12.7 Hct 36.0 L MCV 89.1 MCH 31.4 MCHC 35.3 H RDW 12.1 Plt Count 244 MPV 9.6 Immature Gran % (Auto) 0.4 Neut % (Auto) 91.6 H Lymph % (Auto) 5.6 L [place] % (Auto) 2.2 Eos % (Auto) 0.0 Baso % (Auto) 0.2 Lymph # (Auto) 1.0 L [place] # (Auto) 0.4 Eos # (Auto) 0.0 Baso # (Auto) 0.0 Abs Immat Gran (auto) 0.07 H Absolute Neuts (auto) 16.0 H Absolute Nucleated RBC 0.000 Nucleated RBC % (auto) 0.0 Smear Tech's Comments Hold Purple Top PT INR VBG pH 7.37 VBG pCO2 23 VBG pO2 110 VBG HCO3 14 L VBG O2 Saturation 98.0 VBG Base Excess -9.2 Sodium Potassium Chloride Carbon Dioxide Anion Gap BUN Creatinine Estim Creat Clear Calc Estimated GFR POC Glucose Random Glucose Lactic Acid Lactic Acid Fup @ 2Hr Lactic Acid Fup @ 4Hr Calcium Magnesium Total Bilirubin AST ALT Alkaline Phosphatase Ammonia Total Creatine Kinase Troponin I High Sens < 3.5 Total Protein Albumin Lipase Beta HCG, Quant Urine Color Urine Appearance Urine pH Ur Specific [place] Urine Protein Urine Glucose (UA) Urine Ketones Urine Blood Urine Nitrite Ur Leukocyte Esterase Urine RBC Urine WBC Ur Squamous Epith Cells Amorphous Sediment Urine Bacteria Urine Mucus Salicylates Urine Opiates Screen Acetaminophen Ur Barbiturates Screen Ur Phencyclidine Scrn Ur Amphetamines Screen U Benzodiazepines Scrn Urine Cocaine Screen U Marijuana (THC) Screen Ethyl Alcohol COVID-19 ([facility]) COVID-19 Clin Com 09/19/20 09/19/20 09/19/20 19:23 19:39 19:39 WBC RBC Hgb Hct MCV MCH MCHC RDW Plt Count MPV Immature Gran % (Auto) Neut % (Auto) Lymph % (Auto) [place] % (Auto) Eos % (Auto) Baso % (Auto) Lymph # (Auto) [place] # (Auto) Eos # (Auto) Baso # (Auto) Abs Immat Gran (auto) Absolute Neuts (auto) Absolute Nucleated RBC Nucleated RBC % (auto) Smear Tech's Comments Hold Purple Top PT INR VBG pH VBG pCO2 VBG pO2 VBG HCO3 VBG O2 Saturation VBG Base Excess Sodium 141 Potassium 3.4 Chloride 113 H Carbon Dioxide 15 L Anion Gap 16 BUN 12 Creatinine 0.78 Estim Creat Clear Calc 95.5 Estimated GFR > 60 POC Glucose 97 Random Glucose 103 Lactic Acid Lactic Acid Fup @ 2Hr Lactic Acid Fup @ 4Hr 1.6 Calcium 7.7 L Magnesium Total Bilirubin AST ALT Alkaline Phosphatase Ammonia Total Creatine Kinase 93245 H Troponin I High Sens Total Protein Albumin Lipase Beta HCG, Quant < 2 Urine Color Urine Appearance Urine pH Ur Specific [place] Urine Protein Urine Glucose (UA) Urine Ketones Urine Blood Urine Nitrite Ur Leukocyte Esterase Urine RBC Urine WBC Ur Squamous Epith Cells Amorphous Sediment Urine Bacteria Urine Mucus Salicylates Urine Opiates Screen Acetaminophen Ur Barbiturates Screen Ur Phencyclidine Scrn Ur Amphetamines Screen U Benzodiazepines Scrn Urine Cocaine Screen U Marijuana (THC) Screen Ethyl Alcohol COVID-19 ([facility]) COVID-19 Clin Com 09/20/20 09/20/20 09/20/20 06:52 06:52 07:35 WBC 14.7 H RBC 3.70 L Hgb 11.5 L Hct 33.6 L MCV 90.8 MCH 31.1 MCHC 34.2 RDW 12.7 Plt Count 245 MPV 9.6 Immature Gran % (Auto) 0.3 Neut % (Auto) 82.9 H Lymph % (Auto) 12.7 L [place] % (Auto) 3.8 Eos % (Auto) 0.1 Baso % (Auto) 0.2 Lymph # (Auto) 1.9 [place] # (Auto) 0.6 Eos # (Auto) 0.0 Baso # (Auto) 0.0 Abs Immat Gran (auto) 0.05 H Absolute Neuts (auto) 12.2 H Absolute Nucleated RBC 0.000 Nucleated RBC % (auto) 0.0 Smear Tech's Comments Hold Purple Top PT INR VBG pH VBG pCO2 VBG pO2 VBG HCO3 VBG O2 Saturation VBG Base Excess Sodium 143 Potassium 3.9 Chloride 112 H Carbon Dioxide 19 L Anion Gap 16 BUN 13 Creatinine 0.81 Estim Creat Clear Calc 92.0 Estimated GFR > 60 POC Glucose 102 Random Glucose 104 Lactic Acid Lactic Acid Fup @ 2Hr Lactic Acid Fup @ 4Hr Calcium 8.5 D Magnesium Total Bilirubin AST ALT Alkaline Phosphatase Ammonia Total Creatine Kinase Troponin I High Sens Total Protein Albumin Lipase Beta HCG, Quant Urine Color Urine Appearance Urine pH Ur Specific [place] Urine Protein Urine Glucose (UA) Urine Ketones Urine Blood Urine Nitrite Ur Leukocyte Esterase Urine RBC Urine WBC Ur Squamous Epith Cells Amorphous Sediment Urine Bacteria Urine Mucus Salicylates Urine Opiates Screen Acetaminophen Ur Barbiturates Screen Ur Phencyclidine Scrn Ur Amphetamines Screen U Benzodiazepines Scrn Urine Cocaine Screen U Marijuana (THC) Screen Ethyl Alcohol COVID-19 ([facility]) COVID-19 Clin Com 09/20/20 09/20/20 09/21/20 13:12 13:17 08:03 WBC RBC Hgb Hct MCV MCH MCHC RDW Plt Count MPV Immature Gran % (Auto) Neut % (Auto) Lymph % (Auto) [place] % (Auto) Eos % (Auto) Baso % (Auto) Lymph # (Auto) [place] # (Auto) Eos # (Auto) Baso # (Auto) Abs Immat Gran (auto) Absolute Neuts (auto) Absolute Nucleated RBC Nucleated RBC % (auto) Smear Tech's Comments Hold Purple Top PT INR VBG pH 7.57 H VBG pCO2 23 VBG pO2 73 VBG HCO3 22 VBG O2 Saturation 95.0 VBG Base Excess 1.5 Sodium Potassium Chloride Carbon Dioxide Anion Gap BUN Creatinine Estim Creat Clear Calc Estimated GFR POC Glucose Random Glucose Lactic Acid Lactic Acid Fup @ 2Hr Lactic Acid Fup @ 4Hr Calcium Magnesium Total Bilirubin AST ALT Alkaline Phosphatase Ammonia 46 Total Creatine Kinase 7732 H Troponin I High Sens Total Protein Albumin Lipase Beta HCG, Quant Urine Color Urine Appearance Urine pH Ur Specific [place] Urine Protein Urine Glucose (UA) Urine Ketones Urine Blood Urine Nitrite Ur Leukocyte Esterase Urine RBC Urine WBC Ur Squamous Epith Cells Amorphous Sediment Urine Bacteria Urine Mucus Salicylates Urine Opiates Screen Acetaminophen Ur Barbiturates Screen Ur Phencyclidine Scrn Ur Amphetamines Screen U Benzodiazepines Scrn Urine Cocaine Screen U Marijuana (THC) Screen Ethyl Alcohol COVID-19 ([facility]) COVID-19 Clin Com 09/21/20 09/21/20 08:03 08:03 WBC 12.3 H RBC 4.08 L Hgb 12.6 Hct 36.3 L MCV 89.0 MCH 30.9 MCHC 34.7 RDW 12.4 Plt Count 230 MPV 9.5 Immature Gran % (Auto) Neut % (Auto) Lymph % (Auto) [place] % (Auto) Eos % (Auto) Baso % (Auto) Lymph # (Auto) [place] # (Auto) Eos # (Auto) Baso # (Auto) Abs Immat Gran (auto) Absolute Neuts (auto) Absolute Nucleated RBC 0.000 Nucleated RBC % (auto) 0.0 Smear Tech's Comments Hold Purple Top PT INR VBG pH VBG pCO2 VBG pO2 VBG HCO3 VBG O2 Saturation VBG Base Excess Sodium Potassium Chloride Carbon Dioxide Anion Gap BUN Creatinine Estim Creat Clear Calc Estimated GFR POC Glucose Random Glucose Lactic Acid Lactic Acid Fup @ 2Hr Lactic Acid Fup @ 4Hr Calcium Magnesium Total Bilirubin AST ALT Alkaline Phosphatase Ammonia Total Creatine Kinase 3596 H D Troponin I High Sens Total Protein Albumin Lipase Beta HCG, Quant Urine Color Urine Appearance Urine pH Ur Specific [place] Urine Protein Urine Glucose (UA) Urine Ketones Urine Blood Urine Nitrite Ur Leukocyte Esterase Urine RBC Urine WBC Ur Squamous Epith Cells Amorphous Sediment Urine Bacteria Urine Mucus Salicylates Urine Opiates Screen Acetaminophen Ur Barbiturates Screen Ur Phencyclidine Scrn Ur Amphetamines Screen U Benzodiazepines Scrn Urine Cocaine Screen U Marijuana (THC) Screen Ethyl Alcohol COVID-19 ([facility]) COVID-19 Clin Com Imaging Radiology Impressions: ITS Impressions Cervical Spine CT 09/19/20 15:01 IMPRESSION: Exam is significantly motion degraded. Within the limitations of this exam, there is no evidence of acute intracranial hemorrhage or edematous territorial infarction. No evidence of acute fracture or subluxation of the cervical spine. Moderate multifocal airspace opacities in the visualized upper lungs suggestive of an active infectious/inflammatory process. Head CT 09/19/20 15:01 IMPRESSION: Exam is significantly motion degraded. Within the limitations of this exam, there is no evidence of acute intracranial hemorrhage or edematous territorial infarction. No evidence of acute fracture or subluxation of the cervical spine. Moderate multifocal airspace opacities in the visualized upper lungs suggestive of an active infectious/inflammatory process. Chest X-Ray 09/19/20 17:30 IMPRESSION: No acute intrathoracic disease. Chest CT 09/20/20 09:50 IMPRESSION: Bilateral posterior segment upper lobe, superior and posterior basilar segments lower lobe parenchymal opacities likely dependent aspiration pneumonia. There is no lung nodule or mass seen. No abnormal size mediastinal or axillary lymphadenopathy. Mental Status Exam Mental Status Exam Patient Appearance: Well Grooomed (at time of admission, unkempt, multiple abrasions to face) Level of Consciousness: Drowsy, Follows Commands and Lethargic Patient Behavior: Appropriate and Fatigued Mood Description: Calm Affect Description: Calm Ability to Follow Directions: Good Speech Pattern: Soft-Spoken Thought Process: Linear Thought Content: positive for Linear Judgement: Fair Medications Medications Current Medications Generic Name Dose Route Start Last Admin Trade Name Freq PRN Reason Stop Dose Admin Acetaminophen 650 mg 09/19/20 23:52 09/21/20 03:32 Acetaminophen 325 Mg Tablet PO 650 mg Q6H PRN Administration Pain, Mild (Pain Scale 1-3) Acetaminophen 650 mg 09/19/20 23:52 Acetaminophen Supp 650 Mg Supp.Rect CO Q6H PRN Pain, Mild (Pain Scale 1-3) Buprenorphine/Naloxone 1 film 09/21/20 09:25 09/21/20 10:23 Buprenorphine/Naloxone 8/2 Mg Film SUBLINGUAL 1 film BID NAKUL Administration Clonidine HCl 0.1 mg 09/21/20 03:50 09/21/20 13:21 Clonidine Hcl 0.1 Mg Tablet PO 0.1 mg TID PRN Administration anxiety Protocol Enoxaparin Sodium 40 mg 09/20/20 01:00 09/21/20 00:17 Enoxaparin Sodium 40 Mg/0.4 Ml Syringe SUBCUT Not Given Q24H NAKUL Hydroxyzine HCl 25 mg 09/21/20 03:50 09/21/20 13:22 Hydroxyzine Hcl 25 Mg Tablet PO 25 mg Q6H PRN Administration withdrawal sx Ampicillin Sodium/Sulbactam 100 mls @ 200 mls/hr 09/20/20 01:00 09/21/20 11:24 Sodium 3 gm/ Sodium Chloride IV Infused Q8H NAKUL Infusion Lactated Ringer's 1,000 mls @ 150 mls/hr 09/19/20 23:45 09/21/20 10:29 Lr IVCONT 150 mls/hr .Q6H40M NAKUL Administration Lidocaine/Diphenhydr/Alum/Mg/Simeth 10 ml 09/21/20 13:19 09/21/20 13:40 Mag&Al/Sim/Diphenhyd/Lidocaine 10 Ml Oral.Susp PO 10 ml Q6H PRN Administration soreness Protocol Ondansetron HCl 4 mg 09/19/20 23:52 Ondansetron Hcl 4 Mg/2 Ml Vial IVPUSH Q8H PRN Nausea and Vomiting Sodium Chloride 3 ml 09/20/20 00:00 09/21/20 08:05 0.9 % Sodium Chloride Flush 3 Ml Syringe IVFLUSH Not Given QSHIFT [facility] Allergies Allergies Allergy/AdvReac Type Severity Reaction Status Date / Time bee venom protein (honey bee) Allergy Intermediate Localized Verified 08/04/20 07:20 swelling near sting Assessment & Plan Assessment & Plan (1) Opioid use disorder: Status: Acute Code(s): F11.99 - Opioid use, unspecified with unspecified opioid-induced disorder Recommendations: * will restart suboxone at 8mg BID (what was previously ordered outpatient per Pati). 1st dose given with good effect. * Discussed concerns related to reported intentional OD with hospitalist and crisis eval will need to be completed prior to discharge * Discussed concerns with sister and encouraged her to remain involved/supportive with patient as patient allows * Discussed case with Recovery Support RN who will continue to follow up as needed * If patient is sedated and NOT complaining of withdrawal sx, it is okay to hold PM dose of suboxone. * Will continue to follow 60 minutes spent with seeing, coordinating patient care Greater than 50% of the session was spent on counseling and/or coordination of care PMFSH Past Medical History Medical History Substance abuse Family History Pertinent family history: both mother and father both parents with substance use disorders Social History Social History Household Members: None Housing: Apartment Unable to assess alcohol history related to: Refusing to respond Patient Tobacco Use Status: Current someday Tobacco user Tobacco use type: Cigarette Cigarette Packs Per Day: 1.5 Cigarettes Per Day: 30.0 Smoked in Last 30 Days: No Use of substances other than those prescribed or required for medical reasons: Refusing to respond Substance Use Type: Crack/Cocaine Currently Displaying Signs/Symptoms of Drug Intoxication Withdrawal: Yes Advance Directives: No Advance Directives Information Provided: No Advance Directives on File: No Do you have thoughts of harming others: None Do you have a plan to hurt others: No Plan Recently lost weight without trying: Unsure Nutrition Risks: No Nutritional Risk Patient : No : No Poor oral hygiene: Yes service: No Current occupational status: unemployed
[2020-09-22] MEDS: Ampicillin Sodium/Sulbactam Na 3 GM in 0.9 % Sodium Chloride 100 ML IV ×2 (00:01→09:12)
[2020-09-22] MEDS: hydrOXYzine HCL 25 MG TABLET PO (03:57)
[2020-09-22] MEDS: Lactated Ringers 1,000 ML 150 ML IVCONT ×2 (03:57→13:00)
[2020-09-22 03:58] VITALS: BP 100/53; PULSE 59; RESP 18; TEMP 36.8; O2SAT 100
[2020-09-22 04:00] VITALS: TEMP 36.8
[2020-09-22 06:47] LABS: Hematocrit 35.2 % (37-47); Hemoglobin 11.7 g/dl (12.0-16.0); Mean Corpuscular HGB Conc 33.2 g/dl (31.0-35.0); Mean Corpuscular Hemoglobin 30.7 pg (27.0-33.0); Mean Corpuscular Volume 92.4 fL (80-98); Platelet Count 217 X10*3/uL (160-400); Red Blood Count 3.81 X10*6/uL (4.20-5.50); Red Cell Distribution Width 12.9 % (11.0-16.0); White Blood Count 9.8 X10*3/uL (4.8-10.8)
[2020-09-22 06:55] LABS: Anion Gap 11 (12-20); Blood Urea Nitrogen 12 mg/dL (9-16); Calcium 8.3 mg/dL (8.4-10.2); Carbon Dioxide 21 mmol/L (22-29); Chloride 111 mmol/L (96-108); Creatinine Clr Calc Pharmacy 124.2; Estimated Glomerular Filt Rate > 60; Glucose Random 101 mg/dL (60-115); Sodium 139 mmol/L (135-145)
[2020-09-22 06:57] VITALS: BP 105/63; PULSE 65; RESP 16; TEMP 37.1; O2SAT 98
[2020-09-22] MEDS: Buprenorphine/Naloxone 8/2 mg FILM 1 FILM SUBLINGUAL (08:58)
--- NOTE | 2020-09-22 10:00 | MHC.RECOVRN ---
Met with pt to f/u regarding Suboxone. Pt received second dose yesterday evening with positive effect. Pt bright and cheerful this morning, hoping to go home and stay healthy. CARE Team in to speak with pt at this time.
--- NOTE | 2020-09-22 10:47 | P.PNIM_ITS ---
Subjective Subjective Date of Service: 09/22/20 Interval History: Seen in f/u for drug overloda, aspiration pna/sepsis, and rhabdomylosis. She is alert and cooperative and tells me she took Benadryl to sleep Review of Systems Gen: no fever Resp: no sob, no cough CV: no chest, no PETERS, no leg edema GI: No n/v, no abd pain Neuro: No confusion Physical Exam Vital Signs: Vital Signs: Last Vital Signs Temp 98.7 F 09/22/20 06:57 Pulse 65 09/22/20 06:57 Resp 16 09/22/20 06:57 BP 105/63 09/22/20 06:57 Pulse Ox 98 09/22/20 06:57 Body Mass Index 20.5 Const: General: ill appearing and poor hygiene Orientation/consciousness: oriented to person, oriented to place and oriented to time Eyes: General: appearance normal, both eyes and all related structures Resp: Effort & Inspection: normal respiratory effort Auscultation: clear to auscultation bilaterally Cardio: Rate: regular rate Rhythm: regular rhythm GI: Palpation (GI): Soft to palpation Auscultation: normal bowel sounds Neuro: General: oriented to person, oriented to place and oriented to time Cognition (Neuro): normal cognition Extrem: General: Yes normal to inspection and Yes no pedal edema Objective Data Current Medications Generic Name Dose Route Start Last Admin Trade Name Freq PRN Reason Stop Dose Admin Acetaminophen 650 mg 09/19/20 23:52 09/21/20 21:04 Acetaminophen 325 Mg Tablet PO 650 mg Q6H PRN Administration Pain, Mild (Pain Scale 1-3) Acetaminophen 650 mg 09/19/20 23:52 Acetaminophen Supp 650 Mg Supp.Rect PA Q6H PRN Pain, Mild (Pain Scale 1-3) Buprenorphine/Naloxone 1 film 09/21/20 09:25 09/22/20 08:58 Buprenorphine/Naloxone 8/2 Mg Film SUBLINGUAL 1 film BID NAKUL Administration Clonidine HCl 0.1 mg 09/21/20 03:50 09/21/20 21:04 Clonidine Hcl 0.1 Mg Tablet PO 0.1 mg TID PRN Administration anxiety Protocol Enoxaparin Sodium 40 mg 09/20/20 01:00 09/22/20 00:01 Enoxaparin Sodium 40 Mg/0.4 Ml Syringe SUBCUT Not Given Q24H NAKUL Hydroxyzine HCl 25 mg 09/21/20 03:50 09/22/20 03:57 Hydroxyzine Hcl 25 Mg Tablet PO 25 mg Q6H PRN Administration withdrawal sx Ampicillin Sodium/Sulbactam 100 mls @ 200 mls/hr 09/20/20 01:00 09/22/20 09:46 Sodium 3 gm/ Sodium Chloride IV Infused Q8H [facility] Infusion Lactated Ringer's 1,000 mls @ 150 mls/hr 09/19/20 23:45 09/22/20 05:40 Lr IVCONT Not Given .Q6H40M NAKUL Lidocaine/Diphenhydr/Alum/Mg/Simeth 10 ml 09/21/20 13:19 09/21/20 13:40 Mag&Al/Sim/Diphenhyd/Lidocaine 10 Ml Oral.Susp PO 10 ml Q6H PRN Administration soreness Protocol Ondansetron HCl 4 mg 09/19/20 23:52 Ondansetron Hcl 4 Mg/2 Ml Vial IVPUSH Q8H PRN Nausea and Vomiting Sodium Chloride 3 ml 09/20/20 00:00 09/22/20 07:38 0.9 % Sodium Chloride Flush 3 Ml Syringe IVFLUSH Not Given QSHIFT [facility] Labs CBC & Chem 7: 09/22/20 05:42 09/22/20 05:42 Labs: Laboratory Results - last 24 hr 09/22/20 09/22/20 09/22/20 05:42 05:42 05:42 WBC 9.8 RBC 3.81 L Hgb 11.7 L Hct 35.2 L MCV 92.4 MCH 30.7 MCHC 33.2 RDW 12.9 Plt Count 217 MPV 10.0 Absolute Nucleated RBC 0.000 Nucleated RBC % (auto) 0.0 Sodium 139 Potassium 4.0 Chloride 111 H Carbon Dioxide 21 L Anion Gap 11 L BUN 12 Creatinine 0.60 Estim Creat Clear Calc 124.2 Estimated GFR > 60 Random Glucose 101 Calcium 8.3 L Total Creatine Kinase 2748 H Microbiology Microbiology Results: Microbiology 09/19/20 14:46 Blood Culture - Preliminary Blood - Venous No growth after 48 hours. 09/19/20 14:09 Blood Culture - Preliminary Blood - Venous No growth after 48 hours. Quality Stroke Does the patient have a stroke diagnosis?: No VTE Prior VTE?: No VTE Risk Level:: Medical - moderate - high VTE Device Contraindication: Treatment Not Indicated VTE Drug Contraindication: N/A - Med Ordered Assessment and Plan (1) Drug overdose: Status: Acute (2) Encephalopathy: Status: Acute (3) Pneumonia: Status: Acute Assessment and Plan: 25-year-old female with past medical history of polysubstance abuse who presents to the hospital after friend and family found her on the floor semiconscious with drugs although around her. # Encephalopathy d/t drug overdose--resolved #Drug Overdose - positive for opioids and cocaine -she now denies self harm, that she took Benadryl to sleep -continue 1:1 monitoring -BHN/Crisis eval for possible intpatient admission to Psych #Sepsis due to aspiration pneumonia, sepsis resolved. -Clinically responding to therapy -Change Abx to Augmentin #Rhabdomylosis--CPK of 10K and now down to 3596-->2748, continue IVF and oral Fluid #Opioid dependince--Addiction service following and has started on Suboxone DVT prophylaxis: Lovenox
[2020-09-22 11:25] VITALS: BP 118/72; PULSE 72; RESP 18; TEMP 36.9; O2SAT 98
--- NOTE | 2020-09-22 13:37 | PM.DS ---
DS: Providers Provider Date of Service: 09/22/20 Date of admission: 09/19/20 23:52 Primary care physician: Unknown Physician Consults: 09/20/20 06:46 Consult to Care Team Routine Comment: Reason for consultation: Possible suicidal ideation 09/22/20 08:35 Consult to Crisis Stat Reason for consultation: Medically ready for discharge, s/p benadryl overdose DS: Diagnosis Discharge Diagnosis (1) Drug overdose: Status: Acute (2) Encephalopathy: Status: Acute (3) Pneumonia: Status: Acute DS: Medications Discharge Medications Home Medications: Previous Rx's Medication Instructions Recorded mupirocin 1 appl TOPICAL BID #15 g 05/30/20 buprenorphine 8 mg-naloxone 2 mg 1 film SUBLINGUAL DAILY #7 ea 06/02/20 sublingual film cephalexin 500 mg PO BID 7 Days #14 cap 08/04/20 DS: Summary Hospital Course Hospital Course: Chief Complaint: Drug overdose This is a 25-year-old female with history of substance abuse who presents to the hospital after being found semiconscious on the floor by her family. Patient was found with different drugs around her. At this time patient is obtunded therefore history is obtained from ED physician. Patient presented with altered mental status after her friend apparently called her brother and told him that she was not waking up. She was found to be breathing heavily per her friend and therefore EMS was called. On arrival to the ED patient was significantly agitated, with bizarre behavior, and not providing any history. On my exam patient is obtunded and therefore unable to obtain any review of system. Patient's sister reports that patient did have possible self-harm behaviors and suicidal ideation. Due to her combative nature and agitation patient received Haldol, Ativan, Zyprexa, and propofol. Urine drug screen is positive for opioids as well as cocaine. Her vitals on arrival showed temp of 99.7?, heart rate of 114, respiratory rate of 42, blood pressure 124/85, satting 100% on room air Labs are significant for WBC count of 17.5, lactic acid of 3.4 than normalized after fluids, AST of 103, CPK of 10,528, urine negative for any infection. Chest x-ray shows no intrathoracic disease but head CT showed moderate multifocal airspace opacities in the visualized upper lung suggestive of an active infectious/inflammatory process Hospital course: patient was admitted for drug overdose that lead to obtundation and ecephalopathy and as result suffered aspiration pneumonia and sepsis, and because she was down for prolonged perioid of time, she also suffered rhabdomylosis with CPK rising to 10, 000. For aspiration pneumonia and Sepsis, she was treated with Unasyn for 3 days now, sepsis is resolved. WBC has come down to normal 9 from 18, she is afebrile and no respiratory symptoms at this time. Metabolic Encephalopathy due to overdose and aspiration, this has resolved, she is back to her baseline mental state now Overdose--she was completly obtunded on presentation, she later stated that she was took Benadryl only to sleep, her sister conflicts this. There high index of suspicion that this was intentional and therefore is been sectioned 12 and will be admitted to inpatient Psych Rhabdomylosis--from been down, her CPK was 48559 and has come down to 2700 and continue to be trending down, she was treated with IVF and is now drinking plenty of water and level is expected to continue to trend down, event with oral water Time Spent with Patient Time attestation: Total time spent providing and/or coordinating discharge services: Discharge coordination time: Greater than 30 minutes Quality: Stroke Does the patient have a stroke diagnosis?: No Physical Exam Vital Signs: Vital Signs: Last Vital Signs Temp 98.5 F 09/22/20 11:25 Pulse 72 09/22/20 11:25 Resp 18 09/22/20 11:25 BP 118/72 09/22/20 11:25 Pulse Ox 98 09/22/20 11:25 Body Mass Index 20.5 DS: Data Data Completed and Pending Labs on day of discharge: Laboratory Results - last 24 hr 09/22/20 09/22/20 09/22/20 05:42 05:42 05:42 WBC 9.8 RBC 3.81 L Hgb 11.7 L Hct 35.2 L MCV 92.4 MCH 30.7 MCHC 33.2 RDW 12.9 Plt Count 217 MPV 10.0 Absolute Nucleated RBC 0.000 Nucleated RBC % (auto) 0.0 Sodium 139 Potassium 4.0 Chloride 111 H Carbon Dioxide 21 L Anion Gap 11 L BUN 12 Creatinine 0.60 Estim Creat Clear Calc 124.2 Estimated GFR > 60 Random Glucose 101 Calcium 8.3 L Total Creatine Kinase 2748 H Preliminary micro results at discharge 09/19/20 14:46 Blood Culture - Preliminary Blood - Venous No growth after 48 hours. 09/19/20 14:09 Blood Culture - Preliminary Blood - Venous No growth after 48 hours. Discharge Plan Discharge Anticipated Discharge Date/Time: 09/22/20 13:13 Patient Disposition: Xfer Psychiatric Hosp Discharge Diagnosis: Aspiration pneumonia, Over dose Referrals: Physician,Unknown [Primary Care Provider] - 1 Week Discharge Medications: New clonidine HCl 0.1 mg Tablet 0.1 mg PO TID PRN (Reason: anxiety) Qty: 10 RF: 0 hydroxyzine HCl 25 mg Tablet 25 mg PO Q6H PRN (Reason: withdrawal sx) Qty: 7 RF: 0 Continued mupirocin 2 % ointment 1 appl topical BID Qty: 15 RF: 0 buprenorphine-naloxone [Suboxone] 8-2 mg film 1 film sublingual DAILY Qty: 7 RF: 0 Discontinued cephalexin 500 mg capsule 500 mg PO BID 7 Days Qty: 14 RF: 0 Discharge Orders: Discharge Order (Routine); Ordered 09/22/20 Ordered By: Dorian Salinas Diet: advance to usual diet and diabetic diet Activity on Discharge: As tolerated Stand Alone Forms: Patient Portal Discharge page Care Plan Goals: To be be treated as inpatient for intentional overdose, possible depression Health Concerns: Substance abuse Plan of Treatment: Inpatient Psych treatment Assessment: as above Discharge Date/Time: 09/22/20 20:39
[2020-09-22] MEDS: Nicotine 14 MG PATCH.TD24 TRANSDERMA (14:06)
[2020-09-22 20:00] VITALS: BP 122/73; PULSE 78; RESP 16; TEMP 36.3; O2SAT 98
== END 2020-09-22 20:39 | DRG 816 ==
LOC: HO.ED 20:56 → HO.EDOVER 09-20 00:29 → HO.IMC 09-20 18:46
PROVIDERS: Emergency Medicine; Physician Assistant Medical; Admitting Provider Internal Medicine; Emergency Provider Internal Medicine; Visit Provider Internal Medicine
DX: T40.1X1A Poisoning by heroin, accidental (unintentional), initial encounter (principal); J69.0 Pneumonitis due to inhalation of food and vomit; A41.9 Sepsis, unspecified organism; M62.82 Rhabdomyolysis; F11.20 Opioid dependence, uncomplicated; T40.5X1A Poisoning by cocaine, accidental (unintentional), initial encounter; T45.0X1A Poisoning by antiallergic and antiemetic drugs, accidental (unintentional), initial encounter; Y92.9 Unspecified place or not applicable; F17.210 Nicotine dependence, cigarettes, uncomplicated; Z20.822 Contact with and (suspected) exposure to COVID-19; Z71.6 Tobacco abuse counseling; Z79.899 Other long term (current) drug therapy
CPT/HCPCS: 36415; 70450; 71045; 71250; 72125; 80048; 80053; 80143; 80179; 80307; 81001; 81003; 82077; 82140; 82550; 82803; 82947; 83605; 83690; 83735; 84484; 84702; 85025; 85027; 85610; 87040; 87635; 93005; 99285; J0295; J0610; J0696; J2060

== ENCOUNTER 2020-09-22 19:51 | Inpatient (IN) | payer OTHER, SELFPAY ==
[2020-09-22 21:40] VITALS: BP 133/81; PULSE 84; TEMP 36.5
[2020-09-22] MEDS: Acetaminophen 325 MG TABLET 650 MG PO (23:38)
[2020-09-23 00:30] VITALS: BMI 19.3
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
[2020-09-23 06:00] VITALS: BP 135/88; PULSE 76; RESP 18; TEMP 36.2; O2SAT 100
[2020-09-23 08:59] LABS: Estimated Average Glucose 108 mg/dL; Hemoglobin A1c % 5.4 %
[2020-09-23] MEDS: Buprenorphine/Naloxone 8/2 mg FILM 1 FILM SUBLINGUAL (09:06)
[2020-09-23 09:09] LABS: Cholesterol 130 mg/dL; HDL Cholesterol 29 mg/dL; LDL Cholesterol Calculated 85 mg/dl; Magnesium 2.1 mg/dL (1.6-2.6); Triglycerides 82 mg/dL
[2020-09-23 09:31] LABS: Free T4 (Free Thyroxine) 0.96 ng/dL (0.71-1.85)
[2020-09-23 09:48] LABS: Vitamin B12 703 pg/mL (200-900)
--- NOTE | 2020-09-23 10:46 | HO.PSYADMNOT ---
HPI Chief Complaint: ? Sources of Information: patient interviewed, chart reviewed and crisis/core team assessment reviewed HPI Subjective Notes: Rodriges Warning and Conditional Voluntary Narrative: Pt is a 25 yo female with hx of depression, anxiety, polysubstance abuse and chaotic childhood presents after overdose and subsequent pneumonia and rhabdomyolitis, currently on antibiotics, Dr. Marie following. Pt reports that overdose was with benadryl and she took it only because she was tired and wanted to sleep. She denies any SI at all, now or ever. She says she was probably also taking suboxone and probably percocet but she's not sure. Patient at first minimizes her sadness and anxiety, but comes to acknowledge that she's been deeply sad since her parents (a few years ago) and that it's because of the sadness she ends up relapsing. However, patient is adamant that she does not want psychotropics but says I just need therapy... Pt denies trauma hx and says her foster parents were very nice. Pt reports daily cocaine, Percocet/heroin when abuse/dependence; says she no longer drinks alcohol daily. Patient says she knows that she needs to work on her sobriety. She does not want to increase her Suboxone however and says she rather taper it off and get on Vivitrol. Past Psychiatric History: extensive substance abuse hx starting a few years ago. Medical Evaluation Reviewed: Yes [facility] Medical History (Updated 09/23/20 @ 16:52 by Woody Nichole MD) Anxiety MDD (major depressive disorder), recurrent episode, moderate Substance abuse Family History: Both mother and father were chronically engaged in substance abuse. Both are now and due to substance abuse (father overdosed; mother impaired and of exposure) Social History: Patient is the youngest of 3 siblings who were close given that their parents a few years ago. Patient and her siblings were in and out of foster care however patient reports that her foster care parents were very kind. Patient is close to her sister and brother Patient currently lives alone and has a boyfriend who is also engaged in substance abuse and used to be best friends with her father Patient reportedly sometimes sleeps in her parents abandoned and condemned house Substance History: Patient said she started abusing drugs a few years ago after her parents No longer drinks alcohol daily and does not abuse Daily abuse of cocaine and opiate products Trauma History: Patient denies, however likely neglect and chaotic environment given parents'chronic severe substance abuse and multiple stents in foster homes Diagnostics Vital Signs (24Hr): Vital Signs - 24 hr 09/22/20 21:40 09/23/20 06:00 Temperature 97.7 F 97.2 F Pulse Rate 84 76 Respiratory Rate 18 Blood Pressure 133/81 135/88 Pulse Oximetry 100 Body Mass Index 19.3 Labs Labs: Laboratory Results - last 48 hr 09/23/20 09/23/20 09/23/20 08:22 08:22 08:22 Estimat Average Glucose 108 Hemoglobin A1c % 5.4 Magnesium 2.1 Total Creatine Kinase Triglycerides 82 Cholesterol 130 LDL Cholesterol, Calc 85 HDL Cholesterol 29 Vitamin B12 703 Folate 16.0 TSH 0.50 Free T4 0.96 09/23/20 08:22 Estimat Average Glucose Hemoglobin A1c % Magnesium Total Creatine Kinase 4413 H D Triglycerides Cholesterol LDL Cholesterol, Calc HDL Cholesterol Vitamin B12 Folate TSH Free T4 Meds/Allergies Meds Home Medications Acetaminophen (Acetaminophen 325 Mg Tablet) 650 mg PO Q6H PRN PRN Reason: Headache/Pain Mild Scale (1-3) Last Admin: 09/22/20 23:38 Dose: 650 mg Documented by: Al Hydroxide/Mg Hydroxide (Magnesium Hydrox/Alum Hydrox 30 Ml Oral.Susp) 30 ml PO Q6H PRN PRN Reason: Heartburn/Nausea Al Hydroxide/Mg Hydroxide (Magnesium Hydrox/Alum Hydrox 30 Ml Oral.Susp) 30 ml PO Q6H PRN PRN Reason: Heartburn/Nausea Amoxicillin/Clavulanate Potassium (Amoxicillin/Potassium Clav 875 Mg Tablet) 875 mg PO Q12H [facility] Last Admin: 09/23/20 13:50 Dose: 875 mg Documented by: Buprenorphine/Naloxone (Buprenorphine/Naloxone 8/2 Mg Film) 1 film SUBLINGUAL DAILY [facility] Clonidine HCl (Clonidine Hcl 0.1 Mg Tablet) 0.1 mg PO BEDTIME PRN; Protocol PRN Reason: insomnia Hydroxyzine HCl (Hydroxyzine Hcl 25 Mg Tablet) 50 mg PO TID PRN PRN Reason: Anxiety Lactated Ringer's (Lr) 1,000 mls @ 150 mls/hr IVCONT .Q6H40M [facility] Stop: 09/24/20 02:19 Magnesium Hydroxide (Milk Of Magnesia 30 Ml Oral.Susp) 30 ml PO DAILY PRN PRN Reason: Constipation Magnesium Hydroxide (Milk Of Magnesia 30 Ml Oral.Susp) 30 ml PO DAILY PRN PRN Reason: Constipation Nicotine (Nicotine 14 Mg Patch.Td24) 14 mg TRANSDERMA DAILY NAKUL Last Admin: 09/23/20 15:32 Dose: 14 mg Documented by: Nicotine Polacrilex (Nicotine Polacrilex 2 Mg Gum) 4 mg BUCCAL Q2H PRN PRN Reason: Nicotine Cravings Last Admin: 09/23/20 13:55 Dose: 4 mg Documented by: Trazodone HCl (Trazodone Hcl 50 Mg Tablet) 50 mg PO BEDTIME PRN PRN Reason: Insomnia Allergies Allergies Allergy/AdvReac Type Severity Reaction Status Date / Time bee venom protein (honey bee) Allergy Intermediate Localized Verified 08/04/20 07:20 swelling near sting Mental Status Exam Mental Status Exam Narrative: Pt is alert and oriented; behavior is cooperative, friendly and calm; patient is not in distress; dressed in hospital gown, disheveled, bruises on her arms, face; mood is described as good but affect intermittently tearful and anxious; eye contact appropriate; Speech is normal rate, volume and prosody and not pressured; no psychomotor agitation/retardation present; thought process is organized, goal oriented and logical, but concrete; Thought content is on that she is not mentally ill and does not need psychotropics (repeated this a few times); otherwise pertinent to relevant topics and without any delusional content, paranoid ideations or grandiosity; denies any SI/HI. There is no evidence of perceptual disturbance. Patients insight and judgment appear impaired and minimizing event. Assessment & Plan Assessment & Plan (1) MDD (major depressive disorder), recurrent episode, moderate: Status: Acute Code(s): F33.1 - Major depressive disorder, recurrent, moderate Assessment and Plan: IMPRESSION: Pt is a 25 yo female with hx of depression, anxiety, polysubstance abuse and chaotic childhood presents after overdose and subsequent pneumonia and rhabdomyolitis, currently on antibiotics, Dr. Marie following. pt reports overdose not intentional, fully accidental. Does not want any medications. Patient is pleasant and friendly but guarded. Only reluctantly does she admit to depression. Siblings report in crisis note that patient sometimes sleeps in her parents abandoned house. Patient agrees that chronic substance use is keeping her from living a stable life. To that and she wants therapy. PLAN: Admit for safety and stabilization Q 15 minutes checks Patient on CV Lowered Suboxone back to 8 mg daily at patient's request Patient wants clonidine for bedtime insomnia and Vistaril for daytime anxiety Patient does not want any other meds Pneumonia: Patient on antibiotics Rhabdo: Dr. Marie following Patient received or to receive IV fluids 09/23 (2) Anxiety: Status: Acute Code(s): F41.9 - Anxiety disorder, unspecified (3) Pneumonia: Status: Acute Code(s): J18.9 - Pneumonia, unspecified organism (4) Non-traumatic rhabdomyolysis: Status: Acute Code(s): M62.82 - Rhabdomyolysis (5) Cocaine use disorder: Status: Acute Code(s): F14.10 - Cocaine abuse, uncomplicated (6) Opioid use disorder: Status: Acute Code(s): F11.99 - Opioid use, unspecified with unspecified opioid-induced disorder Patient educated on: diagnosis Informed Consent: understands Reason for continued inpatient stay Substantial Risk for: rapid decompensation
--- NOTE | 2020-09-23 11:11 | MHC.RECOVRN ---
T/w met with pt in 511 to f/u regarding Suboxone. It was noted that pt received 8/2 mg BID on 09/21, one 8/2 mg film on 09/22, and does not currently have an order to continue Suboxone. Pt reports it was due to the transition to M5 and that she would like it to be continued. Pt denies withdrawal symptoms while taking Suboxone. Pt reports feeling feverish and still getting better from downstairs. Case discussed with pts RN, Dr. Nichole, as well as Luzma Villa NP. Order has been entered for 8/2 mg BID. Pt to be connected to the [facility].
[2020-09-23] MEDS: Amoxicillin/Potassium Clav 875 MG TABLET PO ×2 (13:50→21:07)
[2020-09-23] MEDS: Nicotine Polacrilex 2 MG GUM 4 MG BUCCAL (13:55)
--- NOTE | 2020-09-23 13:55 | PC.NURSE ---
PT SIGNED A 3 DAY NOTICE ON SaturdaySEPTEMBER 23 THAT WILL BE UP ON SEPTEMBER 28.
[2020-09-23] MEDS: Nicotine 14 MG PATCH.TD24 TRANSDERMA (15:32)
[2020-09-23 16:54] VITALS: BP 143/82; PULSE 98; RESP 14; TEMP 36.6; O2SAT 97
[2020-09-23] MEDS: Lactated Ringers 1,000 ML 150 ML IVCONT (20:22)
[2020-09-23] MEDS: Acetaminophen 325 MG TABLET 650 MG PO (21:10)
[2020-09-24] MEDS: Buprenorphine/Naloxone 8/2 mg FILM 1 FILM SUBLINGUAL (08:39)
[2020-09-24] MEDS: Amoxicillin/Potassium Clav 875 MG TABLET PO ×2 (08:39→20:25)
[2020-09-24] MEDS: Nicotine 14 MG PATCH.TD24 TRANSDERMA (08:39)
[2020-09-24 09:05] LABS: Anion Gap 12 (12-20); Blood Urea Nitrogen 11 mg/dL (9-16); Carbon Dioxide 25 mmol/L (22-29); Chloride 107 mmol/L (96-108); Creatinine Clr Calc Pharmacy 102.9; Estimated Glomerular Filt Rate > 60; Glucose Random 98 mg/dL (60-115); Potassium 4.3 mmol/L (3.3-5.1); Sodium 140 mmol/L (135-145)
[2020-09-24] MEDS: Lactated Ringers 1,000 ML 150 ML IVCONT ×3 (12:07→20:38)
[2020-09-24] MEDS: Nicotine Polacrilex 2 MG GUM 4 MG BUCCAL ×2 (12:50→22:16)
--- NOTE | 2020-09-24 18:00 | P.PNPSI_ITS ---
Subjective Subjective Date of Service: 09/24/20 Reason For Visit: ? Subjective Notes: Conditional Voluntary Healthcare Proxy: No Guardianship: No Medical Problems Affecting Mental Status: Yes (s/p OD) Interim History: Pt on one to one as she continues with IV s/p OD. Denies any issues. It was an accident Follow up diagnostics after current IV is completed. Creatinine Kinanse and Comp Met Panel ordered for 09/25. Medication Compliance: Yes Side effects from medications: No Attending Groups: Yes Review of Systems Reports behavioral changes Psychiatric: Reports behavioral changes and Reports suicidal ideation (denies) Mental Status Exam Mental Status Exam Patient Appearance: Appropriate Patient Orientation: Person, Place, Time and Situation Level of Consciousness: Alert Patient Behavior: Guarded, Cooperative and Good Eye Contact Mood Description: Blunted Affect Description: Blunted Patient Cognition Impaired: No Ability to Follow Directions: Good Speech Pattern: Spontaneous Speech Memory Description: Remote Impaired and Episodic Impaired Hallucinations: None Delusions: Not Present Thought Process: Distracted Thought Content: positive for Intact, positive for Clifford and positive for Circumstantial Judgement: Poor Diagnostics Vital Signs (24Hr): Body Mass Index 19.3 Labs Results: 09/24/20 08:28 Labs: Laboratory Results - last 48 hr 09/23/20 09/23/20 09/23/20 08:22 08:22 08:22 Sodium Potassium Chloride Carbon Dioxide Anion Gap BUN Creatinine Estim Creat Clear Calc Estimated GFR Random Glucose Estimat Average Glucose 108 Hemoglobin A1c % 5.4 Calcium Magnesium 2.1 Total Creatine Kinase Triglycerides 82 Cholesterol 130 LDL Cholesterol, Calc 85 HDL Cholesterol 29 Vitamin B12 703 Folate 16.0 TSH 0.50 Free T4 0.96 09/23/20 09/24/20 08:22 08:28 Sodium 140 Potassium 4.3 Chloride 107 Carbon Dioxide 25 Anion Gap 12 BUN 11 Creatinine 0.66 Estim Creat Clear Calc 102.9 Estimated GFR > 60 Random Glucose 98 Estimat Average Glucose Hemoglobin A1c % Calcium 9.0 D Magnesium Total Creatine Kinase 4413 H D 2571 H D Triglycerides Cholesterol LDL Cholesterol, Calc HDL Cholesterol Vitamin B12 Folate TSH Free T4 Medications Medications Current Medications Generic Name Dose Route Start Last Admin Trade Name Freq PRN Reason Stop Dose Admin Acetaminophen 650 mg 09/22/20 21:16 09/23/20 21:10 Acetaminophen 325 Mg Tablet PO 650 mg Q6H PRN Administration Headache/Pain Mild Scale (1-3) Al Hydroxide/Mg Hydroxide 30 ml 09/22/20 17:09 Magnesium Hydrox/Alum Hydrox 30 Ml Oral.Susp PO Q6H PRN Heartburn/Nausea Al Hydroxide/Mg Hydroxide 30 ml 09/22/20 21:16 Magnesium Hydrox/Alum Hydrox 30 Ml Oral.Susp PO Q6H PRN Heartburn/Nausea Amoxicillin/Clavulanate Potassium 875 mg 09/23/20 21:00 09/24/20 08:39 Amoxicillin/Potassium Clav 875 Mg Tablet PO 875 mg 0900,2100 NAKUL Administration Buprenorphine/Naloxone 1 film 09/24/20 09:00 09/24/20 08:39 Buprenorphine/Naloxone 8/2 Mg Film SUBLINGUAL 1 film DAILY NAKUL Administration Clonidine HCl 0.1 mg 09/23/20 13:52 Clonidine Hcl 0.1 Mg Tablet PO BEDTIME PRN insomnia Protocol Hydroxyzine HCl 50 mg 09/23/20 13:54 Hydroxyzine Hcl 25 Mg Tablet PO TID PRN Anxiety Lactated Ringer's 1,000 mls @ 150 mls/hr 09/24/20 11:30 09/24/20 12:07 Lr IVCONT 09/25/20 07:29 150 mls/hr .Q6H40M NAKUL Administration Magnesium Hydroxide 30 ml 09/22/20 17:09 Milk Of Magnesia 30 Ml Oral.Susp PO DAILY PRN Constipation Magnesium Hydroxide 30 ml 09/22/20 21:16 Milk Of Magnesia 30 Ml Oral.Susp PO DAILY PRN Constipation Nicotine 14 mg 09/23/20 14:05 09/24/20 08:39 Nicotine 14 Mg Patch.Td24 TRANSDERMA 14 mg DAILY NAKUL Administration Nicotine Polacrilex 4 mg 09/22/20 17:09 09/24/20 12:50 Nicotine Polacrilex 2 Mg Gum BUCCAL 4 mg Q2H PRN Administration Nicotine Cravings Trazodone HCl 50 mg 09/22/20 17:09 Trazodone Hcl 50 Mg Tablet PO BEDTIME PRN Insomnia Allergies Allergies Allergy/AdvReac Type Severity Reaction Status Date / Time bee venom protein (honey bee) Allergy Intermediate Localized Verified 08/04/20 07:20 swelling near sting Assessment & Plan Assessment & Plan (1) MDD (major depressive disorder), recurrent episode, moderate: Status: Acute Code(s): F33.1 - Major depressive disorder, recurrent, moderate Assessment and Plan: IMPRESSION: Pt is a 25 yo female with hx of depression, anxiety, polysubstance abuse and chaotic childhood presents after overdose and subsequent pneumonia and rhabdomyolitis, currently on antibiotics, Dr. Marie following. pt reports overdose not intentional, fully accidental. Does not want any medications. Patient is pleasant and friendly but guarded. Only reluctantly does she admit to depression. Siblings report in crisis note that patient sometimes sleeps in her parents abandoned house. Patient agrees that chronic substance use is keeping her from living a stable life. To that and she wants therapy. PLAN: Admit for safety and stabilization Q 15 minutes checks Patient on CV Lowered Suboxone back to 8 mg daily at patient's request Patient wants clonidine for bedtime insomnia and Vistaril for daytime anxiety Patient does not want any other meds Pneumonia: Patient on antibiotics Rhabdo: Dr. Marie following Patient in process of second bag of fluids, labs post infusion. (2) Anxiety: Status: Acute Code(s): F41.9 - Anxiety disorder, unspecified (3) Pneumonia: Status: Acute Code(s): J18.9 - Pneumonia, unspecified organism (4) Non-traumatic rhabdomyolysis: Status: Acute Code(s): M62.82 - Rhabdomyolysis (5) Cocaine use disorder: Status: Acute Code(s): F14.10 - Cocaine abuse, uncomplicated (6) Opioid use disorder: Status: Acute Code(s): F11.99 - Opioid use, unspecified with unspecified opioid-induced disorder Greater than 50% of the session was spent on counseling and/or coordination of care Reason for contiued inpatient stay Substantial Risk for: harm to self, inability to function, rapid decompensation and med/psych decompensation
[2020-09-24 19:35] VITALS: BP 138/82; PULSE 79; TEMP 36.2; O2SAT 98
--- NOTE | 2020-09-24 21:04 | PC.NURSE ---
MAR indicates that 3th 1 liter bag of Lactated Ringer was not given. Per shift report 3th bag of this IV fluid was started at 11:30, completed at 18:30. Hospitalist Dr. Salinas ok to d/c Lactated Ringer, removed at 19:00. 3th bag was not scanned, VS WNL
--- NOTE | 2020-09-24 21:50 | PC.NURSE ---
Pt at 1930, had a visit from George, her . They were sitting together and the 1:1 was watching and she noticed he had sat next to her and quickly got up. Staff felt she may have been given contraband. Suyapa was contacted who is covering tonight and she was here. We had security come up and we searched pt and her room. Nothing was found. Pt denied receiving anything. Pt maintained on 1:1. Pt did not have any suspicious behaviors after visit.
[2020-09-24] MEDS: traZODone HCL 50 MG TABLET PO (22:16)
[2020-09-25 08:15] LABS: Alanine Aminotransferase 37 U/L (0-31); Albumin Level 4.1 g/dL (3.5-5.0); Alkaline Phosphatase 72 U/L (39-117); Anion Gap 13 (12-20); Aspartate Amino Transferase 39 U/L (5-31); Bilirubin Total 0.3 mg/dL (0.0-1.0); Blood Urea Nitrogen 15 mg/dL (9-16); Calcium 8.9 mg/dL (8.4-10.2); Carbon Dioxide 23 mmol/L (22-29); Chloride 107 mmol/L (96-108); Creatinine Clr Calc Pharmacy 95.6; Estimated Glomerular Filt Rate > 60; Glucose Random 95 mg/dL (60-115); Potassium 4.3 mmol/L (3.3-5.1); Sodium 139 mmol/L (135-145); Total Protein 7.1 g/dL (6.5-8.0)
[2020-09-25] MEDS: Amoxicillin/Potassium Clav 875 MG TABLET PO ×2 (08:41→21:09)
[2020-09-25] MEDS: Nicotine 14 MG PATCH.TD24 TRANSDERMA (08:41)
[2020-09-25] MEDS: Buprenorphine/Naloxone 8/2 mg FILM 1 FILM SUBLINGUAL (08:42)
--- NOTE | 2020-09-25 12:08 | MHC.RECOVSUP ---
Recovery Support note: This mortgage or loan underwriter followed up with patient to discuss Suboxone and recovery supports. Patient reports she is doing well with the combination of Suboxone and nicotine replacement therapy. Patient reports that she plans to continue the Suboxone after discharge, however will discontinue the nicotine patch and will return to smoking cigarettes. Patient reports she will smoke less than before but that she enjoys being able to smoke as a way to cope with anxiety. Discussed coping skills with patient. Patient reports having supports to reach out to as being very helpful. Patient reports she was previously established with a Suboxone clinic and that she has supports in place through that clinic however she cannot remember the name at this time. Patient plans to continue with that clinic after discharge. Discussed the recovery community in [place] and provided patient with information on [facility] [place].
[2020-09-25 12:10] VITALS: BP 135/65; PULSE 94; RESP 16; TEMP 36.4; O2SAT 98
--- NOTE | 2020-09-25 16:16 | HO.PSYCHPN ---
Subjective Subjective Date of Service: 09/25/20 Reason For Visit: ? Interim History: Rhabdomylosis improving. Total Creatinie Kinase Hospitalist encourages pt to increase PO fluids today with repeat labs tomorrow which are ordered. Pt presents as somewhat medicine seeking, superficially positive, happy. No really talking about attempt. Medication Compliance: Yes Side effects from medications: No Attending Groups: Intermittent Review of Systems Reports behavioral changes Psychiatric: Reports anxiety, Reports behavioral changes and Reports suicidal ideation Mental Status Exam Mental Status Exam Patient Appearance: Appropriate Patient Orientation: Person, Place, Time and Situation Level of Consciousness: Alert Patient Behavior: Guarded, Talkative, Anxious and Avoidant Mood Description: Constricted Affect Description: Constricted Patient Cognition Impaired: No Ability to Follow Directions: Good Speech Pattern: Spontaneous Speech Memory Description: Episodic Impaired Hallucinations: None Delusions: Not Present Thought Process: Distracted Thought Content: positive for Sturgeon and positive for Circumstantial Depressive Symptoms: Increased Anxiety and Thoughts of /Suicide Judgement: Fair Diagnostics Vital Signs (24Hr): Vital Signs - 24 hr 09/24/20 19:35 09/25/20 12:10 Temperature 97.2 F 97.6 F Pulse Rate 79 94 Respiratory Rate 16 Blood Pressure 138/82 135/65 Pulse Oximetry 98 98 Body Mass Index 19.3 Labs Results: 09/25/20 07:41 Labs: Laboratory Results - last 48 hr 09/24/20 09/25/20 08:28 07:41 Sodium 140 139 Potassium 4.3 4.3 Chloride 107 107 Carbon Dioxide 25 23 Anion Gap 12 13 BUN 11 15 Creatinine 0.66 0.71 Estim Creat Clear Calc 102.9 95.6 Estimated GFR > 60 > 60 Random Glucose 98 95 Calcium 9.0 D 8.9 Total Bilirubin 0.3 AST 39 H D ALT 37 H Alkaline Phosphatase 72 Total Creatine Kinase 2571 H D 1218 H D Total Protein 7.1 Albumin 4.1 Medications Medications Current Medications Generic Name Dose Route Start Last Admin Trade Name Freq PRN Reason Stop Dose Admin Acetaminophen 650 mg 09/22/20 21:16 09/23/20 21:10 Acetaminophen 325 Mg Tablet PO 650 mg Q6H PRN Administration Headache/Pain Mild Scale (1-3) Al Hydroxide/Mg Hydroxide 30 ml 09/22/20 17:09 Magnesium Hydrox/Alum Hydrox 30 Ml Oral.Susp PO Q6H PRN Heartburn/Nausea Al Hydroxide/Mg Hydroxide 30 ml 09/22/20 21:16 Magnesium Hydrox/Alum Hydrox 30 Ml Oral.Susp PO Q6H PRN Heartburn/Nausea Amoxicillin/Clavulanate Potassium 875 mg 09/23/20 21:00 09/25/20 08:41 Amoxicillin/Potassium Clav 875 Mg Tablet PO 875 mg 0900,2100 NAKUL Administration Benzocaine 1 appl 09/25/20 11:41 09/25/20 13:23 Benzocaine 10 % Oral Gel 9 Gm Tube MUCOUS MEM 1 appl QID PRN Administration Pain, Mild (Pain Scale 1-3) Protocol Buprenorphine/Naloxone 1 film 09/24/20 09:00 09/25/20 08:42 Buprenorphine/Naloxone 8/2 Mg Film SUBLINGUAL 1 film DAILY NAKUL Administration Clonidine HCl 0.1 mg 09/23/20 13:52 Clonidine Hcl 0.1 Mg Tablet PO BEDTIME PRN insomnia Protocol Hydroxyzine HCl 50 mg 09/23/20 13:54 Hydroxyzine Hcl 25 Mg Tablet PO TID PRN Anxiety Magnesium Hydroxide 30 ml 09/22/20 17:09 Milk Of Magnesia 30 Ml Oral.Susp PO DAILY PRN Constipation Magnesium Hydroxide 30 ml 09/22/20 21:16 Milk Of Magnesia 30 Ml Oral.Susp PO DAILY PRN Constipation Nicotine 14 mg 09/23/20 14:05 09/25/20 08:41 Nicotine 14 Mg Patch.Td24 TRANSDERMA 14 mg DAILY NAKUL Administration Nicotine Polacrilex 4 mg 09/22/20 17:09 09/24/20 22:16 Nicotine Polacrilex 2 Mg Gum BUCCAL 4 mg Q2H PRN Administration Nicotine Cravings Trazodone HCl 50 mg 09/22/20 17:09 09/24/20 22:16 Trazodone Hcl 50 Mg Tablet PO 50 mg BEDTIME PRN Administration Insomnia Allergies Allergies Allergy/AdvReac Type Severity Reaction Status Date / Time bee venom protein (honey bee) Allergy Intermediate Localized Verified 08/04/20 07:20 swelling near sting Assessment & Plan Assessment & Plan (1) MDD (major depressive disorder), recurrent episode, moderate: Status: Acute Code(s): F33.1 - Major depressive disorder, recurrent, moderate Assessment and Plan: IMPRESSION: Pt is a 25 yo female with hx of depression, anxiety, polysubstance abuse and chaotic childhood presents after overdose and subsequent pneumonia and rhabdomyolitis, currently on antibiotics, Dr. Marie following. pt reports overdose not intentional, fully accidental. Does not want any medications. Patient is pleasant and friendly but guarded. Only reluctantly does she admit to depression. Siblings report in crisis note that patient sometimes sleeps in her parents abandoned house. Patient agrees that chronic substance use is keeping her from living a stable life. To that and she wants therapy. PLAN: Admit for safety and stabilization Q 15 minutes checks Patient on CV Lowered Suboxone back to 8 mg daily at patient's request Patient wants clonidine for bedtime insomnia and Vistaril for daytime anxiety Patient does not want any other meds Not discussing the attempt, precipitants. anxious, superficial, guarded. Pneumonia: Patient on antibiotics Rhabdo: Dr. Marie following IV discontinued. Pushing PO fluids today Repeat labs on 09/26. (2) Anxiety: Status: Acute Code(s): F41.9 - Anxiety disorder, unspecified (3) Pneumonia: Status: Acute Code(s): J18.9 - Pneumonia, unspecified organism (4) Non-traumatic rhabdomyolysis: Status: Acute Code(s): M62.82 - Rhabdomyolysis (5) Cocaine use disorder: Status: Acute Code(s): F14.10 - Cocaine abuse, uncomplicated (6) Opioid use disorder: Status: Acute Code(s): F11.99 - Opioid use, unspecified with unspecified opioid-induced disorder Greater than 50% of the session was spent on counseling and/or coordination of care Reason for contiued inpatient stay Substantial Risk for: harm to self, inability to function, rapid decompensation and med/psych decompensation
[2020-09-25 17:43] VITALS: BP 130/69; PULSE 86; RESP 18; TEMP 36.5; O2SAT 98
[2020-09-25 21:12] VITALS: BP 132/79; PULSE 103
[2020-09-25] MEDS: cloNIDine HCL 0.1 MG TABLET PO (21:12)
[2020-09-26 06:00] VITALS: BP 98/55; PULSE 70; RESP 14; TEMP 36.3; O2SAT 99
[2020-09-26] MEDS: Amoxicillin/Potassium Clav 875 MG TABLET PO ×2 (08:12→21:11)
[2020-09-26] MEDS: Buprenorphine/Naloxone 8/2 mg FILM 1 FILM SUBLINGUAL (08:13)
--- NOTE | 2020-09-26 09:26 | HO.PSYCHPN ---
Subjective Subjective Date of Service: 09/27/20 Reason For Visit: ? Subjective Notes: Conditional Voluntary Interim History: Joaquina denies symptoms of depression and anxiety. She denies OD was suicide attempt. She has limited to no insight into substance use, stating that medical complications including cocaine induced seizure and rhabdomyolosis/ RADHA also as consequence of cocaine use. She reports she will follow up on substance use tx referrals. She reports sleeping and eating well. 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 Medication Compliance: Yes Review of Systems Reports behavioral changes Psychiatric: Reports anxiety, Reports behavioral changes and Reports suicidal ideation Mental Status Exam Mental Status Exam Narrative: She is alert, oriented x 3. Her thoughts process is linear. Her thoughts content without signs of psychosis. She is future oriented and denies safety concerns including SI or HI. No VH/AH. No behavioral concerns. No agitation or retardation noted. Her insight/judgment in terms of substances use is very poor. Memory/cog- grossly intact to conversational testing. Diagnostics Vital Signs (24Hr): Vital Signs - 24 hr 09/26/20 17:57 09/27/20 00:11 09/27/20 06:47 Temperature 97.4 F 98.6 F Pulse Rate 93 88 71 Respiratory Rate 14 Blood Pressure 143/66 H 135/86 105/58 L Pulse Oximetry 96 99 Body Mass Index 19.3 Labs Results: 09/25/20 07:41 Medications Medications Current Medications Generic Name Dose Route Start Last Admin Trade Name Freq PRN Reason Stop Dose Admin Acetaminophen 650 mg 09/22/20 21:16 09/23/20 21:10 Acetaminophen 325 Mg Tablet PO 650 mg Q6H PRN Administration Headache/Pain Mild Scale (1-3) Al Hydroxide/Mg Hydroxide 30 ml 09/22/20 17:09 09/27/20 09:12 Magnesium Hydrox/Alum Hydrox 30 Ml Oral.Susp PO 30 ml Q6H PRN Administration Heartburn/Nausea Al Hydroxide/Mg Hydroxide 30 ml 09/22/20 21:16 Magnesium Hydrox/Alum Hydrox 30 Ml Oral.Susp PO Q6H PRN Heartburn/Nausea Amoxicillin/Clavulanate Potassium 875 mg 09/23/20 21:00 09/27/20 09:12 Amoxicillin/Potassium Clav 875 Mg Tablet PO 875 mg 0900,2100 NAKUL Administration Benzocaine 1 appl 09/25/20 11:41 09/25/20 13:23 Benzocaine 10 % Oral Gel 9 Gm Tube MUCOUS MEM 1 appl QID PRN Administration Pain, Mild (Pain Scale 1-3) Protocol Buprenorphine/Naloxone 1 film 09/24/20 09:00 09/27/20 09:11 Buprenorphine/Naloxone 8/2 Mg Film SUBLINGUAL 1 film DAILY NAKUL Administration Clonidine HCl 0.1 mg 09/23/20 13:52 09/27/20 00:11 Clonidine Hcl 0.1 Mg Tablet PO 0.1 mg BEDTIME PRN Administration insomnia Protocol Hydroxyzine HCl 50 mg 09/23/20 13:54 09/26/20 22:45 Hydroxyzine Hcl 25 Mg Tablet PO 50 mg TID PRN Administration Anxiety Magnesium Hydroxide 30 ml 09/22/20 17:09 Milk Of Magnesia 30 Ml Oral.Susp PO DAILY PRN Constipation Magnesium Hydroxide 30 ml 09/22/20 21:16 Milk Of Magnesia 30 Ml Oral.Susp PO DAILY PRN Constipation Nicotine 14 mg 09/23/20 14:05 09/26/20 11:13 Nicotine 14 Mg Patch.Td24 TRANSDERMA 14 mg DAILY NAKUL Administration Nicotine Polacrilex 4 mg 09/22/20 17:09 09/26/20 22:45 Nicotine Polacrilex 2 Mg Gum BUCCAL 4 mg Q2H PRN Administration Nicotine Cravings Trazodone HCl 50 mg 09/22/20 17:09 09/27/20 00:10 Trazodone Hcl 50 Mg Tablet PO 50 mg BEDTIME PRN Administration Insomnia Allergies Allergies Allergy/AdvReac Type Severity Reaction Status Date / Time bee venom protein (honey bee) Allergy Intermediate Localized Verified 08/04/20 07:20 swelling near sting Assessment & Plan Assessment & Plan (1) MDD (major depressive disorder), recurrent episode, moderate: Status: Acute Code(s): F33.1 - Major depressive disorder, recurrent, moderate Assessment and Plan: IMPRESSION: Pt is a 25 yo female with hx of depression, anxiety, polysubstance abuse and chaotic childhood presents after overdose and subsequent pneumonia and rhabdomyolitis, currently on antibiotics, Dr. Marie following. pt reports overdose not intentional, fully accidental. Does not want any medications. Patient is pleasant and friendly but guarded. Only reluctantly does she admit to depression. Siblings report in crisis note that patient sometimes sleeps in her parents abandoned house. Patient agrees that chronic substance use is keeping her from living a stable life. To that and she wants therapy. PLAN: Admit for safety and stabilization Q 15 minutes checks Patient on CV Lowered Suboxone back to 8 mg daily at patient's request Patient wants clonidine for bedtime insomnia and Vistaril for daytime anxiety Patient does not want any other meds Not discussing the attempt, precipitants. anxious, superficial, guarded. Pneumonia: Patient on antibiotics Rhabdo: Dr. Marie following IV discontinued. Pushing PO fluids today Repeat labs on 09/26. (2) Anxiety: Status: Acute Code(s): F41.9 - Anxiety disorder, unspecified (3) Pneumonia: Status: Acute Code(s): J18.9 - Pneumonia, unspecified organism (4) Non-traumatic rhabdomyolysis: Status: Acute Code(s): M62.82 - Rhabdomyolysis (5) Cocaine use disorder: Status: Acute Code(s): F14.10 - Cocaine abuse, uncomplicated (6) Opioid use disorder: Status: Acute Code(s): F11.99 - Opioid use, unspecified with unspecified opioid-induced disorder Greater than 50% of the session was spent on counseling and/or coordination of care Reason for contiued inpatient stay Substantial Risk for: stable for discharge
[2020-09-26] MEDS: Nicotine Polacrilex 2 MG GUM 4 MG BUCCAL ×2 (10:13→22:45)
[2020-09-26] MEDS: Nicotine 14 MG PATCH.TD24 TRANSDERMA (11:13)
[2020-09-26 17:57] VITALS: BP 143/66; PULSE 93; TEMP 36.3; O2SAT 96
[2020-09-26] MEDS: hydrOXYzine HCL 25 MG TABLET 50 MG PO (22:45)
[2020-09-27] MEDS: traZODone HCL 50 MG TABLET PO (00:10)
[2020-09-27 00:11] VITALS: BP 135/86; PULSE 88
[2020-09-27] MEDS: cloNIDine HCL 0.1 MG TABLET PO ×2 (00:11→18:37)
[2020-09-27 06:47] VITALS: BP 105/58; PULSE 71; RESP 14; TEMP 37; O2SAT 99
[2020-09-27] MEDS: Buprenorphine/Naloxone 8/2 mg FILM 1 FILM SUBLINGUAL (09:11)
[2020-09-27] MEDS: Magnesium Hydrox/Alum Hydrox 30 ML ORAL.SUSP PO (09:12)
[2020-09-27] MEDS: Amoxicillin/Potassium Clav 875 MG TABLET PO ×2 (09:12→20:28)
[2020-09-27] MEDS: Nicotine 14 MG PATCH.TD24 TRANSDERMA (11:46)
[2020-09-27] MEDS: Nicotine Polacrilex 2 MG GUM 4 MG BUCCAL ×2 (11:57→18:36)
[2020-09-27 12:51] LABS: Amphetamine Screen Urine Not Detected (Not Detect); Barbiturates, Urine Not Detected (Not Detect); Benzodiazepines Screen Urine Not Detected (Not Detect); Cannabinoid Screen Urine Not Detected (Not Detect); Cocaine Screen Urine Not Detected (Not Detect); Opiate Screen Urine Not Detected (Not Detect); Phencyclidine Screen Urine Not Detected (Not Detect)
--- NOTE | 2020-09-27 14:11 | P.PNPSI_ITS ---
Subjective Subjective Date of Service: 09/27/20 Reason For Visit: ? Interim History: Joaquina continues to report that she is doing well in that she is not depressed or anxious. She continues to denied suicidal or homicidal ideation. She has limited insight into substance use. She agrees to follow up with OP providers. She has been visible in the unit, at times appears hyper and there was concern of pt getting contraband from visitor but utox negative. Review of Systems Reports behavioral changes Psychiatric: Reports anxiety, Reports behavioral changes and Reports suicidal ideation Mental Status Exam Mental Status Exam Narrative: She is alert, oriented x 3. Her thoughts process is linear. Her thoughts content without signs of psychosis. She is future oriented and denies safety concerns including SI or HI. No VH/AH. No behavioral concerns. No agitation or retardation noted. Her insight/judgment in terms of substances use is very poor. Memory/cog- grossly intact to conversational testing. Patient Appearance: Appropriate Patient Orientation: Person, Place, Time and Situation Level of Consciousness: Alert Patient Behavior: Guarded, Talkative, Anxious and Avoidant Mood Description: Constricted Affect Description: Constricted Patient Cognition Impaired: No Ability to Follow Directions: Good Speech Pattern: Spontaneous Speech Memory Description: Episodic Impaired Diagnostics Vital Signs (24Hr): Vital Signs - 24 hr 09/26/20 17:57 09/27/20 00:11 09/27/20 06:47 Temperature 97.4 F 98.6 F Pulse Rate 93 88 71 Respiratory Rate 14 Blood Pressure 143/66 H 135/86 105/58 L Pulse Oximetry 96 99 Body Mass Index 19.3 Labs Results: 09/25/20 07:41 Labs: Laboratory Results - last 48 hr 09/27/20 Unknown Urine Opiates Screen Not Detected Ur Barbiturates Screen Not Detected Ur Phencyclidine Scrn Not Detected Ur Amphetamines Screen Not Detected U Benzodiazepines Scrn Not Detected Urine Cocaine Screen Not Detected U Marijuana (THC) Screen Not Detected Medications Medications Current Medications Generic Name Dose Route Start Last Admin Trade Name Freq PRN Reason Stop Dose Admin Acetaminophen 650 mg 09/22/20 21:16 09/23/20 21:10 Acetaminophen 325 Mg Tablet PO 650 mg Q6H PRN Administration Headache/Pain Mild Scale (1-3) Al Hydroxide/Mg Hydroxide 30 ml 09/22/20 17:09 09/27/20 09:12 Magnesium Hydrox/Alum Hydrox 30 Ml Oral.Susp PO 30 ml Q6H PRN Administration Heartburn/Nausea Al Hydroxide/Mg Hydroxide 30 ml 09/22/20 21:16 Magnesium Hydrox/Alum Hydrox 30 Ml Oral.Susp PO Q6H PRN Heartburn/Nausea Amoxicillin/Clavulanate Potassium 875 mg 09/23/20 21:00 09/27/20 09:12 Amoxicillin/Potassium Clav 875 Mg Tablet PO 875 mg 0900,2100 NAKUL Administration Benzocaine 1 appl 09/25/20 11:41 09/27/20 12:17 Benzocaine 10 % Oral Gel 9 Gm Tube MUCOUS MEM 1 appl QID PRN Administration Pain, Mild (Pain Scale 1-3) Protocol Buprenorphine/Naloxone 1 film 09/24/20 09:00 09/27/20 09:11 Buprenorphine/Naloxone 8/2 Mg Film SUBLINGUAL 1 film DAILY NAKUL Administration Clonidine HCl 0.1 mg 09/23/20 13:52 09/27/20 00:11 Clonidine Hcl 0.1 Mg Tablet PO 0.1 mg BEDTIME PRN Administration insomnia Protocol Hydroxyzine HCl 50 mg 09/23/20 13:54 09/26/20 22:45 Hydroxyzine Hcl 25 Mg Tablet PO 50 mg TID PRN Administration Anxiety Magnesium Hydroxide 30 ml 09/22/20 17:09 Milk Of Magnesia 30 Ml Oral.Susp PO DAILY PRN Constipation Magnesium Hydroxide 30 ml 09/22/20 21:16 Milk Of Magnesia 30 Ml Oral.Susp PO DAILY PRN Constipation Nicotine 14 mg 09/23/20 14:05 09/27/20 11:46 Nicotine 14 Mg Patch.Td24 TRANSDERMA 14 mg DAILY NAKUL Administration Nicotine Polacrilex 4 mg 09/22/20 17:09 09/27/20 11:57 Nicotine Polacrilex 2 Mg Gum BUCCAL 4 mg Q2H PRN Administration Nicotine Cravings Trazodone HCl 50 mg 09/22/20 17:09 09/27/20 00:10 Trazodone Hcl 50 Mg Tablet PO 50 mg BEDTIME PRN Administration Insomnia Allergies Allergies Allergy/AdvReac Type Severity Reaction Status Date / Time bee venom protein (honey bee) Allergy Intermediate Localized Verified 08/04/20 07:20 swelling near sting Assessment & Plan Assessment & Plan (1) MDD (major depressive disorder), recurrent episode, moderate: Status: Acute Code(s): F33.1 - Major depressive disorder, recurrent, moderate Assessment and Plan: IMPRESSION: Pt is a 25 yo female with hx of depression, anxiety, polysubstance abuse and chaotic childhood presents after overdose and subsequent pneumonia and rhabdomyolitis, currently on antibiotics, Dr. Marie following. pt reports overdose not intentional, fully accidental. Does not want any medications. Patient is pleasant and friendly but guarded. Only reluctantly does she admit to depression. Siblings report in crisis note that patient so metimes sleeps in her parents abandoned house. Patient agrees that chronic substance use is keeping her from living a stable life. To that and she wants therapy. PLAN: Admit for safety and stabilization Q 15 minutes checks Patient on CV Lowered Suboxone back to 8 mg daily at patient's request Patient wants clonidine for bedtime insomnia and Vistaril for daytime anxiety Patient does not want any other meds Not discussing the attempt, precipitants. anxious, superficial, guarded. Pneumonia: Patient on antibiotics Rhabdo: Dr. Marie following IV discontinued. Pushing PO fluids today Repeat labs on 09/27- CMP, CK pending (2) Anxiety: Status: Acute Code(s): F41.9 - Anxiety disorder, unspecified (3) Pneumonia: Status: Acute Code(s): J18.9 - Pneumonia, unspecified organism (4) Non-traumatic rhabdomyolysis: Status: Acute Code(s): M62.82 - Rhabdomyolysis (5) Cocaine use disorder: Status: Acute Code(s): F14.10 - Cocaine abuse, uncomplicated (6) Opioid use disorder: Status: Acute Code(s): F11.99 - Opioid use, unspecified with unspecified opioid-induced disorder Greater than 50% of the session was spent on counseling and/or coordination of care Reason for contiued inpatient stay Substantial Risk for: stable for discharge
[2020-09-27 15:07] LABS: Alanine Aminotransferase 36 U/L (0-31); Albumin Level 4.7 g/dL (3.5-5.0); Alkaline Phosphatase 85 U/L (39-117); Anion Gap 13 (12-20); Aspartate Amino Transferase 27 U/L (5-31); Bilirubin Total 0.3 mg/dL (0.0-1.0); Blood Urea Nitrogen 21 mg/dL (9-16); Calcium 9.7 mg/dL (8.4-10.2); Carbon Dioxide 28 mmol/L (22-29); Chloride 102 mmol/L (96-108); Estimated Glomerular Filt Rate > 60; Glucose Random 66 mg/dL (60-115); Potassium 3.8 mmol/L (3.3-5.1); Sodium 139 mmol/L (135-145); Total Protein 8.3 g/dL (6.5-8.0)
[2020-09-27 15:45] VITALS: BP 150/84; PULSE 102; TEMP 36.7
[2020-09-27 18:37] VITALS: BP 141/76; PULSE 115
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
[2020-09-28 06:00] VITALS: BP 143/90; PULSE 107; RESP 16; TEMP 36.2; O2SAT 100
[2020-09-28] MEDS: Buprenorphine/Naloxone 8/2 mg FILM 1 FILM SUBLINGUAL (08:10)
[2020-09-28] MEDS: Amoxicillin/Potassium Clav 875 MG TABLET PO (08:10)
--- NOTE | 2020-09-28 09:51 | P.DS_ITS ---
DS: Providers Provider Date of Service: 09/28/20 Date of admission: 09/22/20 19:51 Primary care physician: Unknown Physician DS: Diagnosis Discharge Diagnosis (1) MDD (major depressive disorder), recurrent episode, moderate: Status: Acute (2) Anxiety: Status: Acute (3) Pneumonia: Status: Acute (4) Non-traumatic rhabdomyolysis: Status: Resolved (5) Cocaine use disorder: Status: Acute (6) Opioid use disorder: Status: Acute DS: Medications Discharge Medications Home Medications: Previous Rx's Medication Instructions Recorded buprenorphine 8 mg-naloxone 2 mg 1 film SUBLINGUAL DAILY #7 ea 06/02/20 sublingual film clonidine HCl 0.1 mg PO BEDTIME PRN #10 tab 09/28/20 nicotine 14 mg TRANSDERMAL DAILY #30 ea 09/28/20 Data Data Completed and Pending Completed studies during hospitalization [Text1]: 09/23/20 09/23/20 09/23/20 08:22 08:22 08:22 Sodium Potassium Chloride Carbon Dioxide Anion Gap BUN Creatinine Estim Creat Clear Calc Estimated GFR Random Glucose Estimat Average Glucose 108 Hemoglobin A1c % 5.4 Calcium Magnesium 2.1 Total Bilirubin AST ALT Alkaline Phosphatase Total Creatine Kinase Total Protein Albumin Triglycerides 82 Cholesterol 130 LDL Cholesterol, Calc 85 HDL Cholesterol 29 Vitamin B12 703 Folate 16.0 TSH 0.50 Free T4 0.96 Urine Opiates Screen Ur Barbiturates Screen Ur Phencyclidine Scrn Ur Amphetamines Screen U Benzodiazepines Scrn Urine Cocaine Screen U Marijuana (THC) Screen 09/23/20 09/24/20 09/25/20 08:22 08:28 07:41 Sodium 140 139 Potassium 4.3 4.3 Chloride 107 107 Carbon Dioxide 25 23 Anion Gap 12 13 BUN 11 15 Creatinine 0.66 0.71 Estim Creat Clear Calc 102.9 95.6 Estimated GFR > 60 > 60 Random Glucose 98 95 Estimat Average Glucose Hemoglobin A1c % Calcium 9.0 D 8.9 Magnesium Total Bilirubin 0.3 AST 39 H D ALT 37 H Alkaline Phosphatase 72 Total Creatine Kinase 4413 H D 2571 H D 1218 H D Total Protein 7.1 Albumin 4.1 Triglycerides Cholesterol LDL Cholesterol, Calc HDL Cholesterol Vitamin B12 Folate TSH Free T4 Urine Opiates Screen Ur Barbiturates Screen Ur Phencyclidine Scrn Ur Amphetamines Screen U Benzodiazepines Scrn Urine Cocaine Screen U Marijuana (THC) Screen 09/27/20 09/27/20 10:06 Unknown Sodium 139 Potassium 3.8 Chloride 102 Carbon Dioxide 28 Anion Gap 13 BUN 21 H Creatinine 0.78 Estim Creat Clear Calc 87.0 Estimated GFR > 60 Random Glucose 66 Estimat Average Glucose Hemoglobin A1c % Calcium 9.7 D Magnesium Total Bilirubin 0.3 AST 27 ALT 36 H Alkaline Phosphatase 85 Total Creatine Kinase 292 H D Total Protein 8.3 H Albumin 4.7 Triglycerides Cholesterol LDL Cholesterol, Calc HDL Cholesterol Vitamin B12 Folate TSH Free T4 Urine Opiates Screen Not Detected Ur Barbiturates Screen Not Detected Ur Phencyclidine Scrn Not Detected Ur Amphetamines Screen Not Detected U Benzodiazepines Scrn Not Detected Urine Cocaine Screen Not Detected U Marijuana (THC) Screen Not Detected DS: Summary Hospital Course Hospital Course: HPI: Pt is a 25 yo female with hx of depression, anxiety, polysubstance abuse and chaotic childhood presents after overdose and subsequent pneumonia and rhabdomyolitis, currently on antibiotics, Dr. Marie following. Pt reports that overdose was with benadryl and she took it only because she was tired and wanted to sleep. She denies any SI at all, now or ever. She says she was probably also taking suboxone and probably percocet but she's not sure. Patient at first minimizes her sadness and anxiety, but comes to acknowledge that she's been deeply sad since her parents (a few years ago) and that it's because of the sadness she ends up relapsing. However, patient is adamant that she does not want psychotropics but says I just need therapy... Pt denies trauma hx and says her foster parents were very nice. Pt reports daily cocaine, Percocet/heroin when abuse/dependence; says she no longer drinks alcohol daily.? Patient says she knows that she needs to work on her sobriety.? She does not want to increase her Suboxone however and says she rather taper it off and get on Vivitrol. HOSPITAL COURSE On the unit, pt was admitted on CV- 3 day notice after. She was placed on 15 minutes checks for safety. On the unit, Ms. Smith adamantly denies that overdose was suicide attempt. She does admit to using substances including opioids. She does not think using substances is a problem and can stop anytime she wants. We discussed risks, benefits and alternative treatment options. Pt did not want to start any medications as she denied symptoms of depression or anxiety. She did agree to continue OP psychiatric treatment. Collateral information gathered from family who denied safety concerns at time of discharge. Pt at times presented with slightly expansive mood. No signs of psychosis. There were no incidences of disruptive behaviors nor use of restraints. Status at Discharge Cognitive/behavioral status at discharge: Pt future oriented, brighter affect. NO SI/HI. minimal insight into effects of substances on mood. Functional status at discharge: independent ambulation Overall status at discharge: patient is progressing back to baseline Time Spent with Patient Time attestation: Total time spent providing and/or coordinating discharge services: Time spent: Greater than 30 minutes Discharge Plan Discharge Patient Disposition: Home, Self-Care Discharge Diagnosis: Mood Disorder; Opioid Use Disorder; Cocaine Use Disorder Referrals: Suboxone Follow-Up Intake [Other] - 09/29/20 11:15 am (This appointment is in- person with Kay Marrero) Dirk Ratliff (therapy) [Other] - 10/03/20 10:50 am (This appointment is via Telehealth) Landy Andrade (psychiatry) [Other] - 10/26/20 10:00 am (This appointment is via Telehealth) Landy Andrade (psychiatry) [Other] - 11/22/20 10:20 am (This appointment is via Telehealth) Physician,Unknown [Primary Care Provider] - 10/12/20 9:30 am (Follow up at [facility] October 12 telephone appointment With DAVIDE Gomez) Discharge Medications: New clonidine HCl 0.1 mg Tablet 0.1 mg PO BEDTIME PRN (Reason: insomnia) Qty: 10 RF: 0 nicotine 14 mg/24 hr Patch 24 Hour 14 mg transdermal DAILY Qty: 30 RF: 0 amoxicillin-pot clavulanate 875-125 mg Tablet 875 mg PO 0900,2100 Qty: 10 RF: 0 Continued buprenorphine-naloxone [Suboxone] 8-2 mg film 1 film sublingual DAILY Qty: 7 RF: 0 Discontinued mupirocin 2 % ointment 1 appl topical BID Qty: 15 RF: 0 clonidine HCl 0.1 mg Tablet 0.1 mg PO TID PRN (Reason: anxiety) Qty: 10 RF: 0 hydroxyzine HCl 25 mg Tablet 25 mg PO Q6H PRN (Reason: withdrawal sx) Qty: 7 RF: 0 Discharge Orders: Discharge Order (Routine); Ordered 09/28/20 Ordered By: Afia Nino Diet: regular diet Activity on Discharge: As tolerated Stand Alone Forms: Patient Portal Discharge page, Community Support, Substance Abuse Outpt Detox Care Plan Goals: 1. Maintain mood 2. No SI/HI. Health Concerns: Follow up with PCP Plan of Treatment: 1. Take medications as prescribed. 2. Go to nearest ED or call 911 in event of emergency. Assessment: No SI/HI. No aggression towards self or others. Limited insight into substance use. Discharge Date/Time: 09/28/20 14:00
[2020-09-28] MEDS: Nicotine 14 MG PATCH.TD24 TRANSDERMA (11:03)
== END 2020-09-28 14:00 | disposition home or self-care (01) | DRG 751 ==
LOC: HO.PM5 09-27 09:26 → HO.PADLT16 09-28 01:12
PROVIDERS: Clinical Nurse Specialist Psychiatric/Mental Health, Adult; Internal Medicine; Social Worker; Admitting Provider Psychiatry & Neurology Psychiatry; Visit Provider Psychiatry & Neurology Psychiatry
DX: F33.1 Major depressive disorder, recurrent, moderate (principal); J18.9 Pneumonia, unspecified organism; M62.82 Rhabdomyolysis; F11.20 Opioid dependence, uncomplicated; F41.9 Anxiety disorder, unspecified; F17.210 Nicotine dependence, cigarettes, uncomplicated; F14.10 Cocaine abuse, uncomplicated; Z71.6 Tobacco abuse counseling; Z79.899 Other long term (current) drug therapy
CPT/HCPCS: 36415; 80048; 80053; 80061; 80307; 82550; 82607; 82746; 83036; 83735; 84439; 84443

== ENCOUNTER 2020-12-05 13:31 | Outpatient (REF) | payer MEDICAID, SELFPAY | END 2020-12-05 13:32 | disposition home or self-care (01) | LOC: HO.LAB 13:31 | PROVIDERS: PCP Internal Medicine; Visit Provider Internal Medicine | DX: Z20.822 Contact with and (suspected) exposure to COVID-19 (principal) | CPT/HCPCS: C9803; U0003; U0005 ==

== ENCOUNTER 2021-03-03 16:17 | Emergency (ER) | payer MEDICAID, SELFPAY ==
[2021-03-03 16:25] VITALS: BP 120/60; PULSE 82; RESP 16; TEMP 36.2; O2SAT 98; BMI 17.6
--- NOTE | 2021-03-03 17:00 | ED_ITS ---
HPI - Fever General Chief Complaint: Fever Stated Complaint: fever,fatigue, headache Time Seen by Provider: 03/03/21 16:43 Source: patient Mode of arrival: ambulatory Limitations: no limitations History of Present Illness HPI Narrative: 25-year-old female here with reports of requesting COVID and STD testing. Patient tells me she has a slight cough and subjective fever for the last few days. She has not received a COVID vaccine. She is also having some vaginal discharge which is white and the lower abdominal pain. No urinary symptoms. No back pain, vomiting. Patient tells me that she is currently using opiates. Her last use was yesterday. She sniffs only. Denies any injection me of opiates. She is currently sexually active 1 partner but feels that he is cheating on her and that is why she wants to get testing for STDs Related Data Previous Rx's Medication Instructions Recorded buprenorphine 8 mg-naloxone 2 mg 1 film SUBLINGUAL DAILY #7 ea 06/02/20 sublingual film (Suboxone) amoxicillin 875 mg-potassium 875 mg PO 0900,2100 #10 tab 09/28/20 clavulanate 125 mg tablet clonidine HCl 0.1 mg tablet 0.1 mg PO BEDTIME PRN #10 tab 09/28/20 nicotine 14 mg/24 hr daily 14 mg TRANSDERMAL DAILY #30 ea 09/28/20 transdermal patch doxycycline monohydrate 100 mg 100 mg PO BID #14 tab 03/03/21 tablet Allergies Allergy/AdvReac Type Severity Reaction Status Date / Time bee venom protein (honey bee) Allergy Intermediate Localized Verified 08/04/20 07:20 swelling near sting Review of Systems Review of Systems: Yes all other systems are reviewed and are negative Constitutional: Constitutional: Reports no additional constitutional complaints, Denies body ache(s), Denies chills, Reports fever(s), Denies headache(s) and Denies weakness Eyes: Eyes: Reports no additional eye complaints and Denies change in vision ENT: Reports system reviewed and no additional complaints, except as documented, Denies dizziness, Denies headache(s), Denies nasal congestion, Denies nasal discharge and Denies neck pain Cardiovascular: Cardiovascular: Reports no additional cardiovascular complaints, Denies chest pain, Denies leg edema and Denies dyspnea Respiratory: Respiratory: Reports no additional respiratory complaints, Reports cough and Denies dyspnea Gastrointestinal: Gastrointestinal: Reports no additional gastrointestinal complaints, Denies abdominal pain, Denies diarrhea, Denies nausea and Denies vomiting Genitourinary: Genitourinary: Reports no additional female genitourinary complaints, Reports pelvic pain, Denies urinary incontinence and Reports vaginal discharge Musculoskeletal: Musculoskeletal: Reports no additional musculoskeletal complaints, Denies back pain, Denies arthralgias, Denies joint swelling, Denies neck pain, Denies numbness and Denies tingling Integumentary/Breasts: Skin/Breast: Reports system reviewed and no additional complaints, except as docu and Denies rash Neurologic: Reports system reviewed and no additional complaints, except as documented, Denies Abnormal speech present, Denies dizziness, Denies headache(s), Denies numbness, Denies tingling and Denies weakness PMFSH Past Medical History Attestation statement: The following information was validated with the patient. Source: old records reviewed and nursing notes reviewed Medical History MDD (major depressive disorder), recurrent episode, moderate Substance abuse Social History Social History Household Members: None Housing: Homeless Do you presently have visiting nurse or other home services: No Unable to assess alcohol history related to: Unknown Patient Tobacco Use Status: Current someday Tobacco user Tobacco use type: Cigarette Cigarette Packs Per Day: 1.5 Cigarettes Per Day: 30.0 Substance Use Type: Crack/Cocaine and Heroin Advance Directives: No Advance Directives Information Provided: Yes Patient : No service: No Current occupational status: unemployed Sexual orientation: Bisexual Physical Exam Vital Signs: Vital Signs: Last Vital Signs Temp 97.2 F 03/03/21 16:25 Pulse 82 03/03/21 16:25 Resp 16 03/03/21 16:25 BP 120/60 03/03/21 16:25 Pulse Ox 98 03/03/21 16:25 BMI result Body Mass Index 17.6 Const: General: cooperative, healthy appearing, comfortable and no acute distress Orientation/consciousness: patient oriented x3 Limitations: no limitations HENMT: Head: Yes normal to inspection Ears: hearing grossly normal bilaterally and TM's normal bilaterally General nose exam: Normal external nose present Face and sinus: Yes normal facial exam Mouth: Normal oral and palatal mucosa present Throat: Yes posterior oropharynx normal, Yes tonsils normal and Yes uvula midline Eyes: General: appearance normal, both eyes and all related structures Pupils: Equal, round and reactive pupils present Neck: Neck: Yes normal visual inspection, Yes full ROM and Yes no lymphadenopathy Chest: Chest palpation & inspection: normal inspection of the chest Resp: Effort & Inspection: normal respiratory effort Auscultation: clear to auscultation bilaterally Cardio: Rate: regular rate Rhythm: regular rhythm Peripheral pulses: Peripheral pulses 2+ throughout GI: Inspection: Yes normal to inspection Palpation (GI): Soft to palpation and nontender Auscultation: normal bowel sounds : Other: ermalinda coal shooter present General: Yes Bimanual renal exam normal bilaterally and Yes no CVA tenderness External Female Exam: normal external appearance Speculum Exam - Vagina: normal appearance of the vagina and normal palpation Speculum Exam - Cervix: normal appearance of the cervix and normal palpation Bimanual exam- vagina & uterus: normal bimanual exam, normal palpation, normal palpation and no cervical motion tenderness Bimanual Exam- Adnexa, other: normal adnexae and no tenderness Back/Spine/Pelvis: Back: no CVA tenderness Thoracic/Lumbar Spine: thoracic and lumbar spine normal to inspection Skin: General skin exam: no rashes or lesions noted Neuro: General: patient oriented x3, no focal motor deficits and normal sensation to monofilament Cranial nerves: Yes Equal, round and reactive pupils present Cognition (Neuro): normal cognition Speech: No Abnormal speech present Gait exam (Neuro): Normal gait present Motor exam (neuro): 5/5 motor strength present throughout Extrem: General: Yes normal to inspection Course Course Course Narrative: 25 yo female here with with multiple complaints. Patient tells me she does cough and possibly subjective fever wants to be tested for COVID for several days. Will send testing for COVID, flu and RSV. Patient also complaining of concerned that she may have STD. She reports some vaginal discharge and lower abdominal discomfort. She feels like her boyfriend may be cheating on her. Will send testing for COVID, flu and RSV. Will check UA, urine , BV panel, CT and G and perform pelvic exam. 1720-no focal abdominal pain. Abdomen is soft nontender. Pelvic exam is normal. No cervical motion tenderness or adnexal tenderness. 1810-patient treated prophylactically for STDs with ceftriaxone 500 mg IM and a 7 day course of doxycycline p.o.. The patient is COVID test was positive. She has no hypoxia or tachycardia or tachypnea. Her lungs are clear. Her vitals are stable. We reviewed quarantine for home. Reviewed worrisome signs and symptoms of when to return to the emergency department. Comfortable discharge home. MDM - Fever Lab Data Labs: Lab Results 03/03/21 03/03/21 03/03/21 Range/Units 16:58 17:19 17:20 Urine Color YELLOW Urine Appearance CLEAR Urine pH 5.5 (5.0-8.0) Ur Specific [place] >= 1.030 H (1.005-1.025) Urine Protein NEG (NEG-TRACE) MG/DL Urine Glucose (UA) NEG (NEG) MG/DL Urine Ketones NEG (NEG) MG/DL Urine Blood NEG (NEG) Urine Nitrite NEG (NEG) Ur Leukocyte Esterase NEG (NEG) Urine Test NEGATIVE (NEGATIVE) Influenza Type A (PCR) NEGATIVE (Negative) Influenza Type B (PCR) NEGATIVE (Negative) RSV RNA Qual (PCR) NEGATIVE (Negative) SARS-CoV-2 RNA (RT-PCR) POSITIVE A (Negative) Discharge Plan Discharge Clinical Impression: Concern about STD in female without diagnosis, COVID-19 Patient Disposition: Home, Self-Care Instructions: Sexually Transmitted Diseases (ED), COVID-19 (Coronavirus Disease 2019) (ED) Additional Instructions: Quarantine for 10 days. Motrin or Tylenol for pain or fever. Increase fluids rest We tested due for STDs but do not know the results of these. We will call you if they are positive tomorrow the next day. We are treating her prophylactically for STDs. He received an injection of an antibiotic here and you should start doxycycline today. Take this with food. For additional STD testing like hepatitis and HIV you can follow-up at [facility] which is located at [address] [place] [address] in [facility]. [phone] Prescriptions: New doxycycline monohydrate 100 mg tablet 100 mg PO BID Qty: 14 RF: 0 No Action clonidine HCl 0.1 mg Tablet 0.1 mg PO BEDTIME PRN (Reason: insomnia) Qty: 10 RF: 0 nicotine 14 mg/24 hr Patch 24 Hour 14 mg transdermal DAILY Qty: 30 RF: 0 amoxicillin-pot clavulanate 405-125 mg Tablet 875 mg PO 0900,2100 Qty: 10 RF: 0 buprenorphine-naloxone [Suboxone] 8-2 mg film 1 film sublingual DAILY Qty: 7 RF: 0 Referrals: Physician,Unknown J [Primary Care Provider] - 2 days
[2021-03-03] MEDS: cefTRIAXone sodium 500 MG, Lidocaine HCl 1 % MPF 1 ML IM (17:50)
[2021-03-03 17:54] LABS: Appearance Urine CLEAR; Color Urine YELLOW; Glucose Urine UA NEG (NEG); Leukocyte Esterase Urine NEG (NEG); Nitrite Urine NEG (NEG); PH 5.5 (5.0-8.0); Specific Gravity - Urine >= 1.030 (1.005-1.025); Urine Blood NEG (NEG); Urine Ketones NEG (NEG); Urine Protein NEG (NEG-TRACE)
[2021-03-03 17:58] LABS: Influenza A PCR NEGATIVE (Negative); Influenza B PCR NEGATIVE (Negative); Resp Syncy Virus RNA Qual PCR NEGATIVE (Negative); SARS COV2 PCR INHOUSE POSITIVE (Negative)
[2021-03-03 18:02] LABS: UPreg QC Valid YES; Urine Pregnancy NEGATIVE (NEGATIVE)
[2021-03-04 02:00] LABS: CT PCR NOT DETECTED (Not Detect.); NG PCR NOT DETECTED (Not Detect.)
[2021-03-04 10:42] LABS: BV Int Neg Control Negative (Negative); BV Int Pos Control Positive (Positive)
== END 2021-03-03 18:29 | disposition home or self-care (01) ==
PROVIDERS: Nurse Practitioner Family; Emergency Provider Emergency Medicine
DX: U07.1 COVID-19 (principal); N76.0 Acute vaginitis; R51.9 Headache, unspecified
CPT/HCPCS: 0241U; 81003; 81025; 87480; 87491; 87510; 87591; 87660; 96372; 99284; J0696

== ENCOUNTER → 2021-04-13 14:30 | Outpatient (BNVA) | payer MEDICAID, SELFPAY | PROVIDERS: Visit Provider Nurse Practitioner Psychiatric/Mental Health | DX: F14.10 Cocaine abuse, uncomplicated (principal); F11.99 Opioid use, unspecified with unspecified opioid-induced disorder | CPT/HCPCS: 80305; 99212 ==

== ENCOUNTER → 2021-04-20 14:56 | Outpatient (BNVA) | payer MEDICAID, SELFPAY | PROVIDERS: Visit Provider Nurse Practitioner Psychiatric/Mental Health | DX: Z51.81 Encounter for therapeutic drug level monitoring (principal); F11.20 Opioid dependence, uncomplicated | CPT/HCPCS: 80305; 99211 ==

== ENCOUNTER 2021-09-16 21:40 | Emergency (ER) | payer MEDICAID, SELFPAY ==
[2021-09-16 21:55] VITALS: BP 142/86; PULSE 112; RESP 16; TEMP 37; O2SAT 98; BMI 20.7
--- NOTE | 2021-09-16 23:17 | ED.PSYCH ---
HPI - Psych General Chief Complaint: Psychiatric Symptoms Stated Complaint: crisis Time Seen by Provider: 09/16/21 22:19 Source: patient and EMS Mode of arrival: EMS History of Present Illness HPI Narrative: 26-year-old female states that she got in a verbal altercation with her sister denies current suicidal ideation but as per EMS patient made suicidal statements at her sister's house and also reports that patient had used crack cocaine 2 times today. Patient adamantly denies any use of alcohol or drugs and states that she took her Suboxone this morning but that was it. She was placed under Section 12 by [place] police. Related Data Previous Rx's Medication Instructions Recorded hydroxyzine HCl 25 mg tablet 25 mg PO TID PRN anxiety #30 tabs 04/20/21 buprenorphine 8 mg-naloxone 2 mg 1 film sublingual DAILY #6 ea 04/28/21 sublingual film (Suboxone) Allergies Allergy/AdvReac Type Severity Reaction Status Date / Time bee venom protein (honey bee) Allergy Intermediate Localized Verified 04/20/21 15:03 swelling near sting Review of Systems Review of Systems: Pertinent positives and negatives as stated in HPI 10 point review of systems is otherwise negative. [facility] Past Medical History Source: nursing notes reviewed Medical History BV (bacterial vaginosis) MDD (major depressive disorder), recurrent episode, moderate Substance abuse Social History Social History Household Members: None Housing: Homeless Do you presently have visiting nurse or other home services: No Unable to assess alcohol history related to: Unknown Alcohol intake: unknown Patient Tobacco Use Status: Current everyday Tobacco user Tobacco use type: Cigarette Cigarette Packs Per Day: 1.5 Cigarettes Per Day: 30.0 Use of substances other than those prescribed or required for medical reasons: Refusing to respond Substance Use Type: Crack/Cocaine and Heroin Advance Directives: No Patient : No service: No Current occupational status: unemployed Sexual orientation: Bisexual Physical Exam Vital Signs: Vital Signs: Last Vital Signs Temp 98.6 F 09/16/21 21:55 Pulse 112 H 09/16/21 21:55 Resp 16 09/16/21 21:55 BP 142/86 H 09/16/21 21:55 Pulse Ox 98 09/16/21 21:55 O2 Del Method 07/09/22 21:55 BMI result Body Mass Index 20.7 VITAL SIGNS: Reviewed. GENERAL: Well developed, well nourished, in no acute distress. HEAD: Normocephalic/atraumatic EYES: PERRLA, EOMI EARS: Ext canals without abnormality OROPHARYNX: no oral lesions noted, posterior pharynx clear LUNGS: Normal breath sounds. No adventitious sounds or accessory muscle use. SpO2<98> CARDIOVASCULAR: Regular rate and rhythm without noted murmurs ABDOMEN: Soft, non-tender, non-distended with bowel sounds. MUSCULOSKELETAL: No tenderness, deformities, or effusions noted on gross inspection. EXTREMITIES: No cyanosis, clubbing or edema. SKIN: Inspection of the skin reveals no rashes NEUROLOGIC: Alert and oriented x 4. Strength and sensation to light touch were grossly intact x 4. Cranial nerves 2-12 are grossly intact PSYCH: Elevated mood, agitated Course Course Course Narrative: 26-year-old female with history and clinical presentation consistent with substance use disorder, and history of major depressive disorder with statements of suicide resulting in [place] 12 by the police. Patient is agitated and demanding that she receive a visitor. Reevaluation(s) Reevaluation #1: Patient placed in physician observation because the patient needed more time for evaluation by the care team. At the time observation was started the patient's vital signs were stable, patient is alert and oriented but slightly agitated, neuro: Nonfocal, CV RRR, lungs clear Time: 00:01 Discharge Plan Discharge Clinical Impression: MDD (major depressive disorder), recurrent episode, moderate, Cocaine use disorder Patient Disposition: Still a Patient Prescriptions: No Action hydroxyzine HCl 25 mg tablet 25 mg PO TID PRN (Reason: anxiety) Qty: 30 0RF buprenorphine-naloxone [Suboxone] 8-2 mg film 1 film sublingual DAILY Qty: 6 1RF
[2021-09-16 23:45] VITALS: RESP 20
[2021-09-16] MEDS: OLANZapine 10 MG VIAL 5 MG IM (23:45)
[2021-09-16] MEDS: diphenhydrAMINE HCL 50 MG/ML VIAL IM (23:45)
[2021-09-17] VITALS: RESP 18
[2021-09-17 00:15] VITALS: RESP 18
[2021-09-17 00:28] LABS: COVID-19 Test Negative (Negative)
[2021-09-17 00:30] VITALS: RESP 18
[2021-09-17 00:45] VITALS: BP 117/84; PULSE 83; RESP 18; TEMP 37.1; O2SAT 98
--- NOTE | 2021-09-17 05:26 | PC.NURSE ---
Patient is currently in bed appears sleeping, patient was extremely agitated, violent, combative, non compliant with manager of change process, loud disruptive, unable to redirect, provider notified/ordered/Olanzapine 5 mg IM and Benadryl 50 mg IM, administered as ordered at 2345 with delayed effect, patient made multiple phone calls to her family member, [facility] referral completed/confirmed/pending ETA, per pharmacy claim history patient is currently not on any medication however, per patient's cousin sister June ([phone]) patient was compliant with her medication in [place] [facility], patient was released on last Saturday on bail, behavior unpredictable, will continue to monitor.
--- NOTE | 2021-09-17 05:33 | PC.NURSE ---
Ethanol and urine lab order pending
--- NOTE | 2021-09-17 07:15 | PC.NURSE ---
patient appears to remain asleep at present respirations are even and unlabored patient appears in no distress
[2021-09-17 11:39] VITALS: BP 128/86; PULSE 83; RESP 16; TEMP 36.8; O2SAT 98
[2021-09-17 11:40] LABS: Ethanol < 10 mg/dL
--- NOTE | 2021-09-17 11:50 | PC.NURSE ---
Addendum entered by Rajiv López 09/17/21 12:27: YESSICA Herbert instructed to call security and perform search. Addendum entered by Rajiv López 09/17/21 12:26: YESSICA Herbert notified of the situation. Addendum entered by Rajiv López 09/17/21 12:10: Patients visitor removed from [facility] per security. Original Note: Upon this RN starting shift patient had visitor. Patient told prior staff that this visitor was uncle. BHN spoke to patients cousin who reportedly told her that this visitor is actually her boyfriend who is not allowed to see this patient. Patients cousin is bringing court ordered document. Security called and visitor removed.
[2021-09-17] MEDS: hydrOXYzine HCL 25 MG TABLET PO ×2 (12:41→15:59)
[2021-09-17] MEDS: Nicotine 21 MG PATCH.TD24 TRANSDERMA (15:14)
[2021-09-17] MEDS: Ibuprofen 800 MG TABLET PO (16:38)
[2021-09-17] MEDS: LORazepam 1 MG TABLET 2 MG PO (16:49)
[2021-09-17] MEDS: OLANZapine 5 MG TABLET PO (16:49)
[2021-09-17] MEDS: diphenhydrAMINE HCL 25 MG TABLET 50 MG PO (16:49)
--- NOTE | 2021-09-17 16:56 | PC.NURSE ---
Patient became beligerent throwing water on staff/ security, kicking doors requested something for anxiety, pa notified and PO meds given per order.
--- NOTE | 2021-09-18 | ECG_ITS ---
Test Reason : detoxing Blood Pressure : / mmHG Vent. Rate : 091 BPM Atrial Rate : 091 BPM P-R Int : 140 ms QRS Dur : 088 ms QT Int : 376 ms P-R-T Axes : 040 -33 000 degrees QTc Int : 462 ms Normal sinus rhythm Left axis deviation Low voltage QRS Abnormal ECG When compared with ECG of 19-SEP-2020 17:14, T wave inversion now evident in Inferior leads Nonspecific T wave abnormality, worse in Anterior leads Referred By: Archana Cheng Electronically Signed By:THIEN MARTÍNEZ MD
[2021-09-18] MEDS: Ibuprofen 400 MG TABLET PO ×2 (04:25→15:34)
[2021-09-18] MEDS: LORazepam 1 MG TABLET PO (04:25)
--- NOTE | 2021-09-18 04:27 | PC.NURSE ---
Patient reported anxiety 6/10, and leg pain, provider notified/ordered Ativan 1 mg PO and Ibuprofen 400 mg po/administered as ordered/pending effect, behavior non concerning, VSS, will continue to monitor.
[2021-09-18 04:31] VITALS: BP 118/94; PULSE 89; RESP 18; TEMP 36.2; O2SAT 99
--- NOTE | 2021-09-18 06:06 | PC.NURSE ---
Patient slept 10 hours, woke up at 0400 am and up since then. No distress observed/reported, behavior appropriate and non concerning, medication complaint, patient is not on any medication, disposition per [facility] is section 12 inpatient bed search, VSS, will continue to monitor.
[2021-09-18] MEDS: Nicotine 21 MG PATCH.TD24 TRANSDERMA (06:50)
--- NOTE | 2021-09-18 07:08 | PC.NURSE ---
patient appears to remain asleep at present respirations are even and unlabored patient appears in no distress
[2021-09-18 08:05] VITALS: BP 110/58; PULSE 98; RESP 12; TEMP 36; O2SAT 99
[2021-09-18] MEDS: Acetaminophen 325 MG TABLET 650 MG PO (09:20)
[2021-09-18] MEDS: LORazepam 1 MG TABLET 2 MG PO (10:04)
--- NOTE | 2021-09-18 12:36 | MHC.RECOVSUP ---
Recovery Support note: Patient is 26 year old Bulgarian speaking female in [facility] currently awaiting a psychiatric admission. This contract writer met with patient at the request of patient's RN to discuss Suboxone and withdrawal symptoms. Patient denied withdrawal symptoms at this time to this contract writer. Patient reports she weaned herself off of Suboxone however she took 8/2mg film prior to coming to the hospital. Patient denies recent substance use however has not completed toxicology. Patient reports she is not interested in resuming Suboxone at this time. Informed patient that if she changes her mind about this while in treatment she could inform her provider and patient acknowledged. Encouraged patient to inform staff if withdrawal symptoms occur. Patient states when I get off Suboxone I usually don't have withdrawal symptoms until the 6th day, that is when I start to get body aches. Patient had questions regarding psychiatric admission and the CV which were addressed. Discussed case with patient's RN.
[2021-09-18] MEDS: Cyclobenzaprine HCl 10 MG TABLET PO (13:36)
--- NOTE | 2021-09-18 15:22 | MHC.CARE ---
Pt is requesting to be discharge. CARE Team consulted with Afia Gardiner NP who met with Pt earlier in the day. Pt does not meet criteria to be involuntary hospitalized at this time. Pt can be discharged. Pt is provided [facility] Crisis information.
[2021-09-18] MEDS: hydrOXYzine HCL 50 MG TABLET PO (15:33)
[2021-09-18 15:39] LABS: Amphetamine Screen Urine Not Detected (Not Detect); Barbiturates, Urine Not Detected (Not Detect); Benzodiazepines Screen Urine Not Detected (Not Detect); Cannabinoid Screen Urine Not Detected (Not Detect); Cocaine Screen Urine Not Detected (Not Detect); Fentanyl, urine Not Detected (Not Detect); Opiate Screen Urine Not Detected (Not Detect); Phencyclidine Screen Urine Not Detected (Not Detect)
--- NOTE | 2021-09-18 16:37 | MHC.CARE ---
Patient expressed interest in having outpatient providers and was referred to [facility], they will reach out to her directly to schedule. CARE Team will provide F/U call to patient tomorrow.
== END 2021-09-18 15:45 | disposition home or self-care (01) ==
PROVIDERS: Physician Assistant Medical; Emergency Provider Student in an Organized Health Care Education/Training Program
DX: F33.1 Major depressive disorder, recurrent, moderate (principal); F14.10 Cocaine abuse, uncomplicated; F11.20 Opioid dependence, uncomplicated; R45.1 Restlessness and agitation; F17.200 Nicotine dependence, unspecified, uncomplicated; Z20.822 Contact with and (suspected) exposure to COVID-19; Z79.899 Other long term (current) drug therapy
CPT/HCPCS: 36415; 80307; 82077; 87635; 93005; 99285; J1200; Q0163

== ENCOUNTER 2021-09-30 21:26 | Emergency (ER) | payer MEDICAID, SELFPAY ==
--- NOTE | 2021-09-30 21:32 | ED_ITS ---
HPI - Overdose General Chief Complaint: Overdose Stated Complaint: OD Source: patient and EMS Mode of arrival: EMS Limitations: no limitations History of Present Illness HPI Narrative: 26-year-old female presents via EMS for opioid overdose. Was given 8 mg of intranasal Narcan by EMS. Patient is angry, threatening staff with physical violence. Patient denies SI and HI. Denies that this was an intentional over dose. And does not want detox. Patient states that her whole body hurts and is asking for fentanyl. complaint: accidental overdose Onset (ago): hour(s) (Within the hour of arrival) Intent: wanted to go to sleep Context: Intentional Overdose: drug/ETOH problems Context: Accidental Overdose: wanted to get high Treatments Prior to Arrival: narcan Related Data Home Medications Medication Instructions Recorded Confirmed No Known Home Meds 09/17/21 09/17/21 Allergies Allergy/AdvReac Type Severity Reaction Status Date / Time bee venom protein (honey bee) Allergy Intermediate Localized Verified 04/20/21 15:03 swelling near sting Review of Systems Review of Systems: Constitutional: No Fever, No Chills ENT/Mouth: No Ear Pain, No Hoarseness, No sore throat Eyes: No Eye Pain, No Swelling, No Redness, No Foreign Body Cardiovascular: No Chest Pain, No SOB Respiratory: No Cough, No Dyspnea Gastrointestinal: No Nausea, No Vomiting, No Diarrhea, No abdominal Pain Genitourinary: No Dysuria, No Hematuria Musculoskeletal: positive full body pain, No Myalgias, No Joint Swelling Skin: No Skin lacerations, No rash Neuro: No Weakness, No Numbness, No Paresthesias, No Loss of Consciousness, No Dizziness, No Headache Psych: Positive opioid overdose, No Anxiety/Panic, No Depression Heme/Lymph: no easy bruising, no Lymphadenopathy Endocrine: No Polyuria, No Polydipsia Yes all other systems are reviewed and are negative PMFSH Past Medical History Attestation statement: The following information was validated with the patient. Source: old records reviewed Medical History BV (bacterial vaginosis) MDD (major depressive disorder), recurrent episode, moderate Substance abuse Social History Social History Household Members: None Housing: Homeless Do you presently have visiting nurse or other home services: No Unable to assess alcohol history related to: Unknown Alcohol intake: unknown Patient Tobacco Use Status: Current everyday Tobacco user Tobacco use type: Cigarette Cigarette Packs Per Day: 1.5 Cigarettes Per Day: 30.0 Substance Use Type: Crack/Cocaine and Heroin Advance Directives: No Advance Directives Information Provided: No service: No Current occupational status: unemployed Sexual orientation: Bisexual Physical Exam Vital Signs: Vital Signs: Last Vital Signs Temp 99.9 F 09/30/21 22:53 Pulse 86 09/30/21 22:53 Resp 14 09/30/21 22:53 BP 115/54 L 09/30/21 22:53 Pulse Ox 96 09/30/21 22:53 O2 Del Method 09/30/21 22:53 BMI result Body Mass Index 20.5 Appearance: Alert. Oriented X3. Angry. Eyes: Pupils equal, round and reactive to light. ENT: Pharynx normal. Neck: Normal inspection. Neck supple. CVS: Normal heart rate and rhythm. Pulses normal. Respiratory: No respiratory distress. Breath sounds normal. Abdomen: Soft and nontender. Skin: Multiple track shaffer and skin picking scabs to extremities. Extremities: No lower extremity edema. Moves all extremities against resistance. Neuro: No motor deficit. No sensory deficit. Cranial nerves 2-12 intact. Course Course Course Narrative: 26-year-old female presents via EMS after being found unresponsive. Given 8 mg of Narcan by EMS. Patient woke up, even unlabored respirations with hemodynamically stable vital signs. Patient is angry, verbally aggressive and threatening staff. Patient states that her whole body hurts and is demanding fentanyl. Patient not answering questions, and swearing at staff. 23:22 patient belligerent, verbally aggressive to staff. Patient is not suicidal or homicidal. Does not want detox. Alert oriented x4. Answering questions appropriately. Even unlabored respirations. Vital signs are stable and within normal limits. Plan of care is to discharge home. Patient given p.o. fluids and sandwich. MDM - Overdose Differential Diagnosis Differential diagnosis: Likely drug overdose Medical Records Attestation: I reviewed the patient's medical records. Discharge Plan Discharge Clinical Impression: Opioid use disorder Patient Disposition: Home, Self-Care Instructions: Opioid Use Disorder (ED) Additional Instructions: Consider detox. Thank you for choosing this emergency department for evaluation. Please follow-up with primary care physician as needed. Return to the emergency department for any new, concerning, or worsening symptoms. Prescriptions: No Action No Known Home Meds
[2021-09-30 21:43] VITALS: BP 113/81; PULSE 95; RESP 16; TEMP 37.4; O2SAT 97; BMI 20.5
[2021-09-30 22:53] VITALS: BP 115/54; PULSE 86; RESP 14; TEMP 37.7; O2SAT 96
== END 2021-09-30 23:31 | disposition home or self-care (01) ==
PROVIDERS: Emergency Provider Emergency Medicine Emergency Medical Services
DX: F19.10 Other psychoactive substance abuse, uncomplicated (principal); R45.6 Violent behavior; F33.1 Major depressive disorder, recurrent, moderate; F17.210 Nicotine dependence, cigarettes, uncomplicated
CPT/HCPCS: 99283

== ENCOUNTER 2021-10-01 10:14 | Emergency (ER) | payer MEDICAID, SELFPAY ==
[2021-10-01 10:19] VITALS: BP 130/58; PULSE 75; RESP 17; TEMP 37.1; O2SAT 97
[2021-10-01 10:22] VITALS: BP 110/62; BMI 19.5
--- NOTE | 2021-10-01 11:01 | ED.ANXIETY ---
HPI - Anxiety General Chief Complaint: Anxiety Stated Complaint: anxiety Time Seen by Provider: 10/01/21 10:21 Source: patient and EMS Mode of arrival: EMS Limitations: no limitations History of Present Illness HPI narrative: This is a 26-year-old female with a history of polysubstance abuse, anxiety and depression who presents with reports of anxiety and seeking medication. Patient tells me that she has been using heroin over the last few weeks. She has been using several bags per day. She tells me she is doing this to self medicate for her anxiety and depression. Patient tells me that she occasionally uses cocaine. She denies IV drug abuse. She denies additional substance use. No suicidal homicidal ideations. No physical complaints. Patient is not interested in detox resources. She would like medication for her anxiety only Of note, the patient was seen early this morning for heroin overdose requiring Narcan. Related Data Previous Rx's Medication Instructions Recorded hydroxyzine HCl 25 mg tablet 25 mg PO TID PRN anxiety #20 tabs 10/01/21 Allergies Allergy/AdvReac Type Severity Reaction Status Date / Time bee venom protein (honey bee) Allergy Intermediate Localized Verified 04/20/21 15:03 swelling near sting Review of Systems Review of Systems: Yes all other systems are reviewed and are negative Constitutional: Constitutional: Reports no additional constitutional complaints, Denies body ache(s), Denies chills, Denies fever(s), Denies headache(s) and Denies weakness Eyes: Eyes: Reports no additional eye complaints and Denies change in vision ENT: Reports system reviewed and no additional complaints, except as documented, Denies dizziness, Denies headache(s), Denies nasal congestion, Denies nasal discharge and Denies neck pain Cardiovascular: Cardiovascular: Reports no additional cardiovascular complaints, Denies chest pain, Denies leg edema and Denies dyspnea Respiratory: Respiratory: Reports no additional respiratory complaints, Denies cough and Denies dyspnea Gastrointestinal: Gastrointestinal: Reports no additional gastrointestinal complaints, Denies abdominal pain, Denies diarrhea, Denies nausea and Denies vomiting Genitourinary: Genitourinary: Reports no additional female genitourinary complaints and Denies urinary incontinence Musculoskeletal: Musculoskeletal: Reports no additional musculoskeletal complaints, Denies back pain, Denies arthralgias, Denies joint swelling, Denies neck pain, Denies numbness and Denies tingling Integumentary/Breasts: Skin/Breast: Reports system reviewed and no additional complaints, except as docu and Denies rash Neurologic: Reports system reviewed and no additional complaints, except as documented, Denies Abnormal speech present, Denies dizziness, Denies headache(s), Denies numbness, Denies tingling and Denies weakness Psychiatric: Psychiatric: Reports anxiety, Denies depression, Denies homicidal ideation and Denies suicidal ideation [facility] Past Medical History Attestation statement: The following information was validated with the patient. Source: old records reviewed and nursing notes reviewed Medical History BV (bacterial vaginosis) MDD (major depressive disorder), recurrent episode, moderate Substance abuse Social History Social History Household Members: None Housing: Homeless Do you presently have visiting nurse or other home services: No Unable to assess alcohol history related to: Unknown Alcohol intake: unknown Patient Tobacco Use Status: Current everyday Tobacco user Tobacco use type: Cigarette Cigarette Packs Per Day: 1.5 Cigarettes Per Day: 30.0 Substance Use Type: Crack/Cocaine and Heroin Advance Directives: No Advance Directives Information Provided: Yes service: No Current occupational status: unemployed Sexual orientation: Bisexual Physical Exam Vital Signs: Vital Signs: Last Vital Signs Temp 98.8 F 10/01/21 10:19 Pulse 75 10/01/21 10:19 Resp 17 10/01/21 10:19 BP 130/58 L 10/01/21 10:19 Pulse Ox 97 10/01/21 10:19 O2 Del Method 10/01/21 10:19 BMI result Body Mass Index 19.5 Const: General: cooperative, healthy appearing, comfortable and no acute distress Orientation/consciousness: patient oriented x3 Limitations: no limitations HEENT: Head: Yes normal to inspection Ears: hearing grossly normal bilaterally General nose exam: Normal external nose present Face and sinus: Yes normal facial exam Mouth: Normal oral and palatal mucosa present Throat: Yes posterior oropharynx normal Eyes: General: appearance normal, both eyes and all related structures Pupils: Equal, round and reactive pupils present Neck: Neck: Yes normal visual inspection Chest: Chest palpation & inspection: normal inspection of the chest Resp: Effort & Inspection: normal respiratory effort Auscultation: clear to auscultation bilaterally Cardio: Rate: regular rate Rhythm: regular rhythm Peripheral pulses: Peripheral pulses 2+ throughout GI: Inspection: Yes normal to inspection Palpation (GI): Soft to palpation and nontender Auscultation: normal bowel sounds Back/Spine/Pelvis: Thoracic/Lumbar Spine: thoracic and lumbar spine normal to inspection Skin: General skin exam: no rashes or lesions noted Neuro: General: patient oriented x3, no focal motor deficits and normal sensation to monofilament Cranial nerves: Yes CN's II-XII intact bilaterally and Yes Equal, round and reactive pupils present Cognition (Neuro): normal cognition Speech: No Abnormal speech present Gait exam (Neuro): Normal gait present Motor exam (neuro): 5/5 motor strength present throughout Extrem: General: Yes normal to inspection Course Course Course Narrative: Patient seeking medication for anxiety. She was seen by care team. She was offered detox. She declined this. She wants medication for anxiety only. I am hesitant to prescribe benzodiazepine and to someone who is actively using heroin and cocaine. We did discuss hydroxyzine which the patient was willing to take. Reviewed worrisome signs and symptoms and when to return to the emergency department. Comfortable discharge home. MDM - Anxiety MDM Narrative Medical decision making narrative: 26-year-old female who presents with reports of anxiety and seeking medication for anxiety. She is currently using heroin. She is not interested in detox. She has no suicidal or homicidal ideations. No physical complaints. Will consult care team Differential Diagnosis Differential diagnosis: Likely acute anxiety Medical Records Attestation: I reviewed the patient's medical records. Lab Data Attestation: I reviewed the patient's lab results. Discharge Plan Discharge Clinical Impression: Acute anxiety, Substance abuse Patient Disposition: Home, Self-Care Instructions: Polysubstance Abuse (ED), Anxiety (ED) Additional Instructions: You are welcome to return at any time if you are interested in detox Prescriptions: New hydroxyzine HCl 25 mg tablet 25 mg PO TID PRN (Reason: anxiety) Qty: 20 0RF Referrals: Physician,None [Primary Care Provider] - Interventions: ED Discharge Assessment Last Done: 10/01/21 11:07 Discharge Date/Time: 10/01/21 11:08
--- NOTE | 2021-10-01 11:28 | MHC.CARE ---
Pt was seen by CARE after a consult placed for anxiety, depression, substance abuse. Pt presents with reports of anxiety and seeking medication for anxiety. She stated the last time I was here asking for medication for anxiety they gave it to me and I left without it . Pt was not willing to answer questions and was vague. She made it clear that she was not interested in further discussion of MH sxs or tx options. Pt denied need for crisis referral and did not present with acute sxs to warrant crisis assessment. She stated she self medicates with illegal drugs but declined to provide further info as she said she did not want to get in trouble . She firmly declined discussion or referral for MAT and she did not wish to speak to Recovery team. She reported to ED provider that she is currently using heroin and stated she is not interested in detox.
== END 2021-10-01 11:08 | disposition home or self-care (01) ==
PROVIDERS: Emergency Provider Emergency Medicine
DX: F41.1 Generalized anxiety disorder (principal); F33.1 Major depressive disorder, recurrent, moderate; F17.210 Nicotine dependence, cigarettes, uncomplicated; F14.10 Cocaine abuse, uncomplicated; F11.10 Opioid abuse, uncomplicated; Z79.899 Other long term (current) drug therapy; Z71.6 Tobacco abuse counseling
CPT/HCPCS: 99282